=== PATIENT | female | born 1935 | race Caucasian/White ===

== ENCOUNTER 2017-07-31 14:42 | Emergency (ER) | payer OTHER, MEDICARE ==
[~2017-07-31] VITALS: Ht 165.1 cm; Wt 45.4 kg
[~2017-07-31 14:42] MED LIST: ALBUTEROL1.25 MG/1 INH/SOL; AMERINET CHOIC500 MG PO; AMITIZA24 MCG PO; CITALOPRAM HBR10 MG PO; COLACE100 MG PO; GOLYTELY 40004000 ML PO; INCRUSE ELLI62.5 MCG PO; LEVOXYL50 MCG PO; LORAZEPAM0.5 M1 PO; MARINOL2.5 MG PO; MIRALAX17 GM PO; MOTRIN 600 MG600 MG PO; MULTIPLE VITAM1 EAC2 PO; Mucinex PO; OXYCODONE5 MG PO; PENICILLIN V P500 M1 PO; PERCOCET 325 MG1 TA2 PO; PREDNICOT10 MG PO; PREDNICOT5 MG PO; PREDNISONE10 M2 PO; PREDNISONE5 M1 PO; PRILOSEC OTC20 M1 PO; SPIRIVA 18 MCG18 MCG INH; TRAMADOL50 MG PO; TYLENOL500 MG PO; Theragran Vitamins PO; ULTRAM(MONOGRAP50 MG PO; ZITHROMAX500 M2 PO
--- NOTE | 2017-07-31 18:14 | ED UPPER/LOWER EXTREMITY COMPL ---
History of Present Illness General Chief Complaint: Fall Stated Complaint: FALL SKIN TEAR LFT ARM Source: patient Exam Limitations: no limitations Vital Signs & Intake/Output Vital Signs & Intake/Output Vital Signs Date Time Temp Pulse Resp B/P B/P Pulse O2 O2 Flow FiO2 Mean Ox Delivery Rate 07/31 1815 98.5 78 19 102/73 96 Nasal 1.5L Cannula 07/31 1549 97.4 78 18 113/68 94 Nasal 2.0L Cannula Allergies Coded Allergies: STATINS (UNKNOWN 09/07/15) codeine (HEADACHES 05/24/17) Reconcile Medications Amoxicillin 500 MG TABLET 1 TAB PO BID WOUND CARE Citalopram Hydrobromide (Citalopram HBr) 10 MG TABLET 1 TAB PO DAILY MENTAL HEALTH (Reported) Ibuprofen (Motrin 600 MG Tab) 600 MG TAB 1 TAB PO Q6P PRN PAIN Levothyroxine Sodium (Levoxyl) 50 MCG TABLET 1 TAB PO DAILY THYROID (Reported ) Lorazepam 0.5 MG TABLET 1 TAB PO QHS SLEEP (Reported) Multivitamin (Multiple Vitamins) 1 EACH TABLET 1 TAB PO DAILY SUPPLEMENT ( Reported) Penicillin V Potassium 500 MG TABLET 1 TAB PO 4 TIMES/DAY PROPHYLAXIS ( Reported) Umeclidinium [place] (Incruse Ellipta) 62.5 MCG BLST.W.DEV 1 PUFF PO DAILY BREATHING PROBLEMS (Reported) Triage Note: PT TO ED S/P "UNPLUGGING TV AND FELL, SCRABBED MY LEFT LOWER ARM", BANDAIDE IN PLACE NO ACTIVE BLEEDING NOTED. PT DENIES HEAD STRIKE OR LOC. ALERT AND ORIENTED IN TRIAGE. Triage Nurses Notes Reviewed? yes Onset: Abrupt Duration: constant Timing: recent history Severity: mild Severity Numbers: 1 HPI: Patient is a 82-year-old female who presents mentions a nap yesterday while in the standing position bent over unplugging her TV and she subsequently lean forward and scraped her left wrist and hand to the wall resulting in skin care Bleeding has been controlled tetanus is unknown patient denies any pain denies any preceding episodes of lightheadedness sensation of dizziness denies any head strike patient is here for wound evaluation Patient denies any pain to the left wrist or hand or elbow (Luke NORRIS,Lincoln) Past History Travel History Traveled to [place] past 21 day No Medical History Any Pertinent Medical History? 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 No (Lincoln Lizarraga) Review of Systems Review of Systems Constitutional: Reports: no symptoms. EENTM: Reports: no symptoms. Respiratory: Reports: no symptoms. Cardiovascular: Reports: no symptoms. Gastrointestinal/Abdominal: Reports: no symptoms. Genitourinary: Reports: no symptoms. Musculoskeletal: Reports: no symptoms. Skin: Reports: see HPI. Neurological/Psychological: Reports: no symptoms. Hematologic/Endocrine: Reports: see HPI, bleeding. Immunological: Reports: no symptoms. All Other Systems: Reviewed and Negative (Lincoln Lizarraga) Physical Exam Physical Exam General Appearance: no apparent distress, alert, thin Head: atraumatic Eyes: Bilateral: normal appearance. Ears, Nose, Throat: hearing grossly normal Neck: normal inspection Cardiovascular/Respiratory: no respiratory distress Peripheral Pulses: 2+ radial (L) Elbow Left: normal range of motion, normal inspection Hand Left: normal range of motion, evidence of injury Neurologic/Tendon: normal sensation, normal motor functions, normal tendon functions Skin: normal color Diagram Hands Back 1) 2.5 cm skin flap superficial skin tear no active bleeding 2) 2 cm skin flap superficial skin tear no active bleeding 3) 1 cm superficial skin flap skin tear no active bleeding 4) Full active range of motion of left wrist nontender dermatomes intact radial pulse +2 capillary refill less than 2 seconds (Lincoln Lizarraga) Progress Differential Diagnosis: arterial insufficiency, compartment syndrome, contusion, dislocation, DVT, fracture, gout, septic arthritis, sprain, tendon injury Plan of Care: No concerns of fracture on examination patient has no tenderness upon palpation No concerns of tendon deficit Patient was offered tetanus update however declines The wound was irrigated was 360 mL of sterile water then using benzoin and Steri -Strips the margins were revised to THE 3 superficial skin tear wound An Wild wrap was placed to left wrist (Lincoln Lizarraga) Departure Departure Disposition: HOME OR SELF CARE Condition: Stable Clinical Impression Primary Impression: Tear of skin of left wrist Referrals: Beena Mcdaniel APRN (PCP/Family) Additional Instructions: DISCUSSED BEGIN TO THE CHANGE THE DRESSINGS ONCE A DAY for the following 4 days and leave the area open to improve healing THE STERI STRIPS THAT HAVE BEEN APPLIED WILL FALL OFF IN 4-5 DAYS IF YOU NOTE SIGNS OF INFECTION SUCH REDNESS, PAIN, SWELLING, DISCHARGE RETURN TO THE ER Begin the prescription of amoxicillin as directed keep area dry and clean YOU CAN Prescriptions waiting at [facility] Departure Forms: Customer Survey General Discharge Information Prescriptions: Current Visit Scripts Amoxicillin 1 TAB PO BID #10 TAB (Lincoln Lizarraga) PA/CHECKOUT SUPERVISOR Co-Sign Statement Statement: ED Attending supervision documentation- [x] I saw and evaluated the patient. I have also reviewed all the pertinent lab results and diagnostic results. I agree with the findings and the plan of care as documented in the PA's/CHECKOUT SUPERVISOR's documentation. [] I have reviewed the ED Record and agree with the PA's/CHECKOUT SUPERVISOR's documentation. [] Additions or exceptions (if any) to the PAs/CHECKOUT SUPERVISOR's note and plan are summarized below: [] (Yaw Ferrari DO)
[2017-07-31 18:15] VITALS: BP 102/73
[2017-07-31] MEDS ORDERED: AMOXICILLIN500 M3 PO (18:36)
== END 2017-07-31 18:56 ==
LOC: ERH 14:42
DX: S61.512A Laceration without foreign body of left wrist, initial encounter (principal); W45.8XXA Other foreign body or object entering through skin, initial encounter; Y92.9 Unspecified place or not applicable; Y93.9 Activity, unspecified

== ENCOUNTER 2017-11-22 12:46 | Inpatient (IN) | payer OTHER, MEDICARE ==
[~2017-11-22] VITALS: Ht 160 cm; Wt 44.6 kg
[~2017-11-22 12:46] MED LIST changes: +AMOXICILLIN500 M3 PO
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
[2017-11-22 14:29] LABS: ABSOLUTE BASOPHIL COUNT 0 /CUMM (0.0-0.2); ABSOLUTE EOSINOPHIL COUNT 0 /CUMM (0.0-0.7); ABSOLUTE GRANULOCYTE CT 6.8 /CUMM (1.4-6.5); ABSOLUTE LYMPH COUNT 0.4 /CUMM (1.2-3.4); ABSOLUTE MONOCYTE COUNT 0.4 /CUMM (0.10-0.60); BASOPHIL % 0.3 % (0.0-2.0); EOSINOPHIL % 0.2 % (0-5); GRANULOCYTE % 89.1 % (42.2-75.2); HEMATOCRIT 36.2 % (37-47); MEAN CORPUSCULAR HGB 30.3 PG (27.0-31.0); MEAN CORPUSCULAR HGB CONC 32.4 G/DL (33.0-37.0); MEAN CORPUSCULAR VOLUME 93.7 FL (81.0-99.0); MEAN PLATELET VOLUME 6.8 FL (7.4-10.4); PLATELET COUNT 218 /CUMM (130-400); RBC DISTRIBUTION WIDTH 16.5 % (11.5-14.5); RED BLOOD CELL CT 3.86 /CUMM (4.20-5.40); WHITE BLOOD CELL COUNT 7.6 /CUMM (4.8-10.8)
[2017-11-22 14:42] LABS: PT 11.6 SEC (9.4-12.5); PTT 29 SEC (25-37)
--- NOTE | 2017-11-22 14:57 | RADIOLOGY REPORT ---
EXAMINATION: XR PORTABLE CHEST CLINICAL INFORMATION: Cough, weakness, shortness of breath. Evaluate for pneumonia. COMPARISON: None TECHNIQUE: Portable AP 85 degrees upright view of the chest was obtained. FINDINGS: The heart is normal size. There is no change in the tortuous, ectatic, atherosclerotic thoracic aorta. There is no change in mild bilateral upper lobe scarring. There is no definite congestion or focal consolidation. IMPRESSION: Stable chronic findings. No acute cardiopulmonary process.
--- NOTE | 2017-11-22 15:33 | History & Physical ---
Shital Doan 11/22/17 1533: General Information and HPI MD Statement: I have seen and personally examined RADHA ORTIZ and documented this H&P. The patient is a 82 year old F who presented with a patient stated chief complaint of shortness of breath. Source of Information: patient, family, old records Exam Limitations: no limitations History of Present Illness: 80 year woman from home, with past medical history of COPD on 1.5L of home O2, Non Hodgkins Lymphoma status post chemo and radiation therapy in 2016 with complications of right eye blindness and decreased sensation on right side of face, history of lung nodule, salivary carcinoma, anxiety and hypothyroidism brought in for evaluation of worsening shortness of breath and increasing oxygen requirements. Her sister whom she lives with has been noticing worsening deconditioning over the past week. On Friday patient had 2 episodes of vomiting that was nonbloody, on she developed some right sided chest pain at his worst 8 out of 10 which she describes as at times sharp with radiation to the left side, sometimes lasting 1 hour. On interview she was pain-free. She tried Tylenol which seemed to help with the pain. Denies any fever, cought, expectoration, palpitations, at baseline she sleeps in a reclined angle. She also been experiencing some abdominal pain more mid with radiation to left upper quadrant describes it as an aching and not associated with food, diarrhea or bright red bleeding per rectum. She has been having generalized weakness and more weakness in her lower leg extremities associated with decreased p.o. intake. The night before admission she said she fell when she miscalculated sitting on the sofa denies any dizziness, loss of awareness, or head strike. She is due to go to [facility] next Friday for a PET scan. Allergies/Medications Allergies: Coded Allergies: STATINS (UNKNOWN PT DOES NOT REMEMBER 11/22/17) codeine (HEADACHES 05/24/17) Home Med list Citalopram Hydrobromide (Citalopram HBr) 10 MG TABLET 1 TAB PO DAILY DEPRESSION (Reported) Levothyroxine Sodium (Levoxyl) 50 MCG TABLET 1 TAB PO DAILY THYROID (Reported ) Lorazepam 0.5 MG TABLET 1 TAB PO QHS SLEEP (Reported) Multivitamin (Multiple Vitamins) 1 EACH TABLET 1 TAB PO DAILY SUPPLEMENT ( Reported) Umeclidinium [place] (Incruse Ellipta) 62.5 MCG BLST.W.DEV 1 PUFF PO DAILY COPD (Reported) Compliance With Home Meds: GOOD Past History Travel History Traveled to [place] past 21 day No Medical History Neurological: NONE EENT: NONE Cardiovascular: hypertension, hyperlipidemia Respiratory: COPD, WEARS 2L AT BASELINE Gastrointestinal: ERCP Hepatic: NONE Renal: NONE Musculoskeletal: NONE Psychiatric: anxiety Endocrine: hypothyroidism Blood Disorders: NONE Cancer(s): NON HODGKINS LYMPHOMA, MELANOMA, SALIVARY CARCINOMA TRIAGE SPECIALIST/Reproductive: HYSTERECTOMY History of MRSA: No History of VRE: No History of CDIFF: No Surgical History Surgical History: cholecystectomy, CYBERKNIFE SURGERY SINUS SURGERY FOR CANCER Past Family/Social History Family History Relations & Conditions if any Relation not specified for: *No pertinent family history Psychosocial History Who Do You Live With? Sister Services at Home: None Primary Language: Sierra Leonean Functional Ability ADLs Independent: dressing, eating, toileting, bathing. Ambulation: walker Review of Systems Review of Systems Constitutional: Reports: see HPI. Exam & Diagnostic Data Last 24 Hrs of Vital Signs/I&O Vital Signs Date Time Temp Pulse Resp B/P B/P Pulse O2 O2 Flow FiO2 Mean Ox Delivery Rate 11/22 1737 97.6 93 16 118/72 93 Nasal 2.0L Cannula 11/22 1624 98.4 90 22 114/58 95 Nasal 2.0L Cannula 11/22 1315 95 Nasal 4.0L Cannula 11/22 1310 97.2 90 20 96/56 95 Nasal 4.0L Cannula Intake & Output 11/22 1600 11/22 0800 11/22 0000 Intake Total Output Total Balance Patient 105 lb Weight Weight Reported by Patient Measurement Method Physical Exam General Appearance Alert, Oriented X3, Cooperative, No Acute Distress, severe kyphosis HEENT Atraumatic, dry mucous membranes, right eye closed and crusted, left eye round and reactive to light Neck Supple, No JVD, +2 Carotid Pulse wo Bruit Lymphatic Cervical nl Cardiovascular Regular Rate, Normal S1, Normal S2 Lungs b/l decreased Bs Abdomen Normal Bowel Sounds, Soft, tenderness to palplation in mid to right upper quadrant Neurological Normal Speech, Normal Tone, Reflexes 2+, decreased power L>R 2/5,3 /5 respectively Extremities No Edema, Normal Pulses Diagnostic Data EKG Results NSR CXR Results FINDINGS: The heart is normal size. There is no change in the tortuous, ectatic, atherosclerotic thoracic aorta. There is no change in mild bilateral upper lobe scarring. There is no definite congestion or focal consolidation. IMPRESSION: Stable chronic findings. No acute cardiopulmonary process. Assessment/Plan Assessment: 80 year woman from home, with past medical history of COPD on 1.5L of home O2, Non Hodgkins Lymphoma status post chemo and radiation therapy in 2016 with complications of right eye blindness and decreased sensation on right side of face, history of lung nodule, salivary carcinoma, anxiety and hypothyroidism brought in for evaluation of worsening shortness of breath and increasing oxygen requirements. Found to be hypoxic in the ED and her breathing improved with nebulization and one-time dose of 125 IV Solu-Medrol Vitals on admission temperature 97.2, heart rate 90, respiratory 20, blood pressure 96/56, saturating 95% on 4 L Labs significant for metabolic acidosis likely compensatory, proBNP of 300, lactic acid 0.6, troponin negative. Chest x-ray just shows tortuous atherosclerotic thoracic aorta Problem list: Acute on chronic hypoxic respiratory failure Hypothyroidism History of non-Hodgkin's lymphoma History of salivary carcinoma Plan: Admit to telemetry floor for continuous cardiac monitoring we will trend troponin EKG to rule out ACS ATC/nebs, supplemental oxygen Continue IV steroids and azithromycin Pulm consult in a.m. [patient sees Dr. Zelaya as outpatient] dvt ppx sc lovenox code status DNR/DNI As Ranked By This Provider Problem List: 1. COPD (chronic obstructive pulmonary disease) 2. Chest pain Core Measures/Misc (03/23) Acute Coronary Syndrome ACS Diagnosis: No Congestive Heart Failure Congestive Heart Failure Diagnosis No Cerebrovascular Accident CVA/TIA Diagnosis: No VTE (View Protocol) VTE Risk Factors Cancer/chemo/othr therapy No Mechanical VTE Prophylaxis d/t N/A MechProphylax Ordered No VTE Pharm Prophylaxis d/t NA PharmProphylax ordered Sepsis (View protocol) Sepsis Present: No Delroy Dobbs 11/22/17 6702: Attending MD Review Statement Attending Statement Attending MD Statement: examined this patient, discuss w/resident/PA/MANAGING MANAGER, agreed w/resident/PA/MANAGING MANAGER, discussed with family, reviewed EMR data (avail) Attending Assessment/Plan: 82 yr old f with pmh of copd on home oxygen, NHL s/p chemo and radiation who lives with her sister presented with worsening sob and weakness and chest pain over the last few dasy. Pt improved with iv solumedrol and nebs in ER. Her torp in ER was negative. CXR done in ER shows no pnemonia. Pt also had some vomitting on friday. Acute hypoxic resp failure secondary to copd exac- cont on iv steroid and zithromax. will get pulm consult. Put on TRC nebs. CHest pain - admit on tele and r/o ACS with serial trop. d/w pt and pts sister at bedside the care plan.
[2017-11-22 17:37] VITALS: BP 118/72
[2017-11-22 22:18] VITALS: BP 132/78
[2017-11-23 06:56] VITALS: BP 124/76
--- NOTE | 2017-11-23 09:14 | PN- Housestaff ---
Luis MCKAY,[facility] 11/23/17 0914: Subjective Follow-up For: Acute hypoxic respiratory possibly secondary to COPD exacerbation Tele-Events Since Last Visit: Sinus rhythm Subjective: Afebrile, hemodynamically stable, heart rate in the 90s, saturating well on 3 L of oxygen(he was 1.5-2 baseline). She looks sleepy and mildly lethargic but appropriately responds to questions. She denies any current active complaints Review of Systems Constitutional: Reports: no symptoms, see HPI. Objective Last 24 Hrs of Vital Signs/I&O Vital Signs Date Time Temp Pulse Resp B/P B/P Pulse O2 O2 Flow FiO2 Mean Ox Delivery Rate 11/23 0800 94 Nasal 3.0L Cannula 11/23 0656 97.6 95 18 124/76 90 Nasal Cannula 11/23 0000 Nasal 3.0L Cannula 11/22 2218 97.5 97 18 132/78 91 Nasal Cannula 11/22 2046 Nasal 2.0L Cannula 11/22 1800 Nasal 2.5L Cannula 11/22 1737 97.6 93 16 118/72 93 Nasal 2.0L Cannula 11/22 1624 98.4 90 22 114/58 95 Nasal 2.0L Cannula Intake & Output 11/23 1600 11/23 0800 11/23 0000 Intake Total 635 450 Output Total 250 250 Balance 385 200 Intake, IV 615 150 Intake, Oral 20 300 Output, Urine 250 250 Patient 44.452 kg Weight Weight Bed scale Measurement Method Physical Exam General Appearance: Alert, Oriented X3, Cooperative, mildly lethargic and sleepy Skin: No Rashes HEENT: Atraumatic, PERRLA, EOMI, Mucous Membr. moist/pink Neck: No JVD Cardiovascular: Regular Rate, Normal S1, Normal S2, No Murmurs Lungs: decrease air-entry over lung base bilaterally Abdomen: Soft, No Tenderness Neurological: Normal Speech Extremities: No Clubbing, No Cyanosis, No Edema Current Medications: Current Medications Sig/Abhi Start time Last Medication Dose Route Stop Time Status Admin Acetaminophen 500 MG Q6P PRN 11/22 2345 AC 11/23 PO 0859 Albuterol Sulfate 3 ML Q4P PRN 11/22 2145 AC INH Aspirin 81 MG DAILY 11/22 1703 AC 11/23 PO 0819 Azithromycin 500 MG DAILY@1430 11/23 1430 AC Sodium Chloride 250 ML IV Azithromycin 500 MG ONCE ONE 11/22 1330 DC 11/22 Sodium Chloride 250 ML IV 11/22 1429 1437 Citalopram 10 MG DAILY 11/23 0900 AC 11/23 Hydrobromide PO 08 Enoxaparin Sodium 40 MG DAILY 11/23 0900 CAN SC Enoxaparin Sodium 40 MG DAILY 11/23 0900 AC 11/23 SC 08 Levothyroxine Sodium 0.05 MG DAILY AC 11/23 0700 AC 11/23 PO 0534 Lorazepam 0.5 MG AT BEDTIME 11/22 2100 AC 11/22 PO 11/29 Methylprednisolone 40 MG Q8 11/22 2200 AC 11/23 IV 0532 Methylprednisolone 0 .STK-MED ONE 11/22 1430 DC .ROUTE Multivitamins 1 TAB DAILY 11/23 09 CAN PO Multivitamins 1 TAB DAILY 11/23 0900 AC 11/23 Therapeutic PO 08 Sodium Chloride 1,000 ML Q13H 11/22 1628 AC 11/23 IV 11/23 1827 0821 Last 24 Hrs of Lab/Jorge A Results Last 24 Hrs of Labs/Mics: Laboratory Tests 11/23/17 0220: Troponin I < 0.01 11/23/17 0125: Urine Color YEL, Urine Clarity HAZY H, Urine pH 6.0, Ur Specific [place] >= 1.030, Urine Protein TRACE H, Urine Ketones 40 H, Urine Nitrite NEG, Urine Bilirubin NEG@ICTO, Urine Urobilinogen 0.2, Ur Leukocyte Esterase SMALL H, Ur Microscopic SEDIMENT EXAMINED, Urine RBC 1-3, Urine WBC 25-50 H, Ur Epithelial Cells FEW, Urine Bacteria FEW H, Hyaline Casts RARE H, Urine Hemoglobin TRACE- INTACT, Urine Glucose NEG 11/22/17 2130: Troponin I < 0.01 11/22/17 1639: Lipase Cancelled 11/22/17 1611: Lactic Acid Cancelled 11/22/17 1405: Lactic Acid Cancelled, [id number] Pept Cancelled 11/22/17 1405: Bicarbonate Actual 35 H, Mixed VBG pH 7.25 L, Mixed VBG pCO2 80 H, Mixed VBG O2 Saturation 48 H, Carboxyhemoglobin 1.2 L, O2 Concentration % 4L, O2 Delivery Method NC, Anion Gap 9, Estimated GFR > 60, BUN/Creatinine Ratio 31.7 H, Glucose 119 H, Lactic Acid 0.6 L, Calcium 9.0, Total Bilirubin 0.7, AST 30, ALT 26, Alkaline Phosphatase 76, Troponin I < 0.01, Yfo-G-[id number] Pept 300 H, Total Protein 6.3, Albumin 3.7, Globulin 2.6, Albumin/Globulin Ratio 1.4, Lipase 47, PT 11.6, INR 1.06, APTT 29, CBC w Diff NO MAN DIFF REQ, RBC 3.86 L, MCV 93.7, MCH 30.3, MCHC 32.4 L, RDW 16.5 H, MPV 6.8 L, Gran % 89.1 H, Lymphocytes % 5.1 L, Monocytes % 5.3, Eosinophils % 0.2, Basophils % 0.3, Absolute Granulocytes 6.8 H, Absolute Lymphocytes 0.4 L, Absolute Monocytes 0.4, Absolute Eosinophils 0, Absolute Basophils 0, Phlebotomy Draw Site [facility] PORT Microbiology 11/22 1425 BLOOD: Blood Culture - RES 11/22 1405 BLOOD: Blood Culture - RES Assessment/Plan Assessment: 80/F with PMHx of COPD on 1.5L O2 at home, non-hodgkins lymphoma s/p chemo and radiation therapy in 2016 with complications of right eye blindness and decreased sensation on right side of face, history of lung nodule, salivary carcinoma, anxiety and hypothyroidism brought in for evaluation of worsening SOB and increasing oxygen requirements. Found to be in acute hypoxic respiratory failure in the ED, improved after nebulizer's and IV steroids. Currently she reports improvement of her symptom however she still require 3 L of oxygen to maintain oxygen saturation in the mid to lower 90s. She denies any chest pain fever, chills, or palpitation. ACS was ruled out with serial troponin and EKG. No sign or symptoms suggestive of pneumonia. She reports one episode of nonbloody vomiting on Friday and denies any episodes of vomiting since then. Problem list: * Acute on chronic hypoxic respiratory failure ( O2 sats 63% on ED) most likely COPD exacerbation. * Hypothyroidism * History of non-Hodgkin's lymphoma * History of salivary carcinoma Plan: We will continue * Telemetry monitoring * IV Solu-Medrol * IV azithromycin * TRC/nebs * Oxygen, will try to taper down as tolerated * Rest of home medication includes levothyroxine, citalopram, and aspirin -Regular diet -DVT ppx sc lovenox -DNR/DNI Problem List: 1. COPD exacerbation Pain Ratin Pain Location: na Pain Goal: Remain pain free Pain Plan: See A&P Tomorrow's Labs & Rationales: See A&P RinkuFernandokathe 11/23/17 1315: Attending Review Statement Attending Statement Attending MD Statement: examined this patient, discuss w/resident/PA/MULTIMEDIA PROJECT MANAGER, agreed w/resident/PA/MULTIMEDIA PROJECT MANAGER, reviewed EMR data (avail), discussed with nursing Attending Assessment/Plan: 82 yr old f with pmh of copd on home oxygen, NHL s/p chemo and radiation who lives with her sister presented with worsening sob and weakness and chest pain over the last few days. Pt improved with iv solumedrol and nebs in ER. Her torp in ER was negative. CXR done in ER shows no pnemonia. Pt also had some vomitting on friday. Acute hypoxic resp failure secondary to copd exac- cont on iv steroid and zithromax. will get pulm consult. cont on [facility] nebs. She is currently on 3 L oxygen by [place]. CHest pain - admit on tele and r/o ACS with serial trop. Trop times 3 negative. Await cardiology consult.
[2017-11-23 14:25] VITALS: BP 118/68
[2017-11-23 22:12] VITALS: BP 152/78
[2017-11-24 06:51] VITALS: BP 148/80
--- NOTE | 2017-11-24 07:08 | PN- Housestaff ---
David MCKAY,[facility] 11/24/17 0708: Subjective Follow-up For: COPD Exacerbation Complaints: no complaints Tele-Events Since Last Visit: NSR/1st degree AVB with HR 69-78. No overnight events. Subjective: Patient seen and examined. States her breathing is improved today. She remains on high FiO2. Worked with PT earlier with desaturation on ambulation. She states that she gets symptoms of acid reflux with associated chest pain and the chest pain that she experienced earlier was similar to the one that she experiences with regurgitation. Review of Systems Constitutional: Reports: no symptoms. Objective Last 24 Hrs of Vital Signs/I&O Vital Signs Date Time Temp Pulse Resp B/P B/P Pulse O2 O2 Flow FiO2 Mean Ox Delivery Rate 11/24 0800 Nasal 3.0L Cannula 11/24 0651 96.7 83 16 148/80 100 Room Air 11/24 0000 Nasal 3.0L Cannula 11/23 2212 98.5 87 16 152/78 92 Nasal 3.0L Cannula 11/24 2007 94 Nasal 2.0L Cannula 11/23 1651 98.0 99 Nasal 3.0L Cannula 11/23 1600 Nasal 3.0L Cannula 11/23 1425 97.9 85 20 118/68 98 Room Air 11/23 1359 93 Nasal 2.0L Cannula Intake & Output 11/24 1600 11/24 0800 11/24 0000 Intake Total 50 1720 Output Total 300 700 Balance -250 1020 Intake, IV 1000 Intake, Oral 50 720 Output, Urine 300 700 Patient 101 lb Weight Weight Bed scale Measurement Method Physical Exam General Appearance: Alert, Oriented X3, Cooperative, Mild Distress Skin: No Rashes, No Breakdown Skin Temp/Moisture Exam: Warm/Dry Sepsis Skin Exam (color): Normal for Ethnicity HEENT: Atraumatic Cardiovascular: Normal S1, Normal S2, No Murmurs Lungs: Normal Air Movement, bibasilar crackles Abdomen: Soft, No Tenderness Neurological: Normal Speech Extremities: No Edema Assessment/Plan Assessment: 80 yo F with PMHx of COPD on 1.5L O2 at home, non-hodgkins lymphoma s/p chemo and radiation therapy in 2016 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 Assessment: 1. Acute on chronic hypoxic respiratory failure ( O2 sats 63% on ED) most likely COPD exacerbation. 2. History of Hypothyroidism 3. History of non-Hodgkin's lymphoma Plan: * Continue oxygen supplementation to maintain target saturations >92%. Currently on 2 L of oxygen. * Will taper down FiO2 as tolerated * Decrease IV methylprednisolone to 40 mg every 12. Continue IV azithromycin for today. * ACS was ruled out with 3 sets of serial troponins and EKGs. * No further complaints of chest pain. * GI prophylaxis with PPI * Continue citalopram 10 mg and levothyroxine 50 mcg. * Diet: Regular * DVT prophylaxis: SC Lovenox * Code: DNR/DNI Problem List: 1. COPD exacerbation Pain Ratin Pain Location: none Pain Goal: Remain pain free Pain Plan: none Tomorrow's Labs & Rationales: CBC, BEP VeeHectorjuni 11/24/17 1358: Attending MD Review Statement Attending Statement Attending MD Statement: examined this patient, discuss w/resident/PA/DIRECTOR OF SECURITY, agreed w/resident/PA/DIRECTOR OF SECURITY, discussed with family, reviewed EMR data (avail), discussed with nursing, discussed with case mgmt, reviewed images, amended to note Attending Assessment/Plan: 82 yr old f with pmh of copd on home oxygen, NHL s/p chemo and radiation who lives with her sister presented with worsening sob and weakness and chest pain over the last few days. Pt improved with iv solumedrol and nebs in ER. Her torp in ER was negative. CXR done in ER shows no pnemonia. Today patient c/o pain in chest after eating. Acute hypoxic resp failure secondary to copd exac- cont on iv steroid and taper 40 q12, zithromax. pulm consult. cont on TRC nebs. She is currently on 3 L oxygen by [place]. Chest pain -negative cardiac enzymes. Await cardiology consult. stress gastritis add PPI and monitor. gi/dvt prophyalxis DNR/DNI.
[2017-11-24 14:40] VITALS: BP 130/76
--- NOTE | 2017-11-24 16:05 | Patient Discharge Instructions ---
Discharge Instructions General Discharge Information You were seen/treated for: COPD Exacerbation Special Instructions: Please follow up with your PCP and slurry mixer within one week of discharge. Please follow up with grocery caddy or with a CTA abdomen for abdominal pain if needed (can be referred by your PCP) Diet Continue normal diet: Yes Additional DIET Information: full liquids and mechanical ground Activity Full Activity/No Limits: Yes Activity Self Limited: Yes Acute Coronary Syndrome Inclusion Criteria At DC or during hospital stay patient has or had the following: ACS DIAGNOSIS No Discharge Core Measures Meds if any: Prescribed or Continued at Discharge Meds if any: NOT Prescribed or Continued at Discharge Congestive Heart Failure Inclusion Criteria At DC or during hospital stay patient has or had the following: CHF DIAGNOSIS No Discharge Core Measures Meds if any: Prescribed or Continued at Discharge Meds if any: NOT Prescribed or Continued at Discharge Cerebrovascular accident Inclusion Criteria At DC or during hospital stay patient has or had the following: CVA/TIA Diagnosis No Discharge Core Measures Meds if any: Prescribed or Continued at Discharge Meds if any: NOT Prescribed or Continued at Discharge Venous thromboembolism Inclusion Criteria VTE Diagnosis No VTE Type NONE VTE Confirmed by (Test) NONE Discharge Core Measures - Per Current guidelines, there needs to be overlap - treatment for the first 5 days of Warfarin therapy. - If discharged on Warfarin prior to 5 days of - overlap therapy, the patient will need to be - assessed for post discharge needs including - *Post discharge parental anticoagulation - *Warfarin and/or parental anticoagulation education - *Follow up date to check INR post discharge At least 5 days overlap therapy as Inpatient No Meds if any: Prescribed or Continued at Discharge Note: Overlap Therapy is Warfarin and Anticoagulant Meds if any: NOT Prescribed or Continued at Discharge
[2017-11-24 22:17] VITALS: BP 150/74
[2017-11-25 05:52] LABS: ABSOLUTE BASOPHIL COUNT 0 /CUMM (0.0-0.2); ABSOLUTE EOSINOPHIL COUNT 0 /CUMM (0.0-0.7); ABSOLUTE GRANULOCYTE CT 5.9 /CUMM (1.4-6.5); ABSOLUTE LYMPH COUNT 0.5 /CUMM (1.2-3.4); ABSOLUTE MONOCYTE COUNT 0.4 /CUMM (0.10-0.60); BASOPHIL % 0 % (0.0-2.0); EOSINOPHIL % 0 % (0-5); GRANULOCYTE % 86.8 % (42.2-75.2); MEAN CORPUSCULAR HGB 30.3 PG (27.0-31.0); MEAN CORPUSCULAR HGB CONC 32.2 G/DL (33.0-37.0); MEAN CORPUSCULAR VOLUME 93.9 FL (81.0-99.0); MEAN PLATELET VOLUME 6.7 FL (7.4-10.4); PLATELET COUNT 258 /CUMM (130-400); RBC DISTRIBUTION WIDTH 16.8 % (11.5-14.5); RED BLOOD CELL CT 3.52 /CUMM (4.20-5.40); WHITE BLOOD CELL COUNT 6.8 /CUMM (4.8-10.8)
[2017-11-25 06:30] VITALS: BP 154/90
--- NOTE | 2017-11-25 07:04 | PN- Housestaff ---
David MCKAY,[facility] 11/25/17 0703: Subjective Follow-up For: COPD Exacerbation Chest Pain Tele-Events Since Last Visit: NSR/1st degree AVB with HR 78-85. No overnight events. Subjective: Had two episodes of vomiting this morning due to choking with food. Review of Systems Constitutional: Reports: no symptoms. Objective Last 24 Hrs of Vital Signs/I&O Vital Signs Date Time Temp Pulse Resp B/P B/P Pulse O2 O2 Flow FiO2 Mean Ox Delivery Rate 11/25 0630 97.6 82 22 154/90 98 Nasal 2.0L Cannula 11/25 0000 Nasal 3.0L Cannula 11/24 2217 98.6 84 24 150/74 96 11/24 2151 96 Nasal 2.0L Cannula 11/24 1440 97.5 97 18 130/76 93 Nasal 2.0L Cannula 11/24 1332 99 Nasal 3.0L Cannula 11/24 0800 Nasal 3.0L Cannula Intake & Output 11/25 0800 11/25 0000 11/24 1600 Intake Total 120 560 950 Output Total 450 500 500 Balance -330 60 450 Intake, IV 290 Intake, Oral 120 560 660 Output, Urine 450 500 500 Patient 105 lb Weight Physical Exam General Appearance: Alert, Oriented X3, Cooperative, Mild Distress Skin: No Rashes, No Breakdown Skin Temp/Moisture Exam: Warm/Dry Sepsis Skin Exam (color): Normal for Ethnicity HEENT: Atraumatic Cardiovascular: Normal S1, Normal S2, No Murmurs Lungs: decreased breath sounds Abdomen: Soft, No Tenderness Neurological: Normal Speech Extremities: No Edema Last 24 Hrs of Lab/Jorge A Results Last 24 Hrs of Labs/Mics: Laboratory Tests 11/25/17 0520: Anion Gap 3 L, Estimated GFR > 60, BUN/Creatinine Ratio 30.0 H, Total Bilirubin 0.4, Direct Bilirubin 0.2, AST 19, ALT 25, Alkaline Phosphatase 59, Total Protein 5.5 L, Albumin 3.2 L, CBC w Diff NO MAN DIFF REQ, RBC 3.52 L, MCV 93.9, MCH 30.3, MCHC 32.2 L, RDW 16.8 H, MPV 6.7 L, Gran % 86.8 H, Lymphocytes % 7.9 L, Monocytes % 5.3, Eosinophils % 0, Basophils % 0, Absolute Granulocytes 5.9, Absolute Lymphocytes 0.5 L, Absolute Monocytes 0.4, Absolute Eosinophils 0, Absolute Basophils 0 Assessment/Plan Assessment: 80 yo F with PMHx of COPD on 1.5L O2 at home, non-hodgkins lymphoma s/p chemo and radiation therapy in 2016 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 Assessment: 1. Acute on chronic hypoxic respiratory failure ( O2 sats 63% on ED) most likely COPD exacerbation. 2. History of Hypothyroidism 3. History of non-Hodgkin's lymphoma Plan: * Continue oxygen supplementation to maintain target saturations >92%. Currently on 2 L of oxygen. * Will taper down FiO2 as tolerated * Decrease IV Solu-Medrol to 40mg daily. Continue IV azithromycin for now. * ABG * TRC eval. She needs aggressive pulmonary toilet. If this doesn't clear her secretions, will try mucomist. * Swallow eval today with MBS as there is concern for aspiration. * CT Abd/Pelvis with IV contrast for assessing GI pathology. However, this will have to be done tomorrow as the patient already got contrast with MBS today. * GI prophylaxis with PPI * Continue citalopram 10 mg and levothyroxine 50 mcg. * Diet: Regular * DVT prophylaxis: SC Lovenox * Code: DNR/DNI Problem List: 1. COPD exacerbation Pain Ratin Pain Location: none Pain Goal: Remain pain free Pain Plan: none Tomorrow's Labs & Rationales: CBC Adan Baxter 11/25/17 1100: Attending MD Review Statement Attending Statement Attending MD Statement: examined this patient, discuss w/resident/PA/MANUFACTURING LEAD, agreed w/resident/PA/MANUFACTURING LEAD, discussed with family, reviewed EMR data (avail), discussed with nursing, discussed with case mgmt, reviewed images, amended to note Attending Assessment/Plan: 82 yr old f with pmh of copd on home oxygen, NHL s/p chemo and radiation who lives with her sister presented with worsening sob and weakness and chest pain over the last few days. Pt improved with iv solumedrol and nebs in ER. Her torp in ER was negative. CXR done in ER shows no pnemonia. patient c/o pain in abdomen after eating associated with vomiting. thick sputum+ . O2 supplementation. Minimal use of accessory muscles. Acute hypoxic resp failure secondary to copd exac- solu- medrol 40 q12, zithromax. Follow pulmonary. cont on TRC nebs. Chest pain/GERD -negative cardiac enzymes. Await cardiology consult. stress gastritis add PPI and monitor. abdominal pain with vomiting: NPO , obtain ct abd/pelvis, speech/swallow assessment. Discontinue telemetry gi/dvt prophyalxis DNR/DNI.
--- NOTE | 2017-11-25 08:54 | Cons- Pulmonary ---
General Information and HPI Consulting Request Date of Consult: 11/25/17 Requested By: Dr. Baxter Reason for Consult: Acute on chronic hypercapnic respiratory failure History of Present Illness: Patient is an 82-year-old with history of severe oxygen-dependent COPD chronic hypoxic respiratory failure admitted with increasing shortness breath cough difficulty raising secretions. Mixed venous blood gas showed evidence of acute on chronic hypercapnic respiratory failure. Patient has difficulty raising secretions. Chest x-rays without evidence of pneumonia Allergies/Medications Allergies: Coded Allergies: STATINS (UNKNOWN PT DOES NOT REMEMBER 11/22/17) codeine (HEADACHES 05/24/17) Home Med List: Citalopram Hydrobromide (Citalopram HBr) 10 MG TABLET 1 TAB PO DAILY DEPRESSION (Reported) Levothyroxine Sodium (Levoxyl) 50 MCG TABLET 1 TAB PO DAILY THYROID (Reported ) Lorazepam 0.5 MG TABLET 1 TAB PO QHS SLEEP (Reported) Multivitamin (Multiple Vitamins) 1 EACH TABLET 1 TAB PO DAILY SUPPLEMENT ( Reported) Umeclidinium [place] (Incruse Ellipta) 62.5 MCG BLST.W.DEV 1 PUFF PO DAILY COPD (Reported) Review of Systems Review of Systems Constitutional: Denies: chills, fever. Cardiovascular: Denies: chest pain. Respiratory: Reports: cough, short of breath. Denies: hemoptysis, sputum production. GI: Reports: vomiting. Denies: abdominal pain, constipation, diarrhea, melena. Past History Travel History Traveled to [place] past 21 day No Medical History Blood Transfusion Hx: No Neurological: NONE EENT: NONE Cardiovascular: hypertension, hyperlipidemia Respiratory: COPD, WEARS 2L AT BASELINE Gastrointestinal: ERCP Hepatic: NONE Renal: NONE Musculoskeletal: NONE Psychiatric: anxiety Endocrine: hypothyroidism Blood Disorders: NONE Cancer(s): NON HODGKINS LYMPHOMA, MELANOMA, SALIVARY CARCINOMA BUSINESS INTERN/Reproductive: HYSTERECTOMY Surgical History Surgical History: cholecystectomy, CYBERKNIFE SURGERY SINUS SURGERY FOR CANCER Family History Relations & Conditions If Any: Relation not specified for: *No pertinent family history Psychosocial History Where Do You Live? Home Who Do You Live With? Sister Services at Home: None Primary Language: Estonian Smoking Status: Former Smoker Functional Ability ADLs Independent: dressing, eating, toileting, bathing. Ambulation: walker Exam & Diagnostic Data Last 24 Hrs of Vital Signs/I&O Vital Signs Date Time Temp Pulse Resp B/P B/P Pulse O2 O2 Flow FiO2 Mean Ox Delivery Rate 11/25 08 Room Air 11/25 0630 97.6 82 22 154/90 98 Nasal 2.0L Cannula 11/25 0000 Nasal 3.0L Cannula 11/24 2217 98.6 84 24 150/74 96 11/24 2151 96 Nasal 2.0L Cannula 11/24 1440 97.5 97 18 130/76 93 Nasal 2.0L Cannula 11/24 1332 99 Nasal 3.0L Cannula Intake & Output 11/25 1600 11/25 0800 11/25 0000 Intake Total 120 560 Output Total 450 500 Balance -330 60 Intake, Oral 120 560 Output, Urine 450 500 Patient 105 lb Weight Patient is chronically ill-appearing woman oxygen saturation 2 L 98% exam for chest shows decreased breath sounds are no wheezes cardiac exam shows a regular S1 and S2 abdomen is soft nontender and there is no edema Last 48 Hrs of Labs/Jorge A: Laboratory Tests 11/25/17 0520: Anion Gap 3 L, Estimated GFR > 60, BUN/Creatinine Ratio 30.0 H, CBC w Diff NO MAN DIFF REQ, RBC 3.52 L, MCV 93.9, MCH 30.3, MCHC 32.2 L, RDW 16.8 H, MPV 6.7 L, Gran % 86.8 H, Lymphocytes % 7.9 L, Monocytes % 5.3, Eosinophils % 0, Basophils % 0, Absolute Granulocytes 5.9, Absolute Lymphocytes 0.5 L, Absolute Monocytes 0.4, Absolute Eosinophils 0, Absolute Basophils 0 Assessment/Plan Impression/Plan: 82-year-old with chronic hypoxic respiratory failure admitted with exacerbation of COPD and found to have acute on chronic hypercapnic respiratory failure mixed venous blood gas associated with elevated bicarbonate. She reports difficulty mobilizing secretions. Recommendations: Assess arterial blood gas. Taper FiO2 with improved saturations. Trial of Mucinex and aggressive pulmonary toilet. If she continues to have difficulty nebulized Mucomyst can be employed. Evaluation of vomiting by primary care team. Continue outpatient bronchodilator regimen Consult Acknowledgment - Thank you for your consult request.
--- NOTE | 2017-11-25 13:44 | RADIOLOGY REPORT ---
EXAMINATION: XR MODIFIED BARIUM SWALLOW CLINICAL INFORMATION: Aspiration. COMPARISON: None. TECHNIQUE: A modified barium swallow was performed with speech pathologist in attendance. Pur?e, thin, bread, and cracker consistencies were given to the patient and the swallowing mechanism was observed fluoroscopically with several spot films taken using the last image hold feature. FLUOROSCOPY TIME: 2 minutes 14 seconds. FINDINGS: With all consistencies, the oropharyngeal phase of swallowing is abnormal with difficulty in oral bolus formation and posterior propagation of the oral bolus. Lingual pumping is noted. There is some pooling of contrast seen in the vallecula with the puree, bread and cracker consistencies. No significant pooling of contrast is seen with the liquid barium. With all consistencies, there is either undercoating of the epiglottis or transient silent penetration of contrast. No laryngeal or nasopharyngeal aspiration seen. IMPRESSION: 1. Abnormal oral phase of swallowing as discussed above. 2. Some pooling of contrast seen in the vallecula with all consistencies. 3. Speech pathologist assessment issued separately. 4. Silent penetration of contrast seen, most prominent with bread and cracker consistencies.
[2017-11-25 14:39] VITALS: BP 110/70
[2017-11-25 22:56] VITALS: BP 106/70
[2017-11-26 05:17] LABS: ABSOLUTE BASOPHIL COUNT 0 /CUMM (0.0-0.2); ABSOLUTE EOSINOPHIL COUNT 0 /CUMM (0.0-0.7); ABSOLUTE GRANULOCYTE CT 4.9 /CUMM (1.4-6.5); ABSOLUTE LYMPH COUNT 0.8 /CUMM (1.2-3.4); ABSOLUTE MONOCYTE COUNT 0.8 /CUMM (0.10-0.60); BASOPHIL % 0.1 % (0.0-2.0); EOSINOPHIL % 0.2 % (0-5); GRANULOCYTE % 75.7 % (42.2-75.2); HEMATOCRIT 32.1 % (37-47); MEAN CORPUSCULAR HGB 30.4 PG (27.0-31.0); MEAN CORPUSCULAR HGB CONC 32.3 G/DL (33.0-37.0); MEAN CORPUSCULAR VOLUME 94.1 FL (81.0-99.0); MEAN PLATELET VOLUME 6.5 FL (7.4-10.4); PLATELET COUNT 252 /CUMM (130-400); RBC DISTRIBUTION WIDTH 16.3 % (11.5-14.5); RED BLOOD CELL CT 3.41 /CUMM (4.20-5.40); WHITE BLOOD CELL COUNT 6.5 /CUMM (4.8-10.8)
[2017-11-26 06:40] VITALS: BP 140/76
--- NOTE | 2017-11-26 07:08 | PN- Housestaff ---
David MCKAY,[facility] 11/26/17 0707: Subjective Follow-up For: COPD Exacerbation Tele-Events Since Last Visit: off tele Subjective: Seen and examined. Slept well overnight but feels tired. States her breathing is good. Continues to feel cramping pain across her upper belly. Review of Systems Constitutional: Reports: no symptoms. Objective Last 24 Hrs of Vital Signs/I&O Vital Signs Date Time Temp Pulse Resp B/P B/P Pulse O2 O2 Flow FiO2 Mean Ox Delivery Rate 11/26 0800 Nasal 2.0L Cannula 11/26 0640 97.5 80 20 140/76 90 Nasal 1.5L Cannula 11/26 0000 Nasal 1.0L Cannula 11/25 2256 98.3 84 18 106/70 94 Nasal Cannula 11/25 2040 94 Nasal 1.0L Cannula 11/25 1439 98.5 96 20 110/70 91 Nasal 1.0L Cannula 11/25 1120 94 Nasal 1.0L Cannula Intake & Output 11/26 1600 11/26 0800 11/26 0000 Intake Total 120 240 Output Total 350 Balance 120 -110 Intake, Oral 120 240 Output, Urine 350 Patient 101 lb Weight Weight Bed scale Measurement Method Physical Exam General Appearance: Alert, Oriented X3, Cooperative, Mild Distress Skin: No Rashes, No Breakdown Skin Temp/Moisture Exam: Warm/Dry Sepsis Skin Exam (color): Normal for Ethnicity HEENT: Atraumatic Cardiovascular: Normal S1, Normal S2, No Murmurs Lungs: decreased breath sounds Abdomen: Soft, No Tenderness Neurological: Normal Speech Extremities: No Edema Last 24 Hrs of Lab/Jorge A Results Last 24 Hrs of Labs/Mics: Laboratory Tests 11/26/17 0500: CBC w Diff NO MAN DIFF REQ, RBC 3.41 L, MCV 94.1, MCH 30.4, MCHC 32.3 L, RDW 16.3 H, MPV 6.5 L, Gran % 75.7 H, Lymphocytes % 12.3 L, Monocytes % 11.7 H, Eosinophils % 0.2, Basophils % 0.1, Absolute Granulocytes 4.9, Absolute Lymphocytes 0.8 L, Absolute Monocytes 0.8 H, Absolute Eosinophils 0, Absolute Basophils 0 11/25/17 1047: pH 7.31 L, pCO2 76 *H, pO2 156 H, HCO3 38 H, ABG O2 Sat (Measured) 98.0, P-50 (Temp Corrected) N, Carboxyhemoglobin 0.4 L, O2 Concentration % 2L, Temperature 97.6, O2 Delivery Method N/C, Phlebotomy Draw Site RIGHT RADIAL Assessment/Plan Assessment: 80 yo F with PMHx of COPD on 1.5L O2 at home, non-hodgkins lymphoma s/p chemo and radiation therapy in 2016 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 Assessment: 1. Acute on chronic hypoxic respiratory failure ( O2 sats 63% on ED) most likely COPD exacerbation. 2. History of Hypothyroidism 3. History of non-Hodgkin's lymphoma Plan: * Continue oxygen supplementation to maintain target saturations >92%. Currently on 2 L of oxygen. * Will attempt taper down FiO2 to her baseline to decrease her CO2 retention. * Discontinue Solu-Medrol and Azithromycin after today * Prednisone 40mg from tomorrow. * TRC eval. Continue aggressive pulmonary toilet. * Swallow eval (MBS) yesterday showed silent penetration of contrast and abnormal oral phase of swallowing * CT Abd/Pelvis with IV contrast for assessing chronic mesenteric ischemia - pending . * GI prophylaxis with PPI * Continue citalopram 10 mg and levothyroxine 50 mcg. * Diet: Regular (mechanical soft and thin) * DVT prophylaxis: SC Lovenox * Code: DNR/DNI Problem List: 1. COPD exacerbation Pain Ratin Pain Location: none Pain Goal: Remain pain free Pain Plan: none Tomorrow's Labs & Rationales: CBC, BEP Adan Baxter 11/26/17 1257: Attending MD Review Statement Attending Statement Attending MD Statement: examined this patient, discuss w/resident/PA/COMMUNITY DIETITIAN, agreed w/resident/PA/COMMUNITY DIETITIAN, discussed with family, reviewed EMR data (avail), discussed with nursing, discussed with case mgmt, reviewed images, amended to note Attending Assessment/Plan: Patient c/o pain in abdomen after eating recurrent. O2 supplementation. Minimal use of accessory muscles. Feels less congested. Acute hypoxic resp failure secondary to copd exac- Taper steroids as per pulmonary, zithromax. Follow pulmonary. cont on TRC nebs. speech/swallow MBS with silent aspiration. Chest pain/GERD -negative cardiac enzymes. stress gastritis add PPI and monitor. abd pain: F/u ct abd/pelvis. Discontinue telemetry, discharge planning in next [address] scan negative. PT f/u for dc planning either str vs home pt. gi/dvt prophyalxis DNR/DNI.
--- NOTE | 2017-11-26 08:43 | PN- Pulmonary ---
Subjective HPI/Critical Care Issues: Patient is more comfortable less congested and short of breath Objective Current Medications: Current Medications Sig/Abhi Start time Last Medication Dose Route Stop Time Status Admin Acetaminophen 500 MG Q6P PRN 11/22 2345 AC 11/23 PO 0859 Albuterol Sulfate 3 ML Q4P PRN 11/22 2145 AC INH Aspirin 81 MG DAILY 11/22 1703 AC 11/26 PO 0752 Azithromycin 500 MG DAILY@1430 11/23 1430 AC 11/25 Sodium Chloride 250 ML IV 1437 Citalopram 10 MG DAILY 11/23 0900 AC 11/26 Hydrobromide PO 0752 Enoxaparin Sodium 40 MG DAILY 11/23 09 AC 11/26 SC 0752 Guaifenesin 600 MG Q12 11/25 1025 AC 11/26 PO 0752 Levothyroxine Sodium 0.05 MG DAILY AC 11/23 07 AC 11/26 PO 0626 Lorazepam 0.5 MG AT BEDTIME 11/22 2100 AC 11/25 PO 11/29 Methylprednisolone 40 MG DAILY 11/26 09 AC 11/26 IV 0752 Methylprednisolone 40 MG Q12 11/24 2100 DC 11/25 IV 1000 Multivitamins 1 TAB DAILY 11/23 09 AC 11/26 Therapeutic PO 0752 Omeprazole 40 MG DAILY AC 11/25 07 AC 11/26 PO 0626 Vital Signs & I&O Last 24 Hrs of Vitals and I&O: Vital Signs Date Time Temp Pulse Resp B/P B/P Pulse O2 O2 Flow FiO2 Mean Ox Delivery Rate 11/26 0800 Nasal 2.0L Cannula 11/26 0640 97.5 80 20 140/76 90 Nasal 1.5L Cannula 11/26 0000 Nasal 1.0L Cannula 11/25 2256 98.3 84 18 106/70 94 Nasal Cannula 11/25 2040 94 Nasal 1.0L Cannula 11/25 1439 98.5 96 20 110/70 91 Nasal 1.0L Cannula 11/25 1120 94 Nasal 1.0L Cannula Intake & Output 11/26 1600 11/26 0800 11/26 0000 Intake Total 120 240 Output Total 350 Balance 120 -110 Intake, Oral 120 240 Output, Urine 350 Patient 101 lb Weight Weight Bed scale Measurement Method Since saturation 2 L 90% exam for chest shows diminished breath sounds there are no rhonchi or wheezes cardiac exam shows regular S1 and S2 without murmurs Impression/Plan Impression/Plan Impression/Plan: 82-year-old with severe chronic hypoxic respiratory failure chronic hypercapnic respiratory failure appears improved with less congestion. Modified barium swallow suggests respiratory aspiration. Arterial blood gases indicate compensated hypercapnic respiratory failure. Recommendations: DC IV Solu-Medrol begin oral prednisone. Continue pulmonary toilet. Aspiration precautions. Physical therapy evaluation for mobilization and ambulation.
[2017-11-26 14:33] VITALS: BP 132/70
--- NOTE | 2017-11-26 16:17 | CT SCAN REPORT ---
EXAMINATION: CT LIMITED OR FOLLOWUP CLINICAL INFORMATION: Postprandial ischemia. COMPARISON: None. TECHNIQUE: A single rubber mold maker view of the abdomen and pelvis is obtained. FINDINGS AND IMPRESSION: The rubber mold maker view demonstrates a moderate amount of dense barium in the right colon. For this reason, it is decided that the CTA should be delayed until this barium can be evacuated.
[2017-11-26 20:32] VITALS: BP 122/80
--- NOTE | 2017-11-26 21:07 | RADIOLOGY REPORT ---
EXAMINATION: CHEST 1 VIEW CLINICAL INFORMATION: COPD. COMPARISON: 11/22/2017. TECHNIQUE: An AP view of the chest is provided. FINDINGS: The cardiac silhouette is stable. A right-sided port is in place. There are small bilateral pleural effusions with retrocardiac airspace disease. There is stable biapical scarring. The lungs are hyperinflated. The osseous structures are stable. IMPRESSION: Small bilateral pleural effusions with retrocardiac airspace disease. Stable chronic upper lobe changes. Recommendation is for a followup chest series to be obtained following treatment and/or resolution of symptoms to assure resolution of this appearance.
[2017-11-27 06:21] LABS: ABSOLUTE BASOPHIL COUNT 0 /CUMM (0.0-0.2); ABSOLUTE EOSINOPHIL COUNT 0.1 /CUMM (0.0-0.7); ABSOLUTE GRANULOCYTE CT 4.5 /CUMM (1.4-6.5); ABSOLUTE MONOCYTE COUNT 0.7 /CUMM (0.10-0.60); BASOPHIL % 0.7 % (0.0-2.0); EOSINOPHIL % 2.1 % (0-5); GRANULOCYTE % 70.6 % (42.2-75.2); HEMATOCRIT 32.7 % (37-47); MEAN CORPUSCULAR HGB 30.4 PG (27.0-31.0); MEAN CORPUSCULAR HGB CONC 32.8 G/DL (33.0-37.0); MEAN CORPUSCULAR VOLUME 92.7 FL (81.0-99.0); MEAN PLATELET VOLUME 6.5 FL (7.4-10.4); PLATELET COUNT 253 /CUMM (130-400); RBC DISTRIBUTION WIDTH 16.5 % (11.5-14.5); RED BLOOD CELL CT 3.53 /CUMM (4.20-5.40); WHITE BLOOD CELL COUNT 6.3 /CUMM (4.8-10.8)
[2017-11-27 06:46] VITALS: BP 116/76
--- NOTE | 2017-11-27 08:42 | PN- Pulmonary ---
Subjective HPI/Critical Care Issues: Patient's respiratory status unchanged she continues to complain of abdominal pain nurses report she refuses to get out of bed complaining of weakness. Note her bicarbonate has increased to 45 suggesting worsening hypercarbia. Objective Current Medications: Current Medications Sig/Abhi Start time Last Medication Dose Route Stop Time Status Admin Acetaminophen 500 MG Q6P PRN 11/22 2345 AC 11/27 PO 0254 Albuterol Sulfate 3 ML Q4P PRN 11/22 2145 AC INH Aspirin 81 MG DAILY 11/22 1703 AC 11/26 PO 0752 Azithromycin 500 MG DAILY@1430 11/23 1430 DC 11/25 Sodium Chloride 250 ML IV 1437 Citalopram 10 MG DAILY 11/23 09 11/26 Hydrobromide PO 075 Docusate Sodium 100 MG DAILY 11/26 09 11/26 PO 1120 Enoxaparin Sodium 40 MG DAILY 11/23 09 AC 11/26 SC 0752 Guaifenesin 600 MG Q12 11/25 1025 AC 11/26 PO 202 Levothyroxine Sodium 0.05 MG DAILY AC 11/23 0700 11/27 PO 0557 Lorazepam 0.5 MG AT BEDTIME 11/22 2100 AC 11/26 PO 11/29 Methylprednisolone 40 MG DAILY 11/26 0900 NM 11/26 IV 0752 Multivitamins 1 TAB DAILY 11/23 09 AC 11/26 Therapeutic PO 0752 Omeprazole 40 MG DAILY AC 11/25 0700 AC 11/27 PO 0557 Polyethylene Glycol 17 GM DAILY 11/26 09 11/26 PO 1120 Prednisone 40 MG DAILY 11/27 0900 AC PO Senna 187 MG DAILY 11/26 916 11/26 PO 1120 Vital Signs & I&O Last 24 Hrs of Vitals and I&O: Vital Signs Date Time Temp Pulse Resp B/P B/P Pulse O2 O2 Flow FiO2 Mean Ox Delivery Rate 11/27 645 97.6 82 20 116/76 98 11/27 0000 Nasal 2.0L Cannula 11/26 2229 96 Nasal 3.0L Cannula 11/27 2031 98.2 85 20 122/80 90 Nasal 6.0L Cannula 11/26 2014 86 Nasal 3.0L Cannula 11/26 2009 Nasal 6.0L Cannula 11/26 1542 Nasal 1.0L Cannula 11/26 1534 Nasal 1.0L Cannula 11/26 1433 97.5 76 18 132/70 92 Nasal Cannula 11/26 1038 94 Nasal 1.0L Cannula Intake & Output 11/27 1600 11/27 0800 11/27 0000 Intake Total 480 520 Output Total 300 350 Balance 180 170 Intake, Oral 480 520 Output, Urine 300 350 Patient 95 lb 7 oz Weight Since saturation 2 L 98% exam for chest shows markedly diminished breath sounds there are no wheezes or crackles cardiac exam shows regular S1 and S2 without murmurs Impression/Plan Impression/Plan Impression/Plan: 82-year-old woman with end-stage COPD chronic hypoxic respiratory failure chronic hypercapnic respiratory failure. Increasing bicarbonate of concern for possible mild volume contraction and worsening hypercarbia. Recommendations: Repeat arterial blood gas. If hypercarbia is worse consider BiPAP 14/6 respiratory rate of 24 physical therapy evaluation for probable need short-term rehabilitation. Patient should be mobilized out of bed to prevent further atelectasis. Maintain potassium in normal level. if The patient is becoming more alkalemic addition of Diamox would be appropriate
--- NOTE | 2017-11-27 09:15 | PN- Housestaff ---
See Addendum Subjective Follow-up For: COPD exacerbation Subjective: Patient seen and examined. She notes continued left-sided abdominal pain is worse on palpation. She also notes mild wheezing and is requiring more than her baseline 2 L on ambulation. She denies any cough. The patient was transferred to [facility] from telemetry overnight. She is not on BiPAP but her most recent ABG does show respiratory acidosis and a high oxygen blood content. Review of Systems Constitutional: Reports: weakness. EENTM: Reports: no symptoms. Cardiovascular: Reports: no symptoms. Respiratory: Reports: short of breath. Gastrointestinal: Reports: abdominal pain. Genitourinary: Reports: no symptoms. Musculoskeletal: Reports: no symptoms. Skin: Reports: no symptoms. Neurological/Psychological: Reports: no symptoms. Hematologic/Endocrine: Reports: no symptoms. Objective Last 24 Hrs of Vital Signs/I&O Vital Signs Date Time Temp Pulse Resp B/P B/P Pulse O2 O2 Flow FiO2 Mean Ox Delivery Rate 11/27 1429 97.6 89 20 105/59 95 Nasal 1.5L Cannula 11/27 1228 Nasal 3.0L Cannula 11/27 0800 93 Nasal 2.0L Cannula 11/27 0646 97.6 82 20 116/76 98 11/27 0000 Nasal 2.0L Cannula 11/26 2230 96 Nasal 3.0L Cannula 11/26 2032 98.2 85 20 122/80 90 Nasal 6.0L Cannula 11/26 2014 86 Nasal 3.0L Cannula 11/26 2009 Nasal 6.0L Cannula Intake & Output 11/27 1600 11/27 0800 11/27 0000 Intake Total 600 480 520 Output Total 450 300 350 Balance 150 180 170 Intake, Oral 600 480 520 Number 1 Bowel Movements Output, Urine 450 300 350 Patient 101 lb 95 lb 7 oz Weight Physical Exam General Appearance: Alert, Oriented X3, Cooperative, No Acute Distress Skin: No Rashes, No Breakdown, No Significant Lesion Skin Temp/Moisture Exam: Warm/Dry Sepsis Skin Exam (color): Normal for Ethnicity HEENT: Atraumatic, PERRLA, EOMI, Mucous Membr. moist/pink Cardiovascular: Regular Rate, Normal S1, Normal S2 Lungs: Clear to Auscultation, Normal Air Movement Abdomen: Normal Bowel Sounds, Soft, No Hepatospenomegaly, patient has smallmiddle hernia in the epigastric region, noted history of hysterectomy. No other abdominal surgeries. Neurological: Normal Speech Extremities: No Clubbing, No Cyanosis, No Edema, Normal Pulses, No Tenderness/ Swelling Vascular: Normal Pulses, Pulses Symmetrical Sepsis Peripheral Pulse Location: Radial Sepsis Peripheral Pulse Exam: Normal Current Medications: Current Medications Sig/Abhi Start time Last Medication Dose Route Stop Time Status Admin Acetaminophen 500 MG Q6P PRN 11/22 2345 AC 11/27 PO 0945 Albuterol Sulfate 3 ML Q4P PRN 11/22 2145 AC INH Aspirin 81 MG DAILY 11/22 1703 AC 11/27 PO 0935 Citalopram 10 MG DAILY 11/23 09 AC 11/27 Hydrobromide PO 0935 Docusate Sodium 100 MG DAILY 11/26 09 AC 11/27 PO 0936 Enoxaparin Sodium 40 MG DAILY 11/23 09 AC 11/27 SC 0936 Guaifenesin 600 MG Q12 11/25 1025 AC 11/27 PO 0936 Levothyroxine Sodium 0.05 MG DAILY AC 11/23 0700 AC 11/27 PO 0557 Lorazepam 0.5 MG AT BEDTIME 11/22 2100 AC 11/26 PO 11/29 Multivitamins 1 TAB DAILY 11/23 09 AC 11/27 Therapeutic PO 0936 Omeprazole 40 MG DAILY AC 11/25 0700 AC 11/27 PO 0557 Polyethylene Glycol 17 GM DAILY 11/26 917 AC 11/27 PO 0936 Prednisone 40 MG DAILY 11/27 0900 AC 11/27 PO 0936 Senna 187 MG DAILY 11/26 09 AC 11/27 PO 0936 Last 24 Hrs of Lab/Jorge A Results Last 24 Hrs of Labs/Mics: Laboratory Tests 11/27/17 1215: pH 7.36, pCO2 70 *H, pO2 145 H, HCO3 39 H, ABG O2 Sat (Measured) 99.0, P-50 ( Temp Corrected) N, Carboxyhemoglobin 1.0 L, O2 Concentration % 2L, O2 Delivery Method N/C, Phlebotomy Draw Site RIGHT BRACHIAL 11/27/17 0600: Anion Gap 2 L, Estimated GFR > 60, BUN/Creatinine Ratio 34.0 H, CBC w Diff NO MAN DIFF REQ, RBC 3.53 L, MCV 92.7, MCH 30.4, MCHC 32.8 L, RDW 16.5 H, MPV 6.5 L, Gran % 70.6, Lymphocytes % 15.8 L, Monocytes % 10.8 H, Eosinophils % 2.1, Basophils % 0.7, Absolute Granulocytes 4.5, Absolute Lymphocytes 1.0 L, Absolute Monocytes 0.7 H, Absolute Eosinophils 0.1, Absolute Basophils 0 Microbiology 11/27 1445 URINE ROUT: Urine Culture - RECD Assessment/Plan Assessment: 80 yo F with PMHx of COPD on 1.5L O2 at home, non-hodgkins lymphoma s/p chemo and radiation therapy in 2016 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 She was also found to have left sided abdominal pain that is worse on palpation. There is also question of aspiration as the patient was having difficulty swallowing but did pass a swallow evaluation. Assessment: 1. Acute on chronic hypoxic respiratory failure ( O2 sats 63% on ED) most likely COPD exacerbation. Patient had ABG done a few days ago which showed respiratory acidosis with a pH of 7.31. She is not on BiPAP at home. She is being seen by Dr. Esparza, film process operator. Her respiratory rate this morning is 20 with 93% oxygen saturation on 2 L of oxygen which is her home dose. However, on ambulation her sats dropped to 70s. We did a repeat ABG which showed pH 7.36, carbon dioxide 70, pO2 145 and oxygen saturation 99%. Patient will most likely need BiPAP and will need a sleep study outpatient to evaluate for this. We will not give Diamox as his pH is now in the normal range. As per pulmonary we will titrate O2 as her oxygen is too high. The issue is when the patient ambulates. For this she most likely will need the BiPAP. 2. History of Hypothyroidism 3. History of non-Hodgkin's lymphoma Plan: * Continue oxygen supplementation to maintain target saturations >92%. Currently on 2 L of oxygen. * Will attempt taper down FiO2 to her baseline to decrease her CO2 retention. * Discontinued Solu-Medrol and Azithromycin * Prednisone 40mg from tomorrow. * TRC eval. Continue aggressive pulmonary toilet. * Swallow eval (MBS) yesterday showed silent penetration of contrast and abnormal oral phase of swallowing, but she did pass a swallow exam and is now on normal diet mechanical soft * Pt was noted by nursing to have shown questionable increased urination today, UA previously showed evidence of UTI. Do not treat but we will draw a urine culture for now. * CT Abd/Pelvis with IV contrast for assessing chronic mesenteric ischemia was not able to be done secondary to barium contrast remaining in esophagus. We can follow up with repeat study as per radiology or call for vascular consult. * GI prophylaxis with PPI * Continue citalopram 10 mg and levothyroxine 50 mcg. * Diet: Regular (mechanical soft and thin) * DVT prophylaxis: SC Lovenox * Code: DNR/DNI Problem List: 1. COPD exacerbation 2. Abdominal pain Pain Ratin Pain Location: left abdomen Pain Goal: Pain 4 or less Pain Plan: prn Tomorrow's Labs & Rationales: cbc bep;
[2017-11-27] MEDS ORDERED: PREDNISONE10 M2 PO (09:54)
[2017-11-27] MEDS ORDERED: PROAIR HFA8.5 GM INH (09:56)
--- NOTE | 2017-11-27 12:01 | Discharge Summary ---
Visit Information Visit Dates Admission Date: 11/22/17 Discharge Date: 11/28/17 Hospital Course Course Attending Physician: Leticia Travis MD Primary Care Physician: Beena Mcdaniel APRN Hospital Course: , PMHx of COPD on 1.5L O2 at home, non-hodgkins lymphoma s/p chemo and radiation therapy in 2016, lung nodule, salivary carcinoma, anxiety and hypothyroidism, who was brought in for evaluation of dyspnea. The patient was found to be in acute on chronic hypoxic respiratory failure with oxygen saturation down to 63% and mixed VBG showed evidence of acute on chronic hypercapnic respiratory failure. CXR was negative for pneumonia. The patient was admitted because of acute on chronic hypoxic hypercarbic respiratory failure which most likely secondary to COPD exacerbation. She was started on oxygen NC, IV steroid, azithromycin, aspiration precaution and pulmonary toilet. Modified barium swallow was done and speech therapy recommended thin liquids ground diet. After she became stable she was transferred to [facility] and steroid was switched to oral prednisone taper. She will be instructed to follow with locket maker within 1 week of discharge. During that admission she started to complain of postprandial epigastric pain, it's possibly secondary to gastritis or peptic ulcer given the recent steroid. She was started on PPI. If pain continued she may benefit from CTA to rule out chronic mesenteric ischemia possibly as an outpatient given that she still has contrast from barium swallow, it is decided that the CTA should be delayed until this barium can be evacuated. We continued the rest of home medications include citalopram 10 mg and levothyroxine 50 mcg. Allergies: Coded Allergies: STATINS (UNKNOWN PT DOES NOT REMEMBER 11/22/17) codeine (HEADACHES 05/24/17) Disposition Summary Disposition Principal Diagnosis: COPD exacerbation Additional Diagnosis: Epigastric pain possibly secondary to peptic ulcer versus gastritis Discharge Disposition: SNF Discharge Instructions General Discharge Information Code Status: Do Not Resucitate/Intubat Patient's Diet: Thin liquid ground solid Patient's Activity: As tolerated Follow-Up Instructions/Appts: Please follow up with primary care doctor within 1-2 weeks Please follow up with locket maker within 1 week Medications at Discharge Discharge Medications: Continue taking these medications: Lorazepam (Lorazepam) 0.5 MG TABLET 1 Tablet ORAL TAKE AT BEDTIME Comments: Last Taken: 11/27/17 Time: 9:04PM Levothyroxine Sodium (Levoxyl) 50 MCG TABLET 1 Tablet ORAL DAILY Comments: Last Taken: 11/28/17 Time: 5:49AM Multivitamin (Multiple Vitamins) 1 EACH TABLET 1 Tablet ORAL DAILY Comments: Last Taken:11/28/17 Time:8:31 Umeclidinium [place] (Incruse Ellipta) 62.5 MCG BLST.W.DEV 1 PUFF ORAL DAILY Qty = 90 Citalopram Hydrobromide (Citalopram HBr) 10 MG TABLET 1 Tablet ORAL DAILY Comments: Last Taken: 11/28/17 Time: 8:31AM Start taking the following new medications: Prednisone (Prednisone) 10 MG TABLET 1 Tablet ORAL DAILY Qty = 12 No Refills Comments: Please take 3 tablets of Prednisone 10mg on 11/29/17 and 11/30/17 Then take 2 tablets of Prednisone 10mg on 12/01/17 and 12/02/17 Then take 1 tablet of Prednisone 10mg on 12/03/17 and 12/05/17 Omeprazole (Omeprazole) 20 MG CAPSULE.DR 40 Milligram ORAL DAILY BEFORE BREAKFAST Qty = 30 No Refills Aspirin (Aspirin*) 81 MG TAB.CHEW 81 Milligram ORAL DAILY Qty = 30 No Refills Docusate Sodium (Docusate Sodium) 100 MG CAPSULE 100 Milligram ORAL DAILY Qty = 14 No Refills Polyethylene Glycol 3350 (Miralax) 17 GRAM/DOSE POWDER 1 Units ORAL DAILY Qty = 14 No Refills Albuterol Sulfate (Proair Hfa) 90 MCG HFA.AER.AD 2 Puff Inhale through mouth EVERY 4-6 HOURS NEEDED as needed for Shortness of Breath Qty = 1 No Refills Pravastatin Sodium (Pravachol) 20 MG TABLET 1 Tablet ORAL DAILY Qty = 30 No Refills Copies To: David MCKAY,Omar Urrutia; Beena Mcdaniel APRN
--- NOTE | 2017-11-27 12:52 | PN- Att Addend ---
Attending Addendum Attending Brief Note Patient seen and examined. Plan of care discussed with the medical team and the patient. Available lab work and radiology test reports were reviewed. Patient was transferred from telemetry. This morning she sitting in chair. She appears weak and somewhat lethargic. He denies any chest pain or recent fevers or chills. Exam: General: Patient awake but appears lethargic and oriented without any distress CVS: S1 plus S2 without any murmur or gallops Chest: Few scattered crepitation without any wheeze. There is no respiratory distress. 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 * History of Hypothyroidism * History of non-Hodgkin's lymphoma * Increased CO2 level depression includes metabolic alkalosis likely secondary to CO2 retention Plan * Continue TRC nebulizer and oxygen * Taper prednisone over next 7-10 days * dose of Diamox 250 mg oral * Consider BiPAP for increased CO2 * Keep oxygen at 2 L to avoid CO2 narcosis * Await short-term rehabilitation placement Current Medications Sig/Abhi Start time Last Medication Dose Route Stop Time Status Admin Acetaminophen 500 MG Q6P PRN 11/22 2345 AC 11/27 PO 0945 Albuterol Sulfate 3 ML Q4P PRN 11/22 2145 AC INH Aspirin 81 MG DAILY 11/22 1703 AC 11/27 PO 0935 Citalopram 10 MG DAILY 11/23 899 AC 11/27 Hydrobromide PO 0935 Docusate Sodium 100 MG DAILY 11/26 917 AC 11/27 PO 0936 Enoxaparin Sodium 40 MG DAILY 11/23 899 AC 11/27 SC 0936 Guaifenesin 600 MG Q12 11/25 1025 AC 11/27 PO 0936 Levothyroxine Sodium 0.05 MG DAILY AC 11/23 07 AC 11/27 PO 0557 Lorazepam 0.5 MG AT BEDTIME 11/22 2100 AC 11/26 PO 11/29 Multivitamins 1 TAB DAILY 11/23 899 AC 11/27 Therapeutic PO 0936 Omeprazole 40 MG DAILY AC 11/25 07 AC 11/27 PO 0557 Polyethylene Glycol 17 GM DAILY 11/26 917 AC 11/27 PO 36 Prednisone 40 MG DAILY 11/27 899 AC 11/27 PO 36 Senna 187 MG DAILY 11/26 916 11/27 PO 935 Laboratory Tests 11/27/17 1215: pH 7.36, pCO2 70 *H, pO2 145 H, HCO3 39 H, ABG O2 Sat (Measured) 99.0, P-50 ( Temp Corrected) N, Carboxyhemoglobin 1.0 L, O2 Concentration % 2L, O2 Delivery Method N/C, Phlebotomy Draw Site RIGHT BRACHIAL 11/27/17 0600: Anion Gap 2 L, Estimated GFR > 60, BUN/Creatinine Ratio 34.0 H, CBC w Diff NO MAN DIFF REQ, RBC 3.53 L, MCV 92.7, MCH 30.4, MCHC 32.8 L, RDW 16.5 H, MPV 6.5 L, Gran % 70.6, Lymphocytes % 15.8 L, Monocytes % 10.8 H, Eosinophils % 2.1, Basophils % 0.7, Absolute Granulocytes 4.5, Absolute Lymphocytes 1.0 L, Absolute Monocytes 0.7 H, Absolute Eosinophils 0.1, Absolute Basophils 0 11/26/17 0500: CBC w Diff NO MAN DIFF REQ, RBC 3.41 L, MCV 94.1, MCH 30.4, MCHC 32.3 L, RDW 16.3 H, MPV 6.5 L, Gran % 75.7 H, Lymphocytes % 12.3 L, Monocytes % 11.7 H, Eosinophils % 0.2, Basophils % 0.1, Absolute Granulocytes 4.9, Absolute Lymphocytes 0.8 L, Absolute Monocytes 0.8 H, Absolute Eosinophils 0, Absolute Basophils 0 11/25/17 1047: pH 7.31 L, pCO2 76 *H, pO2 156 H, HCO3 38 H, ABG O2 Sat (Measured) 98.0, P-50 (Temp Corrected) N, Carboxyhemoglobin 0.4 L, O2 Concentration % 2L, Temperature 97.6, O2 Delivery Method N/C, Phlebotomy Draw Site RIGHT RADIAL 11/25/17 0520: Anion Gap 3 L, Estimated GFR > 60, BUN/Creatinine Ratio 30.0 H, Total Bilirubin 0.4, Direct Bilirubin 0.2, AST 19, ALT 25, Alkaline Phosphatase 59, Total Protein 5.5 L, Albumin 3.2 L, CBC w Diff NO MAN DIFF REQ, RBC 3.52 L, MCV 93.9, MCH 30.3, MCHC 32.2 L, RDW 16.8 H, MPV 6.7 L, Gran % 86.8 H, Lymphocytes % 7.9 L, Monocytes % 5.3, Eosinophils % 0, Basophils % 0, Absolute Granulocytes 5.9, Absolute Lymphocytes 0.5 L, Absolute Monocytes 0.4, Absolute Eosinophils 0, Absolute Basophils 0 Vital Signs Date Time Temp Pulse Resp B/P B/P Pulse O2 O2 Flow FiO2 Mean Ox Delivery Rate 11/27 1228 Nasal 3.0L Cannula 11/27 0800 93 Nasal 2.0L Cannula 11/27 0646 97.6 82 20 116/76 98 11/27 0000 Nasal 2.0L Cannula 11/26 2230 96 Nasal 3.0L Cannula 11/262 98.2 85 20 122/80 90 Nasal 6.0L Cannula 11/26 2014 86 Nasal 3.0L Cannula 11/26 2009 Nasal 6.0L Cannula 11/26 1543 Nasal 1.0L Cannula 11/26 1534 Nasal 1.0L Cannula 11/26 1433 97.5 76 18 132/70 92 Nasal Cannula Intake & Output 11/27 1600 11/27 0800 11/27 0000 Intake Total 480 520 Output Total 300 350 Balance 180 170 Intake, Oral 480 520 Output, Urine 300 350 Patient 95 lb 7 oz Weight
[2017-11-27 14:29] VITALS: BP 105/59
[2017-11-27 21:40] VITALS: BP 140/88
[2017-11-28 05:39] VITALS: BP 138/82
--- NOTE | 2017-11-28 07:48 | PN- Housestaff ---
Subjective Follow-up For: copd exacerbation Subjective: Patient was noted by nurse to have one minute of dry heaving. she has successfully been titrated down from 3 L to 1 L since yesterday at 2 PM with oxygen saturations from 91-97%. To have swallowing difficulties and today we will call swallow to check her prior to her being discharged. Patient notes right sided abdominal pain this time, yesterday was left-sided abdominal pain. Patient denies any other symptoms. Review of Systems Constitutional: Reports: weakness. EENTM: Reports: no symptoms. Cardiovascular: Reports: no symptoms. Respiratory: Reports: no symptoms. Gastrointestinal: Reports: see HPI, abdominal pain. Genitourinary: Reports: no symptoms. Musculoskeletal: Reports: no symptoms. Skin: Reports: no symptoms. Neurological/Psychological: Reports: no symptoms. Objective Last 24 Hrs of Vital Signs/I&O Vital Signs Date Time Temp Pulse Resp B/P B/P Pulse O2 O2 Flow FiO2 Mean Ox Delivery Rate 11/28 1526 97.8 85 20 138/82 11/28 1104 93 Nasal 1.5L Cannula 11/28 0800 91 Nasal 1.0L Cannula 11/28 0539 97.8 85 20 138/82 91 Nasal 1.5L Cannula 11/28 0000 Nasal 1.0L Cannula 11/27 2140 97.5 92 20 140/88 92 Nasal 1.5L Cannula 11/27 1940 97 Nasal 1.5L Cannula Intake & Output 11/28 1600 11/28 0800 11/28 0000 Intake Total 150 300 Output Total 200 500 650 Balance -50 -500 -350 Intake, Oral 150 300 Output, Urine 200 500 650 Patient 98 lb 6 oz 100 lb Weight Weight Bed scale Measurement Method Physical Exam General Appearance: Alert, Oriented X3, Cooperative, No Acute Distress Skin: No Rashes, No Breakdown, No Significant Lesion Skin Temp/Moisture Exam: Warm/Dry Sepsis Skin Exam (color): Normal for Ethnicity HEENT: Atraumatic, EOMI, Mucous Membr. moist/pink Cardiovascular: Regular Rate, Normal S1, Normal S2, No Murmurs Lungs: Clear to Auscultation, Normal Air Movement Abdomen: Normal Bowel Sounds, Soft, No Tenderness, No Hepatospenomegaly, No Masses Neurological: Normal Speech Extremities: No Clubbing, No Cyanosis, No Edema, Normal Pulses Vascular: Normal Pulses Current Medications: Current Medications Sig/Abhi Start time Last Medication Dose Route Stop Time Status Admin Acetaminophen 500 MG Q6P PRN 11/22 2345 AC 11/27 PO 0945 Albuterol Sulfate 3 ML Q4P PRN 11/22 2145 AC INH Aspirin 81 MG DAILY 11/22 1703 AC 11/28 PO 0831 Atorvastatin Calcium 20 MG 1700 11/28 1115 CAN PO Citalopram 10 MG DAILY 11/23 09 AC 11/28 Hydrobromide PO 0831 Docusate Sodium 100 MG DAILY 11/26 09 AC 11/28 PO 0831 Enoxaparin Sodium 40 MG DAILY 11/23 09 AC 11/28 SC 0831 Guaifenesin 600 MG Q12 11/25 1025 AC 11/28 PO 0831 Levothyroxine Sodium 0.05 MG DAILY AC 11/23 0700 AC 11/28 PO 0549 Lorazepam 0.5 MG AT BEDTIME 11/22 2100 AC 11/27 PO 11/29 Multivitamins 1 TAB DAILY 11/23 09 AC 11/28 Therapeutic PO 0831 Omeprazole 40 MG DAILY AC 11/25 0700 AC 11/28 PO 0549 Polyethylene Glycol 17 GM DAILY 11/26 09 AC 11/28 PO 0831 Prednisone 40 MG DAILY 11/27 09 AC 11/28 PO 0831 Senna 187 MG DAILY 11/26 09 AC 11/28 PO 0831 Last 24 Hrs of Lab/Jorge A Results Last 24 Hrs of Labs/Mics: Laboratory Tests 11/28/17 1201: Anion Gap 7, Estimated GFR > 60, BUN/Creatinine Ratio 34.0 H Assessment/Plan Assessment: 80 yo F with PMHx of COPD on 1.5L O2 at home, non-hodgkins lymphoma s/p chemo and radiation therapy in 2016 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 She was also found to have left sided abdominal pain that is worse on palpation. There is also question of aspiration as the patient was having difficulty swallowing but did pass a swallow evaluation. Assessment: 1. Acute on chronic hypoxic respiratory failure ( O2 sats 63% on ED) most likely COPD exacerbation. Patient had ABG done a few days ago which showed respiratory acidosis with a pH of 7.31. She is not on BiPAP at home. She is being seen by Dr. Esparza, window maker. Her respiratory rate this morning is 20 with 93% oxygen saturation on 2 L of oxygen which is her home dose. However, on ambulation her sats dropped to 70s. We did a repeat ABG which showed pH 7.36, carbon dioxide 70, pO2 145 and oxygen saturation 99%. Patient will most likely need BiPAP and will need a sleep study outpatient to evaluate for this. We will not give Diamox as his pH is now in the normal range. As per pulmonary we will titrate O2 as her oxygen is too high. The issue is when the patient ambulates. For this she most likely will need the BiPAP. 2. History of Hypothyroidism 3. History of non-Hodgkin's lymphoma 4. Issues with swallowing 5. Chronic abdominal pain Plan: * Continue oxygen supplementation to maintain target saturations >90. Patient has been successfully titrated down on her oxygen as her ABG did show a very high by mouth 2. The patient continues to have trapping of carbon dioxide and will likely require BiPAP. We will refer her to window maker for sleep study for BiPAP. * We have given the patient a prednisone taper for 7 days. * TRC eval. Continue aggressive pulmonary toilet. * Swallow eval (MBS) yesterday showed silent penetration of contrast and abnormal oral phase of swallowing, but she did pass a swallow exam and is now on normal diet mechanical soft. The patient notes continued issues with swallowing so we had speech and swallow return. They noted a thickened oral phase dysphagia and recommended follow-up with gastroenterology for evaluation of the esophagus. * Pt was noted by nursing to have shown questionable increased urination today, UA previously showed evidence of UTI. Urine culture negative. * CT Abd/Pelvis with IV contrast for assessing chronic mesenteric ischemia was not able to be done secondary to barium contrast remaining in the gut today. We will defer to outpatient and recommend follow-up with gastroenterology, Dr. Ohara for evaluation. Patient does have history of atherosclerotic disease so we will start patient on pravastatin 20 mg as she was noted to have myalgias on simvastatin. * GI prophylaxis with PPI * Continue citalopram 10 mg and levothyroxine 50 mcg. * Diet: Regular mechanical soft and thin * DVT prophylaxis: SC Lovenox * Code: DNR/DNI Problem List: 1. Chronic abdominal pain 2. Oral phase dysphagia 3. Abdominal pain 4. COPD exacerbation Pain Ratin Pain Location: Right Sided abdominal pain Pain Goal: Pain 4 or less Pain Plan: When necessary Tomorrow's Labs & Rationales: Patient is to be discharged
[2017-11-28] MEDS ORDERED: OMEPRAZOLE20 M2 PO (07:52)
--- NOTE | 2017-11-28 09:06 | PN- Pulmonary ---
Subjective HPI/Critical Care Issues: Shortness of breath is improved. Awaiting short-term rehabilitation Objective Current Medications: Current Medications Sig/Abhi Start time Last Medication Dose Route Stop Time Status Admin Acetaminophen 500 MG Q6P PRN 11/22 2345 AC 11/27 PO 0945 Albuterol Sulfate 3 ML Q4P PRN 11/225 AC INH Aspirin 81 MG DAILY 11/22 1703 AC 11/28 PO 0831 Citalopram 10 MG DAILY 11/23 09 AC 11/28 Hydrobromide PO 0831 Docusate Sodium 100 MG DAILY 11/26 09 AC 11/28 PO 0831 Enoxaparin Sodium 40 MG DAILY 11/23 09 AC 11/28 SC 0831 Guaifenesin 600 MG Q12 11/25 1025 AC 11/28 PO 0831 Levothyroxine Sodium 0.05 MG DAILY AC 11/23 07 AC 11/28 PO 0549 Lorazepam 0.5 MG AT BEDTIME 11/22 2100 AC 11/27 PO 11/29 Multivitamins 1 TAB DAILY 11/23 09 11/28 Therapeutic PO 0831 Omeprazole 40 MG DAILY AC 11/25 07 AC 11/28 PO 0549 Polyethylene Glycol 17 GM DAILY 11/26 09 11/28 PO 0831 Prednisone 40 MG DAILY 11/27 09 11/28 PO 0831 Senna 187 MG DAILY 11/26 09 11/28 PO 0831 Vital Signs & I&O Last 24 Hrs of Vitals and I&O: Vital Signs Date Time Temp Pulse Resp B/P B/P Pulse O2 O2 Flow FiO2 Mean Ox Delivery Rate 11/28 0439 97.8 85 20 138/82 91 Nasal 1.5L Cannula 11/28 0000 Nasal 1.0L Cannula 11/28 2139 97.5 92 20 140/88 92 Nasal 1.5L Cannula 11/27 1940 97 Nasal 1.5L Cannula 11/27 1600 Nasal 1.5L Cannula 11/27 1429 97.6 89 20 105/59 95 Nasal 1.5L Cannula 11/27 1228 Nasal 3.0L Cannula Intake & Output 11/28 1600 11/28 0800 11/28 0000 Intake Total 300 Output Total 500 650 Balance -500 -350 Intake, Oral 300 Output, Urine 500 650 Patient 98 lb 6 oz 100 lb Weight Weight Bed scale Measurement Method Oxygen saturation 1.5 L 91% exam for chest shows diminished breath sounds there are no wheezes or crackles cardiac exam shows a regular S1 and S2 without murmurs abdomen is soft nontender Impression/Plan Impression/Plan Impression/Plan: 82-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 Would recommend nocturnal BiPAP if tolerated / with O2 bleed in 1.5 L. Continue steroid taper. Recommendations: Repeat arterial blood gas. If hypercarbia is worse consider BiPAP 14/6 respiratory rate of 24 physical therapy evaluation for probable need short-term rehabilitation. Patient should be mobilized out of bed to prevent further atelectasis. Maintain potassium in normal level. if The patient is becoming more alkalemic addition of Diamox would be appropriate
--- NOTE | 2017-11-28 10:54 | PN- Att Addend ---
Attending Addendum Attending Brief Note Patient seen and examined. Plan of care discussed with the medical team and the patient. Available lab work and radiology test reports were reviewed. This morning she sitting in chair. She appears more alert today and denies any chest pain or recent fevers or chills. Nurses have noted some dry heaving although patient says that she just regurgitates without any nausea or vomiting. Exam: General: Patient awake but appears comfortable and oriented without any distress CVS: S1 plus S2 without any murmur or gallops Chest: Few scattered crepitation without any wheeze. There is no respiratory distress. Abdomen: Soft non-tender, bowel sound present, no guarding or rebound CHAIN TENDER: Awake lethargic oriented without any focal neuro deficit and follows commands appropriately Extremities: No edema; no clubbing or cyanosis noted Assessment * Acute on chronic hypoxic respiratory failure ( O2 sats 63% on ED) most likely COPD exacerbation. * History of Hypothyroidism * History of non-Hodgkin's lymphoma * Increased CO2 level depression includes metabolic alkalosis likely secondary to CO2 retention * Left flank pain- seems to have improved. Patient does not explicitly report worsening of her abdominal pain after eating. Abdomen is soft and nontender on exam. I reviewed an old CAT scan report which has shown calcification in the abdominal arteries which is suggestive of severe atherosclerosis. There has been concern raised about abdominal angina with the chronic mesenteric ischemia Plan * Updated CTA of abdomen to rule out mesenteric ischemia * Continue TRC nebulizer and oxygen * Taper prednisone over next 7 days * Keep oxygen at low level to avoid CO2 narcosis * Await short-term rehabilitation placement if patient is able to tolerate her diet at lunch Current Medications Sig/Abhi Start time Last Medication Dose Route Stop Time Status Admin Acetaminophen 500 MG Q6P PRN 11/22 2345 AC 11/27 PO 0945 Albuterol Sulfate 3 ML Q4P PRN 11/22 2145 AC INH Aspirin 81 MG DAILY 11/22 1703 AC 11/28 PO 0831 Citalopram 10 MG DAILY 11/23 09 AC 11/28 Hydrobromide PO 08 Docusate Sodium 100 MG DAILY 11/26 0918 AC 11/28 PO 0831 Enoxaparin Sodium 40 MG DAILY 11/23 09 AC 11/28 SC 0831 Guaifenesin 600 MG Q12 11/25 1025 AC 11/28 PO 0831 Levothyroxine Sodium 0.05 MG DAILY AC 11/23 07 AC 11/28 PO 0549 Lorazepam 0.5 MG AT BEDTIME 11/22 2099 AC 11/27 PO 11/29 Multivitamins 1 TAB DAILY 11/23 899 AC 11/28 Therapeutic PO 08 Omeprazole 40 MG DAILY AC 11/25 07 AC 11/28 PO 0549 Polyethylene Glycol 17 GM DAILY 11/26 917 AC 11/28 PO 0831 Prednisone 40 MG DAILY 11/27 899 AC 11/28 PO 0831 Senna 187 MG DAILY 11/26 916 AC 11/28 PO 0831 Laboratory Tests 11/27/17 1215: pH 7.36, pCO2 70 *H, pO2 145 H, HCO3 39 H, ABG O2 Sat (Measured) 99.0, P-50 ( Temp Corrected) N, Carboxyhemoglobin 1.0 L, O2 Concentration % 2L, O2 Delivery Method N/C, Phlebotomy Draw Site RIGHT BRACHIAL 11/27/17 0600: Anion Gap 2 L, Estimated GFR > 60, BUN/Creatinine Ratio 34.0 H, CBC w Diff NO MAN DIFF REQ, RBC 3.53 L, MCV 92.7, MCH 30.4, MCHC 32.8 L, RDW 16.5 H, MPV 6.5 L, Gran % 70.6, Lymphocytes % 15.8 L, Monocytes % 10.8 H, Eosinophils % 2.1, Basophils % 0.7, Absolute Granulocytes 4.5, Absolute Lymphocytes 1.0 L, Absolute Monocytes 0.7 H, Absolute Eosinophils 0.1, Absolute Basophils 0 11/26/17 0500: CBC w Diff NO MAN DIFF REQ, RBC 3.41 L, MCV 94.1, MCH 30.4, MCHC 32.3 L, RDW 16.3 H, MPV 6.5 L, Gran % 75.7 H, Lymphocytes % 12.3 L, Monocytes % 11.7 H, Eosinophils % 0.2, Basophils % 0.1, Absolute Granulocytes 4.9, Absolute Lymphocytes 0.8 L, Absolute Monocytes 0.8 H, Absolute Eosinophils 0, Absolute Basophils 0 Microbiology 11/27 1445 URINE ROUT: Urine Culture - RES Vital Signs Date Time Temp Pulse Resp B/P B/P Pulse O2 O2 Flow FiO2 Mean Ox Delivery Rate 11/29 799 91 Nasal 1.0L Cannula 05/25 0539 97.8 85 20 138/82 91 Nasal 1.5L Cannula 11/28 0000 Nasal 1.0L Cannula 11/27 2140 97.5 92 20 140/88 92 Nasal 1.5L Cannula 11/27 1940 97 Nasal 1.5L Cannula 11/27 1600 Nasal 1.5L Cannula 11/27 1429 97.6 89 20 105/59 95 Nasal 1.5L Cannula 11/27 1228 Nasal 3.0L Cannula Intake & Output 11/28 1600 11/28 0800 11/28 0000 Intake Total 300 Output Total 500 650 Balance -500 -350 Intake, Oral 300 Output, Urine 500 650 Patient 98 lb 6 oz 100 lb Weight Weight Bed scale Measurement Method
[2017-11-28] MEDS ORDERED: PREDNISONE10 M2 PO (11:17)
[2017-11-28] MEDS ORDERED: ATORVASTATIN CA20 M1 PO (11:17)
[2017-11-28] MEDS ORDERED: ASPIRIN81 M4 PO (11:17)
--- NOTE | 2017-11-28 13:20 | CT SCAN REPORT ---
EXAMINATION: CT LIMITED OR FOLLOWUP CLINICAL INFORMATION: Chronic mesenteric ischemia COMPARISON: 11/26/2017 TECHNIQUE: A single green material value added assessor view of the abdomen and pelvis is obtained. DLP: 0 mGy-cm FINDINGS: The green material value added assessor view demonstrates a moderate amount of dense barium throughout the colon. Therefore, the CTA was not performed. IMPRESSION: Abdominal CTA will be delayed until barium scattered throughout the large bowel has been evacuated.
[2017-11-28] MEDS ORDERED: PRAVACHOL20 M2 PO (14:04)
[2017-11-28] MEDS ORDERED: MIRALAX119 GM PO (14:04)
[2017-11-28] MEDS ORDERED: DOCUSATE SODIU100 M3 PO (14:04)
[2017-11-28 15:26] VITALS: BP 138/82
== END 2017-11-28 16:51 | DRG 190 ==
LOC: ERH 12:46 → ERHI 15:50 → 1NO 15:50 → 2NB 15:50 → ENRESERV 15:51 → ENTRNSPT 16:17 → 1NO 16:20 → CMPTRNSPT 16:38 → 1NO 11-23 14:56 → ENTRNSPT 11-26 19:38 → EDTRNSPTSTS 11-26 19:59 → 2NB 11-26 20:09 → CMPTRNSPT 11-26 20:17 → 2NB 11-28 16:51
PROVIDERS: Internal Medicine; Physician Assistant Medical
DX: J44.1 Chronic obstructive pulmonary disease with (acute) exacerbation (principal); J96.21 Acute and chronic respiratory failure with hypoxia; C85.90 Non-Hodgkin lymphoma, unspecified, unspecified site; J96.22 Acute and chronic respiratory failure with hypercapnia; Z99.81 Dependence on supplemental oxygen; Z92.3 Personal history of irradiation; Z92.21 Personal history of antineoplastic chemotherapy; R10.13 Epigastric pain; H54.7 Unspecified visual loss; Z85.89 Personal history of malignant neoplasm of other organs and systems; Z66 Do not resuscitate; I44.0 Atrioventricular block, first degree; I10 Essential (primary) hypertension; E78.5 Hyperlipidemia, unspecified; E03.9 Hypothyroidism, unspecified; F41.9 Anxiety disorder, unspecified; Z85.820 Personal history of malignant melanoma of skin
CPT/HCPCS: 1NSP; 2NBSP; 36415; 36592; 71045; 74230; 81001; 82436; 87040; 87086; 93005; 93010; 96374; 96375; 97110-GO; 97116-GO; 97161-GP; 97530-GO; J0456; J1650; J2405; J2920; J2930; J3490; J7040

== ENCOUNTER 2018-01-06 12:06 | Inpatient (IN) | payer OTHER, MEDICARE ==
[~2018-01-06] VITALS: Ht 160 cm; Wt 44.9 kg
[~2018-01-06 12:06] MED LIST changes: +ASPIRIN81 M4 PO; +ATORVASTATIN CA20 M1 PO; +DOCUSATE SODIU100 M3 PO; +MIRALAX119 GM PO; +OMEPRAZOLE20 M2 PO; +PRAVACHOL20 M2 PO; +PROAIR HFA8.5 GM INH
[2018-01-06 13:27] LABS: ABSOLUTE BASOPHIL COUNT 0 /CUMM (0.0-0.2); ABSOLUTE EOSINOPHIL COUNT 0.1 /CUMM (0.0-0.7); ABSOLUTE GRANULOCYTE CT 5.5 /CUMM (1.4-6.5); ABSOLUTE LYMPH COUNT 0.4 /CUMM (1.2-3.4); ABSOLUTE MONOCYTE COUNT 0.5 /CUMM (0.10-0.60); BASOPHIL % 0.4 % (0.0-2.0); GRANULOCYTE % 83.3 % (42.2-75.2); HEMATOCRIT 34.7 % (37-47); MEAN CORPUSCULAR HGB 31.2 PG (27.0-31.0); MEAN CORPUSCULAR HGB CONC 33.6 G/DL (33.0-37.0); MEAN PLATELET VOLUME 6.3 FL (7.4-10.4); PLATELET COUNT 294 /CUMM (130-400); RBC DISTRIBUTION WIDTH 18.2 % (11.5-14.5); RED BLOOD CELL CT 3.73 /CUMM (4.20-5.40); WHITE BLOOD CELL COUNT 6.6 /CUMM (4.8-10.8)
[2018-01-06] MEDS ORDERED: ASPIRIN81 M4 PO (14:28)
[2018-01-06] MEDS ORDERED: SENNA S TABLET1 EACH PO (14:28)
--- NOTE | 2018-01-06 14:56 | CT SCAN REPORT ---
EXAMINATION: CT ABDOMEN AND PELVIS WITHOUT CONTRAST CLINICAL INFORMATION: Right-sided flank and tach pain. Evaluate kidney stones, pyelonephritis, compression fracture. COMPARISON: Chest CT from 01/25/2016 TECHNIQUE: Multidetector volumetric imaging was performed from the superior aspect of the liver through the pubic symphysis. Sagittal and coronal reformatted images were obtained on the technologist's workstation. DLP: 229 mGy-cm FINDINGS: LUNG BASES: Moderate centrilobular emphysema in the visualized lung bases. Small, 0.4 cm solid, noncalcified nodule of the right lower lobe is stable compared to 01/25/2016 (image 21, series 3). Atherosclerosis of coronary arteries and aorta. The visualized descending thoracic aorta is mildly ectatic. LIVER, GALLBLADDER, AND BILIARY TREE: Liver has normal size, contour and attenuation. The small, 0.6 cm nodular focus that is isodense to the liver at the posterior hepatic surface is a benign finding, unchanged compared to 01/25/2016. No suspicious liver lesion. Gallbladder surgically absent. No intrahepatic or extrahepatic bile duct dilatation. PANCREAS: Unremarkable. SPLEEN: Unremarkable. ADRENAL GLANDS: Unremarkable. KIDNEYS AND URETERS: Kidneys are normal in size. 0.8 cm hyperdense cyst of the lower pole the right kidney. 1.4 cm cortical cyst of the upper pole of the left kidney has a simple appearance on these noncontrast images. Small, 0.3 cm calyceal stone is present within the left upper pole. No ureterolithiasis, hydroureteronephrosis or perinephric edema. BLADDER: Unremarkable. GASTROINTESTINAL TRACT: Stomach is underdistended. Loops of bowel are normal in caliber. Multiple, scattered diverticula of the colon without diverticulitis. No evidence of acute inflammation or obstruction of the gastrointestinal tract. No ascites or pneumoperitoneum. ABDOMINAL WALL: Unremarkable. LYMPH NODES: Normal. VASCULAR: There is extensive atherosclerotic calcification of the abdominal aorta without aneurysm. The infrarenal abdominal aorta measures up to 2.6 cm AP diameter. No retroperitoneal hematoma. PELVIC VISCERA: Status post hysterectomy. No pelvic mass or free fluid. Multiple phleboliths within the lower pelvis. OSSEOUS STRUCTURES: Diffuse osteoporosis. New compression fracture of L1 vertebral body with fracture line extending to the superior endplate. There is approximately 35% anterior height loss of the L1 vertebral body. There is an old, severe compression fracture of L2. The 75% central height loss of the compressed L2 vertebral body is worse compared to 06/19/2015 but unchanged compared to 01/25/2016. There is chronic, mild retropulsion of the posterosuperior wall of the L2 vertebral body without significant central canal stenosis. The neural foramina are widely patent. 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 Chondrocalcinosis of pubic symphysis and hips. IMPRESSION: 1. No acute findings along the urinary tracts. No hydronephrosis or perinephric edema. A 0.3 cm nonobstructing calculus is present within the upper pole of the left kidney. 2. Atherosclerotic disease of the abdominal aorta without aneurysm. 3. Diffuse osteoporosis. The severity of the L2 compression fracture is unchanged compared to 01/25/2016. A new compression fracture of the L1 vertebral body exhibits approximately 35% anterior height reduction. The lumbar vertebral alignment is maintained. 4. Colonic diverticulosis without diverticulitis. 5. Centrilobular emphysema within the visualized lung bases.
--- NOTE | 2018-01-06 15:47 | History & Physical ---
Shital Doan 01/06/18 1547: General Information and HPI MD Statement: I have seen and personally examined RADHA ORTIZ and documented this H&P. The patient is a 82 year old F who presented with a patient stated chief complaint of [back pain]. Source of Information: patient, family, old records Exam Limitations: clinical condition History of Present Illness: 80 year woman from home, with past medical history of COPD on 1.5L of home O2, Non Hodgkins Lymphoma status post chemo and radiation therapy in 2016 with complications of right eye blindness and decreased sensation on right side of face, history of lung nodule, salivary carcinoma, anxiety and hypothyroidism recently admitted to [facility] for COPD exacerbation and sent to [facility] for physical therapy secondary to generalized weakness. She was discharged about 10 days ago and states that she felt well till about yesterday. Family friends present however stated that she has been having decreasing PO intake. Today she was brought to the ED as she was experiencing severe 9/10 non radiating back pain, apparently yesterday she bent down to pick a piece of paper and that when she feels that her pain started and steadily worsened. ROS significant for weakness and shortness of breath. Denies recent falls,fever chills nausea/vomiting diarrhea, abdominal pain chest pain, dysuria, bowel and bladder incontinence. 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 Sister Services at Home: None Primary Language: Hong Konger ETOH Use: denies use Illicit Drug Use: denies illicit drug use Functional Ability ADLs Independent: dressing, eating, toileting, bathing. Ambulation: walker Review of Systems Review of Systems Constitutional: Reports: see HPI. Exam & Diagnostic Data Last 24 Hrs of Vital Signs/I&O Vital Signs Date Time Temp Pulse Resp B/P B/P Pulse O2 O2 Flow FiO2 Mean Ox Delivery Rate 01/069 Nasal 2.0L Cannula 01/06 1736 99 Nasal 1.5L Cannula 01/06 1730 92 Nasal 4.0L Cannula 01/06 1454 98.7 70 18 120/75 99 Nasal 1.5L Cannula 01/06 1443 Nasal 1.5L Cannula 01/06 1212 97.5 88 18 124/79 89 Nasal 1.5L Cannula Intake & Output 01/06 1600 01/06 0800 01/06 0000 Intake Total 1100 Output Total Balance 1100 Intake, IV 1100 Patient 99 lb 15.99 oz Weight Weight Reported by Patient Measurement Method Physical Exam General Appearance Alert, Oriented X3, Cooperative, Moderate Distress Skin No Breakdown HEENT PERRLA, very dry mucous membranes Cardiovascular Normal S1, Normal S2 Lungs b/l decreased breath sounds Abdomen Normal Bowel Sounds, Soft, No Tenderness Extremities No Edema Diagnostic Data Other Results SERVICE DATE: 01/06/18-1211 EXAM TYPE: CAT - CT ABD & PELVIS W/O IV CONTRAST IMPRESSION: 1. No acute findings along the urinary tracts. No hydronephrosis or perinephric edema. A 0.3 cm nonobstructing calculus is present within the upper pole of the left kidney. 2. Atherosclerotic disease of the abdominal aorta without aneurysm. 3. Diffuse osteoporosis. The severity of the L2 compression fracture is unchanged compared to 01/25/2016. A new compression fracture of the L1 vertebral body exhibits approximately 35% anterior height reduction. The lumbar vertebral alignment is maintained. 4. Colonic diverticulosis without diverticulitis. 5. Centrilobular emphysema within the visualized lung bases. Assessment/Plan Assessment: 80 year woman from home, with past medical history of COPD on 1.5L of home O2, Non Hodgkins Lymphoma status post chemo and radiation therapy in 2016 with complications of right eye blindness and decreased sensation on right side of face, history of lung nodule, salivary carcinoma, anxiety and hypothyroidism brought in for evaluation of worsening back pain found to have L2 compression fracture is unchanged compared to 01/25/2016. A new compression fracture of the L1 vertebral body exhibits approximately 35% anterior height reduction. The lumbar vertebral alignment is maintained. After transfer from ED she was noted to desaturate tp Problem list: Compression fractures of L1-2 Acute on chronic hypoxic respiratory failure Hypothyroidism asymptomatic bacteruria anxiety/depression History of non-Hodgkin's lymphoma History of salivary carcinoma Plan: Admit to general medicine floor, vitals per protocols Pain control with nasal calcitonin and percocet for now, if no improvement noted or pain worsens can see if she is candidated for vertebro or kyphoplasty ( can be done as outpt as well) TRC, ATC/nebs, continue supplemental oxygen will hold of treating her dirty UA as currently not symptomatic continue home meds of xanax, levothryoxine,omeprazole dvt ppx sc lovenox code status DNR/DNI As Ranked By This Provider Problem List: 1. Back pain Core Measures/Misc (03/23) Acute Coronary Syndrome ACS Diagnosis: No Congestive Heart Failure Congestive Heart Failure Diagnosis No Cerebrovascular Accident CVA/TIA Diagnosis: No VTE (View Protocol) VTE Risk Factors Age>40 No Mechanical VTE Prophylaxis d/t N/A MechProphylax Ordered No VTE Pharm Prophylaxis d/t NA PharmProphylax ordered Sepsis (View protocol) Sepsis Present: No If YES complete Sepsis Event Note If YES complete Sepsis Event Note Delroy Dobbs 01/06/18 1707: General Information and HPI Allergies/Medications Home Med list Albuterol Sulfate (Proair Hfa) 90 MCG HFA.AER.AD 2 PUF INH Q4-6 PRN PRN Shortness of Breath Amoxicillin/Clavulanate Potass (Amox-Clav 875-125 MG Tablet) 875 MG-125 MG TABLET 875 MG PO Q12 Aspiration PNA Aspirin (Aspirin*) 81 MG TAB.CHEW 1 TAB PO QPM HEART HEALTH (Reported) Citalopram Hydrobromide (Citalopram HBr) 10 MG TABLET 1 TAB PO DAILY DEPRESSION (Reported) Levothyroxine Sodium (Levoxyl) 50 MCG TABLET 1 TAB PO DAILY THYROID (Reported ) Lorazepam 0.5 MG TABLET 1 TAB PO AT BEDTIME anxiety (Reported) Omeprazole 20 MG CAPSULE.DR 40 MG PO DAILY AC gastric protection Polyethylene Glycol 3350 (Miralax) 17 GRAM/DOSE POWDER 1 UNITS PO DAILY constipation Sennosides/Docusate Sodium (Senna S Tablet) 8.6 MG-50 MG TABLET 1 TAB PO QPM CONSTIPATION (Reported) Umeclidinium Luke (Incruse Ellipta) 62.5 MCG BLST.W.DEV 1 PUFF PO DAILY COPD (Reported) Core Measures/Misc (03/23) Sepsis (View protocol) If YES complete Sepsis Event Note If YES complete Sepsis Event Note Attending MD Review Statement Attending Statement Attending MD Statement: examined this patient, discuss w/resident/PA/LINE PREP COOK, agreed w/resident/PA/LINE PREP COOK, reviewed EMR data (avail), discussed with case mgmt Attending Assessment/Plan: 80 yr old F with PMH of COPD on 1.5L O2 at home, non-hodgkins lymphoma s/p chemo and radiation therapy in 2016, lung nodule, salivary carcinoma, anxiety and hypothyroidism, who was recently admitted to [facility] for acute on chronic resp failure and copd exacerbation and dced on 11/28/17. Pt was at rehab and was recently dced home from [facility] about 10 days ago and was getting home PT . Pt lives with her sister and she helps her around and she normally walks with walker. Pt now presented to the ER with low back pain and found to have new compression fracture of L1 vertebra on CT scan. Pt also found to have UA with wbc of 5-10 and Large LE and nitrite negative urine. Acute compression fracture of L1- pt denies any falls recently but she has compression fracture previously also. Pt says she was supposed to be taking vit D but was not taking it. Will check vit D level. will start her on pain meds and will start her on calcitonin spray for now. If her pain does not get better then we will get IR for verterbral augmentation procedure. Bacteriuria- will monitor her off abx for now. d/w pt and her friends at bedside the care plan.
--- NOTE | 2018-01-06 15:55 | ED GENERAL ADULT ---
History of Present Illness General Chief Complaint: Abdominal Pain/Flank Pain Stated Complaint: R SIDED FLANK PAIN Source: patient, family, old records Exam Limitations: no limitations Vital Signs & Intake/Output Vital Signs & Intake/Output Vital Signs Date Time Temp Pulse Resp B/P B/P Pulse O2 O2 Flow FiO2 Mean Ox Delivery Rate 01/06 1454 98.7 70 18 120/75 99 Nasal 1.5L Cannula 01/06 1443 Nasal 1.5L Cannula 01/06 1212 97.5 88 18 124/79 89 Nasal 1.5L Cannula Allergies Coded Allergies: STATINS (UNKNOWN PT DOES NOT REMEMBER 11/22/17) codeine (HEADACHES 05/24/17) Reconcile Medications Albuterol Sulfate (Proair Hfa) 90 MCG HFA.AER.AD 2 PUF INH Q4-6 PRN PRN Shortness of Breath Aspirin (Aspirin*) 81 MG TAB.CHEW 1 TAB PO QPM HEART HEALTH (Reported) Citalopram Hydrobromide (Citalopram HBr) 10 MG TABLET 1 TAB PO DAILY DEPRESSION (Reported) Levothyroxine Sodium (Levoxyl) 50 MCG TABLET 1 TAB PO DAILY THYROID (Reported ) Omeprazole 20 MG CAPSULE.DR 40 MG PO DAILY AC gastric protection Polyethylene Glycol 3350 (Miralax) 17 GRAM/DOSE POWDER 1 UNITS PO DAILY constipation Sennosides/Docusate Sodium (Senna S Tablet) 8.6 MG-50 MG TABLET 1 TAB PO QPM CONSTIPATION (Reported) Umeclidinium [place] (Incruse Ellipta) 62.5 MCG BLST.W.DEV 1 PUFF PO DAILY COPD (Reported) Triage Note: PT TO ED WITH C/O RIGHT SIDED BACK PAIN "PULLED A MUSCLE". PER FAMILY SENT IN FOR DEHYDRATION, AND BACK PAIN BY ALEX JARRETT. WAS RECENTLY IN [place] FOR REHAB LAST WEEK. Triage Nurses Notes Reviewed? yes Onset: Last week Duration: week(s):, constant, continues in ED Timing: recent history Injury Environment: home Severity: severe Modifying Factors: Improves With: rest. Worsens With: movement. Associated Symptoms: back pain LMP (ages 10-50): post menopausal : No Patient currently breastfeeds: No HPI: In November the patient was hospitalized for COPD exacerbation and sent to [facility] for physical therapy secondary to generalized weakness. She was discharged 1 week ago after 30 day stay. Since being home the patient complains of increasing sharp right low back pain worse with turning bending movement with decreasing mobility no unable to get out of bed. She also has been not eating and drinking secondary to the pain. There has been no fever chills nausea vomiting diarrhea abdominal pain chest pain shortness breath headache dysuria rash bleeding change in motor sensory function change in bowel bladder habit. Past History Travel History Traveled to [place] past 21 day No Medical History Any Pertinent Medical History? 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 No Review of Systems Review of Systems Constitutional: Reports: see HPI, malaise, weakness. EENTM: Reports: no symptoms. Respiratory: Reports: no symptoms. Cardiovascular: Reports: no symptoms. GI: Reports: no symptoms. Genitourinary: Reports: no symptoms. Musculoskeletal: Reports: see HPI, back pain, muscle pain. Skin: Reports: no symptoms. Neurological/Psychological: Reports: no symptoms. Hematologic/Endocrine: Reports: no symptoms. Immunologic/Allergic: Reports: no symptoms. All Other Systems: Reviewed and Negative Physical Exam Physical Exam General Appearance: well developed/nourished, alert, awake, anxious, moderate distress, thin Head: atraumatic, normal appearance Eyes: Bilateral: normal appearance, PERRL, EOMI. Ears, Nose, Throat: normal pharynx, normal ENT inspection, hearing grossly normal Neck: normal inspection, supple, full range of motion, no midline tenderness Respiratory: normal breath sounds, chest non-tender, no respiratory distress, quiet respiration, lungs clear Cardiovascular: regular rate/rhythm, normal peripheral pulses, norml femoral pulses equa Peripheral Pulses: 4+ carotid (R), 4+ carotid (L) Gastrointestinal: normal bowel sounds, soft, non-tender, no organomegaly Back: normal inspection, vertebral tenderness, decreased range of motion, muscle spasm Extremities: normal inspection, normal capillary refill, normal range of motion, no edema Neurologic/Psych: no motor/sensory deficits, awake, alert, oriented x 3, normal mood/affect, director of public safety II-XII nml as tested Reflexes: 2+: bicep (R), bicep (L). Skin: intact, normal color, cyanosis Lymphatic: no anterior cervical galindo Core Measures ACS in differential dx? No CVA/TIA Diagnosis: No Sepsis Present: No Sepsis Focused Exam Completed? No Progress Differential Diagnoses I considered the following diagnoses in my evaluation of the patient: Compression fracture pyelonephritis electrolyte abnormality Plan of Care: Orders Procedure Date/time Status Regular Diet 01/06 D Active Add-on Test (ER Only) 01/06 1657 Active Patient Data 01/06 1545 Active OXYGEN SETUP (GEN) 01/06 1532 Active Saline Lock 01/06 1532 Active Admit to inpatient 01/06 1532 Active Vital Signs 01/06 1532 Active Activity/Ambulation 01/06 1532 Active Code Status 01/06 1532 Active Intake & Output 01/06 1445 Active LACTIC ACID 01/06 1212 Complete URINALYSIS 01/06 1209 Complete TROPONIN LEVEL 01/06 1209 Complete LIPASE 01/06 1209 Complete COMPREHENSIVE METABOLIC PANEL 01/06 1209 Complete CBC WITHOUT DIFFERENTIAL 01/06 1209 Complete Laboratory Tests 01/06/18 1512: Lactic Acid Cancelled 01/06/18 1335: Urinalysis LIGHT H, Urine Color YEL, Urine Clarity CLDY H, Urine pH 7.5, Ur Specific Alvarado 1.015, Urine Protein TRACE H, Urine Ketones 15 H, Urine Nitrite NEG, Urine Bilirubin NEG, Urine Urobilinogen 0.2, Ur Leukocyte Esterase LARGE H, Ur Microscopic SEDIMENT EXAMINED, Urine RBC 25-50 H, Urine WBC 5-10 H, Urine Bacteria FEW H, Urine Hemoglobin MOD H, Urine Glucose NEG 01/06/18 1315: Lactic Acid 1.4 01/06/18 1315: Anion Gap 9, Estimated GFR > 60, BUN/Creatinine Ratio 24.0, Glucose 97, Calcium 9.2, Total Bilirubin 0.5, AST 23, ALT 19, Alkaline Phosphatase 91, Troponin I < 0.01, Total Protein 6.3, Albumin 3.7, Globulin 2.6, Albumin/Globulin Ratio 1.4, Lipase 64, CBC w Diff NO MAN DIFF REQ, RBC 3.73 L, MCV 93.0, MCH 31.2 H, MCHC 33.6, RDW 18.2 H, MPV 6.3 L, Gran % 83.3 H, Lymphocytes % 6.5 L, Monocytes % 7.8, Eosinophils % 2.0, Basophils % 0.4, Absolute Granulocytes 5.5, Absolute Lymphocytes 0.4 L, Absolute Monocytes 0.5, Absolute Eosinophils 0.1, Absolute Basophils 0 Diagnostic Imaging: Viewed by Me: CT Scan. Discussed w/RAD: CT Scan. Radiology Impression: 1. No acute findings along the urinary tracts. No hydronephrosis or perinephric edema. A 0.3 cm nonobstructing calculus is present within the upper pole of the left kidney. 2. Atherosclerotic disease of the abdominal aorta without aneurysm. 3. Diffuse osteoporosis. The severity of the L2 compression fracture is unchanged compared to 01/25/2016. A new compression fracture of the L1 vertebral body exhibits approximately 35% anterior height reduction. The lumbar vertebral alignment is maintained. 4. Colonic diverticulosis without diverticulitis. 5. Centrilobular emphysema within the visualized lung bases. Initial ED EKG: none Departure Departure Disposition: STILL A PATIENT Condition: Fair Clinical Impression Primary Impression: Compression fracture of first lumbar vertebra Secondary Impressions: Hyponatremia, UTI (urinary tract infection) Referrals: Beena Jarrett APRN (PCP/Family) Departure Forms: Customer Survey General Discharge Information Admission Note Spoke With: Delroy Dobbs MD Documentation of Exam: Documentation of any treatments & extenuating circumstances including Concerns Regarding Discharge (functional status, medication knowledge or non-compliance, living conditions, etc.) that warrant an admission rather than observation: IV analgesia IV antibiotics follow urine culture medication adjustment physical therapy evaluation continuing care discharge planning Critical Care Note Critical Care Note Critical Care Time: non-applicable
[2018-01-06 22:53] VITALS: BP 130/80
[2018-01-06] MEDS ORDERED: LORAZEPAM0.5 M1 PO (23:00)
[2018-01-07 06:34] VITALS: BP 110/70
[2018-01-07 13:40] VITALS: BP 112/76
--- NOTE | 2018-01-07 14:45 | PN- Housestaff ---
Phil Bennett 01/07/18 1445: Subjective Follow-up For: Back pain Complaints: pain scale (0-10) (8/10) Subjective: Hospital day 1. Patient was seen and examined at bedside. Patient did appear tired but was responsive, making jokes, and interactive. Complained only of pain in the middle of her back. Patient denied shortness of breath, headache, vision changes, or fever. Review of Systems Constitutional: Reports: no symptoms. Musculoskeletal: Reports: back pain. Objective Last 24 Hrs of Vital Signs/I&O Vital Signs Date Time Temp Pulse Resp B/P B/P Pulse O2 O2 Flow FiO2 Mean Ox Delivery Rate 01/07 1600 94 Nasal 2.0L Cannula 01/07 1340 97.9 76 20 112/76 98 Nasal 4.0L Cannula 01/07 0800 Nasal 4.0L Cannula 01/07 0634 97.4 77 20 110/70 100 Nasal 4.0L Cannula 01/07 0000 Nasal 4.0L Cannula 01/06 2253 97.7 88 20 130/80 100 Nasal 4.0L Cannula 01/06 2119 Nasal 2.0L Cannula Intake & Output 01/07 1600 0704 0800 07 0000 Intake Total 1170 120 240 Output Total Balance 1170 120 240 Intake, IV 0 Intake, Oral 1170 120 240 Number 0 0 Bowel Movements Patient 99 lb 0.01 oz 99 lb 15.99 oz Weight Weight Reported by Patient Measurement Method Physical Exam General Appearance: Alert, Oriented X3, Cooperative, Mild Distress Skin: No Rashes, No Breakdown Skin Temp/Moisture Exam: Warm/Dry Sepsis Skin Exam (color): Normal for Ethnicity HEENT: Atraumatic Neck: Supple, No thryomegaly Cardiovascular: Regular Rate, Normal S1, Normal S2, No Murmurs Lungs: Clear to Auscultation, Normal Air Movement Abdomen: Normal Bowel Sounds, Soft, No Tenderness, No Hepatospenomegaly Neurological: Normal Speech, Normal Tone, Sensation Intact Extremities: No Edema, Normal Pulses, tenderness over right lower leg Assessment/Plan Assessment: 82-year-old woman past medical history of COPD on 1.5 L home oxygen non-Hodgkin' s lymphoma status post chemo and radiation therapy with complications of right eye blindness and decreased sensation of right side of face. Past medical history of lung nodule, salivary carcinoma, anxiety, and hypothyroidism who presents with chief complaint of back pain. CT scan showed L2 fracture unchanged since 2016 and new L1 fracture, and advanced osteoporosis. Patient admitted to general med floor. Pain is being treated with Percocet. Problem list: -Asymptomatic bacteriuria -COPD, on 1.5 L home oxygen Plan: Patient was to be taking vitamin D but has not been. Follow-up vitamin D level. Continue on pain medications and calcitonin spray. Monitor bacteriuria off antibiotics for now. Patient needs PT eval, family request home PT DVT prophylaxis: ALPS and Lovenox Patient is DNR/DNI Problem List: 1. Compression fracture of first lumbar vertebra 2. UTI (urinary tract infection) Pain Ratin Pain Location: Lower back Pain Goal: Pain 4 or less Pain Plan: Percocet Tomorrow's Labs & Rationales: None Adan Baxter 01/07/18 1600: Attending MD Review Statement Attending Statement Attending MD Statement: examined this patient, discuss w/resident/PA/HAIR SAMPLE MATCHER, agreed w/resident/PA/HAIR SAMPLE MATCHER, discussed with family, reviewed EMR data (avail), discussed with nursing, discussed with case mgmt, reviewed images, amended to note Attending Assessment/Plan: Acute compression fracture of L1- pt denies any falls recently Pt says she was supposed to be taking vit D but was not taking it. f/u vit D level. Continue on pain meds and calcitonin spray. Pain appears to be controlled. Family/POA bedside declines IR or invasive intervention. Bacteriuria- will monitor her off abx for now. History of cancer in past, Needs to follow her oncologist at [place]. General physical deconditinonig Needs PT eval, family requests home PT. d/w pt and her family at bedside the care plan.
[2018-01-07 22:38] VITALS: BP 110/60
--- NOTE | 2018-01-08 06:44 | PN- Housestaff ---
Phil Bennett 01/08/18 0643: Subjective Follow-up For: Lumbar fracture Subjective: Patient was seen and examined at the bedside. Patient was quite lethargic, presumably due to Percocet use to control her pain. Patient's sister was also at the bedside, and had concerns about the pain regimen. We decided to try Naprosyn to treat the patient's pain and not depress her cognition or breathing. Otherwise no complaints Review of Systems Constitutional: Reports: no symptoms. Objective Last 24 Hrs of Vital Signs/I&O Vital Signs Date Time Temp Pulse Resp B/P B/P Pulse O2 O2 Flow FiO2 Mean Ox Delivery Rate 01/08 1404 96.7 81 18 94/62 94 Nasal 4.0L Cannula 01/08 0800 95 Nasal 2.0L Cannula 01/08 0703 97.6 76 18 104/58 95 /05 0000 Nasal 2.0L Cannula 01/07 2238 97.5 83 17 110/60 91 Nasal 4.0L Cannula Intake & Output 01/08 1600 01/08 0800 07 0000 Intake Total 1090 480 600 Output Total Balance 1090 480 600 Intake, IV 610 600 Intake, Oral 480 480 Physical Exam General Appearance: Cooperative, No Acute Distress, lethargic and not oriented Skin: No Rashes Skin Temp/Moisture Exam: Warm/Dry Sepsis Skin Exam (color): Normal for Ethnicity HEENT: Atraumatic, PERRLA Neck: Supple, No thryomegaly Cardiovascular: Regular Rate, Normal S1, Normal S2, No Murmurs Lungs: Clear to Auscultation, Normal Air Movement Abdomen: Normal Bowel Sounds, Soft, No Tenderness Neurological: decreased attention and interaction Extremities: No Edema, Normal Pulses Assessment/Plan Assessment: 82-year-old woman past medical history of COPD on 1.5 L home oxygen non-Hodgkin' s lymphoma status post chemo and radiation therapy with complications of right eye blindness and decreased sensation of right side of face. Past medical history of lung nodule, salivary carcinoma, anxiety, and hypothyroidism who presents with chief complaint of back pain. CT scan showed L2 fracture unchanged since 2016 and new L1 fracture, and advanced osteoporosis. Patient admitted to general med floor. Pain is being treated with Percocet, and now with Naprosyn. Problem list: -Asymptomatic bacteriuria -COPD, on 1.5 L home oxygen Plan: Vitamin D level was low. Ordered 50,000 international units for 1 time treatment. Continue on pain medications. Discontinue calcitonin spray. Monitor bacteriuria off antibiotics for now. Patient needs PT eval, family request home PT DVT prophylaxis: ALPS and Lovenox Patient is DNR/DNI Problem List: 1. Compression fracture of first lumbar vertebra 2. UTI (urinary tract infection) Pain Ratin Pain Location: None Pain Goal: Remain pain free Pain Plan: Percocet and Naprosyn Tomorrow's Labs & Rationales: None Adan Baxter 01/08/18 1156: Attending MD Review Statement Attending Statement Attending MD Statement: examined this patient, discuss w/resident/PA/HOMEOPATHIC DOCTOR, agreed w/resident/PA/HOMEOPATHIC DOCTOR, discussed with family, reviewed EMR data (avail), discussed with nursing, discussed with case mgmt, reviewed images, amended to note Attending Assessment/Plan: No new complanits. Pain controlled. Able to toelrate diet. PT consult today to assess functional status. Continue monitor off antibitoics.
[2018-01-08 07:03] VITALS: BP 104/58
--- NOTE | 2018-01-08 12:48 | Patient Discharge Instructions ---
Discharge Instructions General Discharge Information Special Instructions: - Please follow up with your primary care physician within 1-2 weeks of discharge. Inform your primary care physician of this admission to [facility]. - Continue your current medications per discharge instructions. - Please watch for these problems: Fever, Chills, Nausea, Vomiting, Shortness of Breath, Productive Cough, Chest Pain/Discomfort, Abdominal Pain, Active Bleeding or Bloody urine/stool. Diet Continue normal diet: Yes Activity Full Activity/No Limits: No Activity Self Limited: Yes Acute Coronary Syndrome Inclusion Criteria At DC or during hospital stay patient has or had the following: ACS DIAGNOSIS No Discharge Core Measures Meds if any: Prescribed or Continued at Discharge Meds if any: NOT Prescribed or Continued at Discharge Congestive Heart Failure Inclusion Criteria At DC or during hospital stay patient has or had the following: CHF DIAGNOSIS No Discharge Core Measures Meds if any: Prescribed or Continued at Discharge Meds if any: NOT Prescribed or Continued at Discharge Cerebrovascular accident Inclusion Criteria At DC or during hospital stay patient has or had the following: CVA/TIA Diagnosis No Discharge Core Measures Meds if any: Prescribed or Continued at Discharge Meds if any: NOT Prescribed or Continued at Discharge Venous thromboembolism Inclusion Criteria VTE Diagnosis No VTE Type NONE VTE Confirmed by (Test) NONE Discharge Core Measures - Per Current guidelines, there needs to be overlap - treatment for the first 5 days of Warfarin therapy. - If discharged on Warfarin prior to 5 days of - overlap therapy, the patient will need to be - assessed for post discharge needs including - *Post discharge parental anticoagulation - *Warfarin and/or parental anticoagulation education - *Follow up date to check INR post discharge At least 5 days overlap therapy as Inpatient No Meds if any: Prescribed or Continued at Discharge Note: Overlap Therapy is Warfarin and Anticoagulant Meds if any: NOT Prescribed or Continued at Discharge
[2018-01-08 14:04] VITALS: BP 94/62
[2018-01-08 21:20] VITALS: BP 102/62
[2018-01-09 05:58] VITALS: BP 110/60
--- NOTE | 2018-01-09 06:46 | PN- Housestaff ---
See Addendum Subjective Follow-up For: Lumbar fracture; now for hypoxic COPD exacerbation Subjective: Patient was seen and examined at the bedside. Since yesterday, patient has deteriorated, requiring 40% oxygen, presumably for hypoxic COPD exacerbation. Patient l minimally responsive.Otherwise no complaints. Review of Systems Constitutional: Reports: no symptoms (subjective obtained from nurse). Objective Last 24 Hrs of Vital Signs/I&O Vital Signs Date Time Temp Pulse Resp B/P B/P Pulse O2 O2 Flow FiO2 Mean Ox Delivery Rate 01/10 800 Venti Mask 40% 01/09 0558 98.0 85 20 110/60 95 Venti Mask 01/09 0000 92 Venti Mask 40% 01/08 2120 98.0 76 19 102/62 90 Nasal 4.5L Cannula 01/08 2015 88 Nasal 4.0L Cannula 01/08 1630 Nasal 4.0L Cannula 01/08 1600 94 Nasal 4.0L Cannula 01/08 1404 96.7 81 18 94/62 94 Nasal 4.0L Cannula Intake & Output 01/09 1600 01/09 0800 01/09 0000 Intake Total 720 360 Output Total Balance 720 360 Intake, IV 600 300 Intake, Oral 120 60 Physical Exam General Appearance: Cooperative, Mild Distress (lethargic, oriented to place) Skin: No Rashes, No Breakdown Skin Temp/Moisture Exam: Warm/Dry Sepsis Skin Exam (color): Normal for Ethnicity HEENT: patient maintained eyes closed Neck: Supple, JVD present Lymphatic: Axillary nl, Cervical nl Cardiovascular: Regular Rate, Normal S1, Normal S2, No Murmurs Lungs: Clear to Auscultation, Normal Air Movement Abdomen: Soft, No Tenderness Neurological: impaired, lethargic speech Extremities: No Edema, Normal Pulses Assessment/Plan Assessment: 82-year-old woman past medical history of COPD on 1.5 L home oxygen non-Hodgkin' s lymphoma status post chemo and radiation therapy with complications of right eye blindness and decreased sensation of right side of face. Past medical history of lung nodule, salivary carcinoma, anxiety, and hypothyroidism who presents with chief complaint of back pain. CT scan showed L2 fracture unchanged since 2016 and new L1 fracture, and advanced osteoporosis. Patient admitted to general med floor. Pain is being treated with Percocet, and now with Naprosyn. Patient is desatted, requiring an increase in oxygen to 40% on mask. In context of acute exacerbation, chest x-ray ordered. Problem list: -Asymptomatic bacteriuria -COPD, on 1.5 L home oxygen Plan: Chest x-ray for acute hypoxic COPD exacerbation Vitamin D level was low. Ordered 50,000 international units for 1 time treatment. Continue on pain medications. Discontinue calcitonin spray. Monitor bacteriuria off antibiotics for now. Pending stat CBC and BEP for today, consider repeating tomorrow Swallow eval ordered PT eval suggests short-term rehab, family request home PT DVT prophylaxis: ALPS and Lovenox Patient is DNR/DNI Problem List: 1. Compression fracture of first lumbar vertebra 2. UTI (urinary tract infection) 3. COPD exacerbation Pain Ratin Pain Location: None Pain Goal: Remain pain free Pain Plan: Percocet and Naprosyn Tomorrow's Labs & Rationales: Possible CBC and BEP, pending today's results Discharge Plan Stable for Discharge? No Anticipated Discharge (Day): unknown
[2018-01-09 10:52] LABS: ABSOLUTE BASOPHIL COUNT 0.1 /CUMM (0.0-0.2); ABSOLUTE EOSINOPHIL COUNT 0.5 /CUMM (0.0-0.7); ABSOLUTE GRANULOCYTE CT 3.7 /CUMM (1.4-6.5); ABSOLUTE LYMPH COUNT 0.5 /CUMM (1.2-3.4); ABSOLUTE MONOCYTE COUNT 0.5 /CUMM (0.10-0.60); BASOPHIL % 1.6 % (0.0-2.0); EOSINOPHIL % 8.9 % (0-5); GRANULOCYTE % 69.4 % (42.2-75.2); HEMATOCRIT 32.1 % (37-47); MEAN CORPUSCULAR HGB 30.5 PG (27.0-31.0); MEAN CORPUSCULAR HGB CONC 31.9 G/DL (33.0-37.0); MEAN CORPUSCULAR VOLUME 95.8 FL (81.0-99.0); PLATELET COUNT 227 /CUMM (130-400); RBC DISTRIBUTION WIDTH 18.3 % (11.5-14.5); RED BLOOD CELL CT 3.35 /CUMM (4.20-5.40); WHITE BLOOD CELL COUNT 5.3 /CUMM (4.8-10.8)
[2018-01-09 13:41] VITALS: BP 120/70
--- NOTE | 2018-01-09 13:54 | RADIOLOGY REPORT ---
EXAMINATION: XR PORTABLE CHEST CLINICAL INFORMATION: History of COPD. Overnight increased oxygen need. COMPARISON: Chest done on 11/26/2017. TECHNIQUE: Portable frontal view of the chest was obtained. FINDINGS: Hyperinflated lung field is present bilaterally. Subtle ill-defined opacities are noted at both lung bases (right greater than left), may represent trace amount of bilateral pleural effusions, pleural thickening or combination thereof with nonspecific bibasilar airspace disease, appear new or progressed on the right and appears similar on the left since 11/26/2017. Presumed pleural parenchymal scar-related changes are noted at both upper lobes. The remainder of the lung valdez are clear. The cardiomediastinal silhouette is remarkable for undulated tortuous descending thoracic aorta, unchanged. There is a right-sided Port-A-Cath present with its tip seen projecting at the cavoatrial junction, unchanged. IMPRESSION: Nonspecific bibasilar pleural parenchymal changes are noted, appear new or progressed on the right and similar on the left since 11/26/2017, may represent trace amount of bilateral pleural effusions, thickening or combination thereof and nonspecific bibasilar airspace disease.
[2018-01-09 21:20] VITALS: BP 120/62
[2018-01-10 05:07] VITALS: BP 128/72
--- NOTE | 2018-01-10 06:34 | PN- Housestaff ---
WardWendi 01/10/18 0634: Subjective Follow-up For: Aspiration PNA? Compression fracture Subjective: NO overnight event. Patient remained on ventimask, and per nursing staff, patient's satting has been ok however continued to complain of difficulty breathing. Review of Systems Constitutional: Reports: see HPI. Objective Last 24 Hrs of Vital Signs/I&O Vital Signs Date Time Temp Pulse Resp B/P B/P Pulse O2 O2 Flow FiO2 Mean Ox Delivery Rate 01/10 0507 98.3 87 20 128/72 96 Venti Mask 35% 01/10 0000 93 Venti Mask 35% 01/09 2120 97.4 96 120/62 93 Venti Mask 35% 01/09 1600 Venti Mask 40% 01/09 1409 90 Venti Mask 40% 01/09 1341 97.7 97 18 120/70 97 Venti Mask 8L 01/09 0800 Venti Mask 40% Intake & Output 01/10 0801/10 0000 01/09 1600 Intake Total 60 360 700 Output Total 150 250 Balance -90 110 700 Intake, IV 300 700 Intake, Oral 60 60 Number 0 Bowel Movements Output, Urine 150 250 Physical Exam General Appearance: Alert, Oriented X3, Cooperative, No Acute Distress Cardiovascular: Regular Rate Lungs: Clear to Auscultation, Normal Air Movement Abdomen: Normal Bowel Sounds, Soft, No Tenderness Neurological: Normal Speech, Strength at 5/5 X4 Ext Extremities: No Cyanosis, No Edema, Normal Pulses Current Medications: Current Medications Sig/Abhi Start time Last Medication Dose Route Stop Time Status Admin Albuterol Sulfate 2 PUF Q4-PRN PRN 01/06 2145 AC INH Alprazolam 0.5 MG AT BEDTIME 01/06 2245 AC 01/09 PO 01/13 2242002 Ampicillin Sodium/ 3,000 MG Q6 01/09 1200 AC 01/10 Sulbactam Sodium IV 0459 Sodium Chloride 100 ML Aspirin 81 MG QPM 01/07 2100 AC 01/09 PO 2002 Citalopram 10 MG DAILY 01/07 900 AC 01/09 Hydrobromide PO 816 Enoxaparin Sodium 40 MG DAILY 01/07 09 AC 01/09 SC 0817 Levothyroxine Sodium 0.05 MG DAILY 01/07 09 AC 01/09 PO 0817 Methylprednisolone 40 MG Q12 01/09 0930 AC 01/09 IV 2003 Naproxen 500 MG Q6PRN PRN 01/08 1400 AC 01/08 PO 1353 Omeprazole 40 MG DAILY AC 01/07 0700 AC 01/10 PO 0459 Oxycodone/ 1 TAB Q4P PRN 01/06 2030 DC 01/08 Acetaminophen PO 09 Polyethylene Glycol 17 GM DAILY 01/07 0900 AC 01/08 PO 0855 Senna/Docusate Sodium 1 TAB QPM 01/07 2100 AC 01/09 PO 2002 Sodium Chloride 1,000 ML Q13H 01/07 1415 AC 01/09 IV 2317 Last 24 Hrs of Lab/Jorge A Results Last 24 Hrs of Labs/Mics: Laboratory Tests 01/09/18 1040: Anion Gap 4 L, Estimated GFR > 60, BUN/Creatinine Ratio 25.0 01/09/18 1028: CBC w Diff NO MAN DIFF REQ, RBC 3.35 L, MCV 95.8, MCH 30.5, MCHC 31.9 L, RDW 18.3 H, MPV 7.0 L, Gran % 69.4, Lymphocytes % 9.8 L, Monocytes % 10.3 H, Eosinophils % 8.9 H, Basophils % 1.6, Absolute Granulocytes 3.7, Absolute Lymphocytes 0.5 L, Absolute Monocytes 0.5, Absolute Eosinophils 0.5, Absolute Basophils 0.1 Microbiology 01/09 1142 BLOOD: Blood Culture - RECD 01/09 104 BLOOD: Blood Culture - RECD 01/09 929 LOWER RESP: Respiratory Culture - COLB 01/09 929 LOWER RESP: Gram Stain - COLB Assessment/Plan Assessment: 82-year-old woman past medical history of COPD on 1.5 L home oxygen non-Hodgkin' s lymphoma status post chemo and radiation therapy with complications of right eye blindness and decreased sensation of right side of face. Past medical history of lung nodule, salivary carcinoma, anxiety, and hypothyroidism who presents with chief complaint of back pain. CT scan showed L2 fracture unchanged since 2016 and new L1 fracture, and advanced osteoporosis. Patient admitted to general med floor. Pain is being treated with Percocet, and now with Naprosyn. Patient is desatted, requiring an increase in oxygen to 40% on mask. In context of acute exacerbation, chest x-ray ordered. Problem list: -Asymptomatic bacteriuria -COPD, on 1.5 L home oxygen Plan: Continue on pain medications. COntinue empiric ABX of unasyn 3g q6 IV for aspiration pna. Pt remained afebrile overnight. Swallow eval recommended puree/honey thick nectar diet. Will advance as toelrated. PT eval suggests short-term rehab, will continue assess as hospital course goes DVT prophylaxis: ALPS and Lovenox Patient is DNR/DNI Problem List: 1. Compression fracture of first lumbar vertebra Pain Ratin Pain Location: see AP Pain Goal: Remain pain free Pain Plan: see AP Tomorrow's Labs & Rationales: CBC/BEP Chele Leblanc MD 01/10/18 1724: Attending MD Review Statement Attending Statement Attending MD Statement: examined this patient, discuss w/resident/PA/ESL TUTOR, agreed w/resident/PA/ESL TUTOR, reviewed EMR data (avail) Attending Assessment/Plan: 82F PMH COPD on 1.5L of home O2, Non Hodgkins Lymphoma status post chemo and radiation therapy in 2016 with complications of right eye blindness and decreased sensation on right side of face, history of lung nodule, salivary carcinoma, anxiety and hypothyroidism admitted for acute L2 compression fracture and chronic L1 compression fracture, course complicated by lethargy leading to aspiration bilateral lower lobe pneumonia increased oxygen requirements, now on Unasyn and Solumedrol. Improving today. Alert and breathing comfortably on 6L NC. Afebrile, stable vitals. WBC 2.6 today. Cultures negative. 1. Acute compression fracture of L2 2. Acute hypoxemic respiratory failure 3. Bilateral lower lobe aspiration pneumonia 4. Lethargy 5. COPD exacerbation Plan - Continue on general medicine - Continue Unasyn - Continue Solumedrol 40mg q12h, switch to Prednisone tomorrow - Nebulizer treatments, TRC - Sputum culture - IR consult for vertebral augmentation on Friday - Avoid sedating agents - Continue home medications - Tylenol for pain - DVT PPx
[2018-01-10 08:27] LABS: ABSOLUTE BASOPHIL COUNT 0 /CUMM (0.0-0.2); ABSOLUTE EOSINOPHIL COUNT 0 /CUMM (0.0-0.7); ABSOLUTE GRANULOCYTE CT 2.1 /CUMM (1.4-6.5); ABSOLUTE LYMPH COUNT 0.3 /CUMM (1.2-3.4); ABSOLUTE MONOCYTE COUNT 0.1 /CUMM (0.10-0.60)
[2018-01-10 09:01] LABS: BASOPHIL % 0.3 % (0.0-2.0); EOSINOPHIL % 0.1 % (0-5); HEMATOCRIT 31.5 % (37-47); MEAN CORPUSCULAR HGB 30.5 PG (27.0-31.0); MEAN CORPUSCULAR HGB CONC 32.5 G/DL (33.0-37.0); MEAN CORPUSCULAR VOLUME 93.8 FL (81.0-99.0); MEAN PLATELET VOLUME 7.1 FL (7.4-10.4); PLATELET COUNT 264 /CUMM (130-400); RBC DISTRIBUTION WIDTH 18.3 % (11.5-14.5); RED BLOOD CELL CT 3.36 /CUMM (4.20-5.40)
[2018-01-10 09:04] LABS: WHITE BLOOD CELL COUNT 2.6 /CUMM (4.8-10.8)
[2018-01-10 09:13] LABS: GRANULOCYTE % 82.8 % (42.2-75.2)
[2018-01-10 14:40] VITALS: BP 118/72
[2018-01-10 21:34] VITALS: BP 152/64
[2018-01-11 06:33] VITALS: BP 158/91
[2018-01-11 09:13] LABS: ABSOLUTE BASOPHIL COUNT 0 /CUMM (0.0-0.2); ABSOLUTE EOSINOPHIL COUNT 0 /CUMM (0.0-0.7); ABSOLUTE LYMPH COUNT 0.3 /CUMM (1.2-3.4); ABSOLUTE MONOCYTE COUNT 0.5 /CUMM (0.10-0.60); MEAN PLATELET VOLUME 6.8 FL (7.4-10.4)
[2018-01-11 09:24] LABS: ABSOLUTE GRANULOCYTE CT 3.7 /CUMM (1.4-6.5); BASOPHIL % 0 % (0.0-2.0); EOSINOPHIL % 0.2 % (0-5); GRANULOCYTE % 82.2 % (42.2-75.2); HEMATOCRIT 32.5 % (37-47); MEAN CORPUSCULAR HGB 30.5 PG (27.0-31.0); MEAN CORPUSCULAR HGB CONC 32.3 G/DL (33.0-37.0); MEAN CORPUSCULAR VOLUME 94.3 FL (81.0-99.0); PLATELET COUNT 327 /CUMM (130-400); RBC DISTRIBUTION WIDTH 18.6 % (11.5-14.5); RED BLOOD CELL CT 3.44 /CUMM (4.20-5.40); WHITE BLOOD CELL COUNT 4.5 /CUMM (4.8-10.8)
--- NOTE | 2018-01-11 11:56 | PN- Housestaff ---
See Addendum Subjective Follow-up For: Lumbar fracture Newly developed acute on chronic hypoxic respiratory failure Complaints: pain scale (0-10) (7) Subjective: Patient seen and examined at the bedside. Patient has been weaned from Ventimask, and patient no longer complains of difficulty breathing. Patient does complain of some pain in back. Review of Systems Constitutional: Reports: no symptoms, see HPI. Musculoskeletal: Reports: back pain. Objective Last 24 Hrs of Vital Signs/I&O Vital Signs Date Time Temp Pulse Resp B/P B/P Pulse O2 O2 Flow FiO2 Mean Ox Delivery Rate 01/11 0920 95 Nasal 6.0L Cannula 01/11 0800 98 Nasal 6.0L Cannula 01/11 0633 97.5 79 20 158/91 100 Nasal 6.0L Cannula 01/11 0000 92 Nasal 6.0L Cannula 01/10 2134 97.3 91 20 152/64 100 01/10 1600 95 Nasal 6.0L Cannula 01/10 1440 97.8 62 20 118/72 94 Nasal 6.0L Cannula Intake & Output 01/11 1600 01/11 0800 01/11 0000 Intake Total 660 885 Output Total Balance 660 885 Intake, IV 600 525 Intake, Oral 60 360 Number 1 1 Bowel Movements Physical Exam General Appearance: Alert, Cooperative, No Acute Distress, disoriented to person , oriented to place and self Skin: No Rashes, No Breakdown Skin Temp/Moisture Exam: Warm/Dry HEENT: Atraumatic, PERRLA, EOMI Neck: Supple Lymphatic: Axillary nl, Cervical nl Cardiovascular: Regular Rate, Normal S1, Normal S2, No Murmurs Lungs: Clear to Auscultation, Normal Air Movement, accessory muscles used for breathing Abdomen: Soft, No Tenderness Neurological: Strength at 5/5 X4 Ext, Sensation Intact, slow speech compared to last week Extremities: No Cyanosis, No Edema, Normal Pulses Assessment/Plan Assessment: 82-year-old woman past medical history of COPD on 1.5 L home oxygen non-Hodgkin' s lymphoma status post chemo and radiation therapy with complications of right eye blindness and decreased sensation of right side of face. Past medical history of lung nodule, salivary carcinoma, anxiety, and hypothyroidism who presents with chief complaint of back pain. CT scan showed L2 fracture unchanged since 2016 and new L1 fracture, and advanced osteoporosis. Patient admitted to general med floor. Pain is being treated with Percocet, and now with Naprosyn. Patient is desatted, requiring an increase in oxygen to 40% on mask. In context of acute exacerbation, chest x-ray ordered. Problem list: -Asymptomatic bacteriuria -COPD, on 1.5 L home oxygen Plan: -Continue on pain medications. -Continue empiric ABX of unasyn 3g q6 IV for aspiration pna. Pt remained afebrile overnight. -Swallow eval recommended puree/honey thick nectar diet. Will advance as tolerated. -PT eval suggests short-term rehab, will continue assess as hospital course goes DVT prophylaxis: ALPS and Lovenox Patient is DNR/DNI Problem List: 1. Compression fracture of first lumbar vertebra 2. COPD exacerbation Pain Ratin Pain Location: Lumbar back Pain Goal: Remain pain free Pain Plan: None Tomorrow's Labs & Rationales: CBC, BEP
[2018-01-11 13:57] VITALS: BP 118/68
[2018-01-11 20:56] VITALS: BP 122/72
[2018-01-12 06:58] VITALS: BP 144/71
--- NOTE | 2018-01-12 07:22 | PN- Housestaff ---
See Addendum Subjective Follow-up For: Lumbar fracture, acute on chronic hypoxemic and hypercarbic respiratory failure Complaints: no complaints Subjective: Patient was seen and examined at the bedside. Patient was more lethargic today, but did not have increased work of breathing. O2 sats were checked with pulse oximeter and found to be 99% on 6 L. Oxygen was turned down to 3 L, and patient desatted to mid 40s. CTA was ordered and patient was started on BiPAP. Review of Systems Constitutional: Reports: no symptoms. Objective Last 24 Hrs of Vital Signs/I&O Vital Signs Date Time Temp Pulse Resp B/P B/P Pulse O2 O2 Flow FiO2 Mean Ox Delivery Rate 01/12 1459 97.7 86 18 136/74 92 CPAP 01/12 1434 91 Venti Mask 40% 01/12 1403 90 Venti Mask 45% 01/12 1401 78 93 01/12 1200 86 94 01/12 1149 94 BIPAP 01/12 0930 94 Venti Mask 01/12 0658 98.0 91 18 144/71 92 01/12 0000 Nasal 6.0L Cannula 01/11 2056 97.9 95 16 122/72 96 Intake & Output 01/12 1600 01/12 0800 01/12 0000 Intake Total 900 820 550 Output Total Balance 900 820 550 Intake, IV 600 700 310 Intake, Oral 300 120 240 Number 1 2 Bowel Movements Physical Exam General Appearance: Cooperative, No Acute Distress, not alert or oriented Skin: No Rashes, No Breakdown Skin Temp/Moisture Exam: Warm/Dry HEENT: Atraumatic, unable to assess eyes; patient would not open eyes Neck: Supple, No JVD, No thryomegaly Cardiovascular: Regular Rate, Normal S1, Normal S2, No Murmurs Lungs: Clear to Auscultation, Normal Air Movement Abdomen: Normal Bowel Sounds, Soft, No Tenderness Neurological: Normal Tone, decreased speech Extremities: No Clubbing, No Cyanosis, No Edema, Normal Pulses Assessment/Plan Assessment: Patient is an 82-year-old female, previous heavy smoker, with complicated past medical history including 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 Problem list/plan: Acute on chronic hypoxemic and hypercarbic respiratory failure still retaining CO2 Acute exacerbation of COPD Possible pneumonia Fracture of L1 vertebra breathing abnormalities Problem List: 1. Compression fracture of first lumbar vertebra 2. COPD exacerbation 3. Acute and chronic respiratory failure 4. Pneumonia Pain Ratin Pain Location: none Pain Goal: Remain pain free Pain Plan: conservative management as appropriate Tomorrow's Labs & Rationales: no labs Discharge Plan Discharge Disposition: STR/NH Stable for Discharge? No Anticipated Discharge (Day): two days
[2018-01-12 08:17] LABS: ABSOLUTE BASOPHIL COUNT 0 /CUMM (0.0-0.2); ABSOLUTE EOSINOPHIL COUNT 0.2 /CUMM (0.0-0.7); ABSOLUTE GRANULOCYTE CT 4.4 /CUMM (1.4-6.5); ABSOLUTE LYMPH COUNT 0.7 /CUMM (1.2-3.4); ABSOLUTE MONOCYTE COUNT 0.8 /CUMM (0.10-0.60); BASOPHIL % 0.3 % (0.0-2.0); EOSINOPHIL % 2.5 % (0-5); GRANULOCYTE % 73.1 % (42.2-75.2); HEMATOCRIT 30.8 % (37-47); MEAN CORPUSCULAR HGB 30.7 PG (27.0-31.0); MEAN CORPUSCULAR HGB CONC 32.5 G/DL (33.0-37.0); MEAN CORPUSCULAR VOLUME 94.6 FL (81.0-99.0); PLATELET COUNT 305 /CUMM (130-400); RBC DISTRIBUTION WIDTH 18.3 % (11.5-14.5); RED BLOOD CELL CT 3.25 /CUMM (4.20-5.40)
[2018-01-12] MEDS ORDERED: AMOX-CLAV 875-1 EACH PO (09:33)
--- NOTE | 2018-01-12 09:35 | Discharge Summary ---
Visit Information Visit Dates Admission Date: 01/06/18 Discharge Date: 01/18/2018 Hospital Course Course Attending Physician: Adan Baxter MD Primary Care Physician: Beena Mcdaniel APRN Hospital Course: 80 year woman from home, with past medical history of COPD on 1.5L of home O2, Non Hodgkins Lymphoma status post chemo and radiation therapy in 2016 with complications of right eye blindness and decreased sensation on right side of face, history of lung nodule, salivary carcinoma, anxiety and hypothyroidism brought in for evaluation of worsening back pain found to have L2 compression fracture is unchanged compared to 01/25/2016. A new compression fracture of the L1 vertebral body exhibits approximately 35% anterior height reduction. The lumbar vertebral alignment is maintained. Problem List #L1 compression fracture #COPD exacerbation w. acute on chronic hypoxemic & hypercarbic respiratory failure #Aspiration PNA #Increasing right lung lesion w/ Hx of lung cancer #Bilateral pleural effusion, likely 2/2 malignancy #PMHx On admission, patient was started on empiric treatment for COPD exacerbation with solumedrol and azithromycin. Patient improved however during Oxygen weaning process, she became desat and possibly aspirated oral content and resulted in aspiration PNA. ABx treatment was administered and monitored on breathing status with all supportive care. Chest CTA revealed bilateral pleural effusion with previously discovered right lung lesion had increased in size. Pulmonology consult recommended IR biopsy for further evaluation however this could be a risky procedure with patient's underlying emphysema that would resulted in pneumothorax, and based on previous hx of lung cancer, the biopsy result may align with malignancy. Discussion with patient and family member was carried out and reached agreement for palliative consult and home hospice. Patient was discharged with home Oxygen setup and palliative treatment plan. Speech therapist recommended to continue with puree/thick nectar diet. Allergies: Coded Allergies: STATINS (UNKNOWN PT DOES NOT REMEMBER 11/22/17) codeine (HEADACHES 05/24/17) Pertinent Lab Results: Echocardiograph CONCLUSIONS Normal size left ventricle. Moderate concentric left ventricular hypertrophy. Normal left ventricular ejection fraction visually estimated at > 60%. Abnormal relaxation filling pattern of the left ventricle for age (stage 1 diastolic dysfunction). Mild mitral regurgitation. Mild mitral annular calcification. Mild aortic stenosis. Mild aortic regurgitation. Trace tricuspid regurgitation. 3.8 cm dilated aortic root. Deondre Zepeda M.D. SERVICE DATE: 01/12/18 EXAM TYPE: CAT - CTA CHEST-PULMON IMPRESSION: 1. No evidence for pulmonary embolus. 2. A spiculated masslike opacity in the right upper lobe measures 2.4 cm, extending to a focal area of pleural thickening laterally. This is new or increased in size compared to the 2016 CT. Neoplastic lesion with pleural extension is suspected. Some adjacent pleural thickening in the apex is relatively unchanged. 3. Several additional pulmonary nodules on the right and a chronic pleural parenchymal opacity in the left upper lobe are stable. 4. There are new or increased bilateral pleural effusions, partially loculated at the left lung base. 5. There is increased atelectasis and consolidation at both lung bases. 6. Extensive emphysematous changes throughout as previously. VTE: negative SERVICE DATE: 01/06/18 EXAM TYPE: CAT - CT ABD & PELVIS W/O IV CONTRAS IMPRESSION: 1. No acute findings along the urinary tracts. No hydronephrosis or perinephric edema. A 0.3 cm nonobstructing calculus is present within the upper pole of the left kidney. 2. Atherosclerotic disease of the abdominal aorta without aneurysm. 3. Diffuse osteoporosis. The severity of the L2 compression fracture is unchanged compared to 01/25/2016. A new compression fracture of the L1 vertebral body exhibits approximately 35% anterior height reduction. The lumbar vertebral alignment is maintained. 4. Colonic diverticulosis without diverticulitis. 5. Centrilobular emphysema within the visualized lung bases. Disposition Summary Disposition Principal Diagnosis: see above Additional Diagnosis: as above Discharge Disposition: hospice - home Discharge Instructions General Discharge Information Code Status: Hospice Patient's Diet: Puree/[place] as tolerated Patient's Activity: Bedbound Follow-Up Instructions/Appts: - Please continue home palliative/hospice care. Medications at Discharge Discharge Medications: Continue taking these medications: Levothyroxine Sodium (Levoxyl) 50 MCG TABLET 1 Tablet ORAL DAILY Comments: LAST GIVEN 01/18/18 @ 0820 Umeclidinium [place] (Incruse Ellipta) 62.5 MCG BLST.W.DEV 1 PUFF ORAL DAILY Qty = 90 Comments: . Citalopram Hydrobromide (Citalopram HBr) 10 MG TABLET 1 Tablet ORAL DAILY Instructions: . Comments: LAST GIVEN 01/18/18 @ 0820 Albuterol Sulfate (Proair Hfa) 90 MCG HFA.AER.AD 2 Puff Inhale through mouth EVERY 4-6 HOURS NEEDED as needed for Shortness of Breath Qty = 1 Comments: . Omeprazole (Omeprazole) 20 MG CAPSULE.DR 40 Milligram ORAL DAILY BEFORE BREAKFAST Qty = 30 Polyethylene Glycol 3350 (Miralax) 17 GRAM/DOSE POWDER 1 Units ORAL DAILY Qty = 14 Sennosides/Docusate Sodium (Senna S Tablet) 8.6 MG-50 MG TABLET 1 Tablet ORAL Every night Start taking the following new medications: Morphine Sulfate (Morphine Sulfate Elixir 10mg/5ml) 10 MG/5 ML SOLUTION 2.5 Milligram ORAL EVERY SIX HOURS Qty = 30 No Refills Instructions: . Comments: . Morphine Sulfate (Morphine Sulfate Elixir 10mg/5ml) 10 MG/5 ML SOLUTION 2 Milligram ORAL EVERY 2 HOURS NEEDED as needed for PAIN/SHORTNESS OF BREATH Qty = 10 No Refills Instructions: . Comments: .. Polyethylene Glycol 3350 (Miralax) 17 GRAM/DOSE POWDER 17 Gram ORAL DAILY Qty = 30 No Refills Comments: . Sennosides/Docusate Sodium (Senna Plus Tablet) 8.6 MG-50 MG TABLET 1 Tablet ORAL Every night Qty = 30 No Refills Melatonin (Melatonin) 5 MG TABLET 5 Milligram ORAL AT BEDTIME Qty = 30 No Refills Comments: . Alprazolam (Alprazolam) 0.5 MG TABLET 0.5 Milligram ORAL AT BEDTIME as needed for SLEEP Qty = 7 No Refills Comments: .. The following medications have been changed: Old: Lorazepam (Lorazepam) 0.5 MG TABLET 1 Tablet ORAL AT BEDTIME Qty = 30 New: Lorazepam (Lorazepam) 0.5 MG TABLET 1 Tablet ORAL THREE TIMES DAILY as needed for ANXIETY Qty = 30 Copies To: Beena Mcdaniel APRN
--- NOTE | 2018-01-12 11:40 | Cons- Pulmonary ---
General Information and HPI Consulting Request Date of Consult: 01/12/18 Requested By: Dr. Baxter Reason for Consult: COPD and hypoxia Source of Information: patient, old records Exam Limitations: no limitations History of Present Illness: The patient is an 82 year old female well known to me from previous inpatient and outpatient visits. 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 Allergies/Medications Allergies: Coded Allergies: STATINS (UNKNOWN PT DOES NOT REMEMBER 11/22/17) codeine (HEADACHES 05/24/17) Home Med List: Albuterol Sulfate (Proair Hfa) 90 MCG HFA.AER.AD 2 PUF INH Q4-6 PRN PRN Shortness of Breath Amoxicillin/Clavulanate Potass (Amox-Clav 875-125 MG Tablet) 875 MG-125 MG TABLET 875 MG PO Q12 Aspiration PNA Aspirin (Aspirin*) 81 MG TAB.CHEW 1 TAB PO QPM HEART HEALTH (Reported) Citalopram Hydrobromide (Citalopram HBr) 10 MG TABLET 1 TAB PO DAILY DEPRESSION (Reported) Levothyroxine Sodium (Levoxyl) 50 MCG TABLET 1 TAB PO DAILY THYROID (Reported ) Lorazepam 0.5 MG TABLET 1 TAB PO AT BEDTIME anxiety (Reported) Omeprazole 20 MG CAPSULE.DR 40 MG PO DAILY AC gastric protection Polyethylene Glycol 3350 (Miralax) 17 GRAM/DOSE POWDER 1 UNITS PO DAILY constipation Sennosides/Docusate Sodium (Senna S Tablet) 8.6 MG-50 MG TABLET 1 TAB PO QPM CONSTIPATION (Reported) Umeclidinium Glady (Incruse Ellipta) 62.5 MCG BLST.W.DEV 1 PUFF PO DAILY COPD (Reported) Current Medications: Current Medications Sig/Abhi Start time Last Medication Dose Route Stop Time Status Admin Albuterol Sulfate 2 PUF Q4-PRN PRN 01/06 2145 AC 01/12 INH 0614 Alprazolam 0.5 MG AT BEDTIME 01/06 2245 AC 01/11 PO 01/13 Amoxicillin/ 875 MG Q12 01/12 09 AC Clavulanate Potassium PO Ampicillin Sodium/ 3,000 MG Q6 01/09 1200 DC 01/12 Sulbactam Sodium IV 0617 Sodium Chloride 100 ML Aspirin 81 MG QPM 01/07 2100 AC 01/11 PO 2016 Citalopram 10 MG DAILY 01/07 0900 AC 01/12 Hydrobromide PO 075 Enoxaparin Sodium 40 MG DAILY 01/07 09 AC 01/12 SC 0754 Levothyroxine Sodium 0.05 MG DAILY 01/07 09 AC 01/12 PO 075 Melatonin 5 MG AT BEDTIME 01/12 0100 AC 01/12 PO 0118 Methylprednisolone 40 MG Q12 01/09 0930 DC 01/11 IV 0815 Naproxen 500 MG Q6PRN PRN 01/08 1400 AC 01/12 PO 0615 Omeprazole 40 MG DAILY AC 01/07 0700 AC 01/12 PO 0617 Polyethylene Glycol 17 GM DAILY 01/07 900 AC 01/12 PO 075 Prednisone 60 MG DAILY 01/12 900 AC PO Senna/Docusate Sodium 1 TAB QPM 01/07 2100 AC 01/11 PO 2016 Sodium Chloride 1,000 ML Q13H 01/07 1415 AC 01/11 IV 2016 Past History Travel History Traveled to [place] past 21 day No Medical History Blood Transfusion Hx: Yes Neurological: NONE EENT: NONE Cardiovascular: hypertension, hyperlipidemia Respiratory: COPD, WEARS 2L AT BASELINE Gastrointestinal: ERCP Hepatic: NONE Renal: NONE Musculoskeletal: NONE Psychiatric: anxiety Endocrine: hypothyroidism Blood Disorders: NONE Cancer(s): NON HODGKINS LYMPHOMA, MELANOMA, SALIVARY CARCINOMA [employer]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 Home Who Do You Live With? Sister Services at Home: Home Health Aide Primary Language: Danish Smoking Status: Former Smoker ETOH Use: denies use Illicit Drug Use: denies illicit drug use Functional Ability ADLs Independent: dressing, eating, toileting, bathing. Ambulation: walker Exam & Diagnostic Data Last 24 Hrs of Vital Signs/I&O Vital Signs Date Time Temp Pulse Resp B/P B/P Pulse O2 O2 Flow FiO2 Mean Ox Delivery Rate 01/12 658 98.0 91 18 144/71 92 01/12 0000 Nasal 6.0L Cannula 01/12 2056 97.9 95 16 122/72 96 01/11 1357 98.1 58 20 118/68 97 Nasal 2.0L Cannula Intake & Output 01/12 1600 01/12 0800 01/12 0000 Intake Total 820 550 Output Total Balance 820 550 Intake, IV 700 310 Intake, Oral 120 240 Number 2 Bowel Movements Physical Exam General Appearance: awake, cachetic, lethargic, moderate distress, on BIPAP Head: atraumatic, normal appearance Neck: supple Respiratory: quiet respiration, wheezing Cardiovascular: heart sounds distant Gastrointestinal: normal bowel sounds, soft, non-tender Extremities: no edema Skin: intact, normal color, warm/dry Last 48 Hrs of Labs/Jorge A: Laboratory Tests 01/12/18 1005: pH 7.28 *L, pCO2 80 *H, pO2 74 L, HCO3 37 H, ABG O2 Sat (Measured) 93.0 L, P- 50 (Temp Corrected) N, Carboxyhemoglobin 0.7 L, O2 Concentration % 55%, Temperature 98.0, O2 Delivery Method VENTI-MASK, Phlebotomy Draw Site LEFT RADIAL 01/12/18 0655: Anion Gap 4 L, Estimated GFR > 60, BUN/Creatinine Ratio 36.7 H, CBC w Diff NO MAN DIFF REQ, RBC 3.25 L, MCV 94.6, MCH 30.7, MCHC 32.5 L, RDW 18.3 H, MPV 7.0 L, Gran % 73.1, Lymphocytes % 11.0 L, Monocytes % 13.1 H, Eosinophils % 2.5, Basophils % 0.3, Absolute Granulocytes 4.4, Absolute Lymphocytes 0.7 L, Absolute Monocytes 0.8 H, Absolute Eosinophils 0.2, Absolute Basophils 0 01/11/18 0826: Anion Gap 7, Estimated GFR > 60, BUN/Creatinine Ratio 20.0, CBC w Diff NO MAN DIFF REQ, RBC 3.44 L, MCV 94.3, MCH 30.5, MCHC 32.3 L, RDW 18.6 H, MPV 6.8 L , Gran % 82.2 H, Lymphocytes % 6.9 L, Monocytes % 10.7 H, Eosinophils % 0.2, Basophils % 0, Absolute Granulocytes 3.7, Absolute Lymphocytes 0.3 L, Absolute Monocytes 0.5, Absolute Eosinophils 0, Absolute Basophils 0 Diagnostic Data Other Results CTA: Assessment/Plan Impression/Plan: 1. Acute on chronic hypoxemic and hypercarbic respiratory failure. 2. AECOPD. 3. Possible pneumonia. Recommendations: * Await results of CTA. * Continue BIPAP. * Await repeat ABG in 1 hour after she has been on BIPAP. * Follow up culture results. * Continue empiric antibiotic therapy. * Continue nebulizer treatments/TRC. * Continue all supportive care. * Avoid any sedating agents. * Will provide further recommendations based upon testing results. Continue care for now. * Thank you for the consult. Will follow and provide recommendations as necessary. Please call with any questions. Consult Acknowledgment - Thank you for your consult request.
[2018-01-12 14:59] VITALS: BP 136/74
--- NOTE | 2018-01-12 16:55 | CT SCAN REPORT ---
EXAMINATION: CT ANGIOGRAM OF THE CHEST WITH AND WITHOUT CONTRAST (CT PULMONARY ANGIOGRAM FOR PE) CLINICAL INFORMATION: Reason for Study:
Signs Symptoms: SUDDEN ONSET DESATTING
: TX FOR ASPIRATION PNA
Presumptive Dx: r/o PE
COMPARISON: CT of the chest dated 01/25/2016. Chest x-ray dated 01/09/2018. TECHNIQUE: Prior to contrast administration, noncontrast localization images were obtained. Subsequently, multidetector volumetric imaging was performed from the thoracic inlet to below the diaphragms following the administration of 60 mL Optiray 320 intravenous contrast. No contrast reaction reported. Partial extravasation of contrast upon injection was reported and extravasation protocol is reported to have been followed. Sagittal, coronal, and MIP oblique sagittal reformatted images were obtained on the CT workstation, uploaded to PACS, and reviewed. Total exam dose-length product 98.6 mGy-cm. FINDINGS: QUALITY OF STUDY/CONTRAST BOLUS: Satisfactory PULMONARY ARTERIES: No central or segmental pulmonary emboli. THORACIC AORTA: Ectatic ascending thoracic aorta is approximately 3.8 cm unchanged from prior study. There is extensive atherosclerotic calcification LUNG: There is extensive emphysematous change throughout, most pronounced in the upper lobes. Right: A spiculated masslike opacity in the lateral periphery of the right upper lobe, is more prominent compared to the previous exam, currently measuring approximately 2.4 cm in size. This extends laterally to focal area of pleural thickening measuring 3.0 x 1.0 cm increased in size. (Series 2 #185). A irregular pleural-based opacity measuring 2.4 x 1.1 cm the lateral periphery of the right lung apex (series 2, image 105) is similar to prior.. A spiculated nodule in the lateral periphery of the right upper lobe measures 0.6 cm (series 2, image 201) This is smaller. A 0.4 cm nodule in the anterior aspect of the right lower lobe is unchanged (series 2, image 372). A 0.6 cm nodule in the right middle lobe is unchanged (image 299). There is increased consolidation and atelectasis in the right lower lobe posteriorly. On the left, a wedge-shaped area of parenchymal opacity containing air bronchograms extends from the suprahilar region to the pleural surface in the left upper lobe and is not significantly changed in appearance. Associated pleural thickening is unchanged. (Series 2, image 141 there is some increased atelectasis in the posterior aspect of the left lower lobe PLEURA: There is a moderate-sized right pleural effusion which is increased in size from 01/25/2016. There is a moderate sized left pleural effusion with lobulated contour at the lung base compressing portion of the left lower lobe. This has increased in size MEDIASTINUM: Normal heart size. No pericardial effusion. No hilar or mediastinal lymphadenopathy. No evidence of septal bowing or right heart strain. CHEST WALL/AXILLA: No axillary or internal mammary lymphadenopathy. OSSEOUS STRUCTURES: Multiple compression fractures are present in the thoracic and lumbar spine. There is a chronic severe compression fracture of the T6 vertebra increased compression fracture of the T9 vertebra and new compression fracture of the L1 vertebra since the 2016 study. Chronic compression fracture of the L2 vertebra unchanged. UPPER ABDOMEN: Unremarkable. No reflux of contrast into the hepatic veins to suggest elevated right heart pressures. IMPRESSION: 1. No evidence for pulmonary embolus. 2. A spiculated masslike opacity in the right upper lobe measures 2.4 cm, extending to a focal area of pleural thickening laterally. This is new or increased in size compared to the 2016 CT. Neoplastic lesion with pleural extension is suspected. Some adjacent pleural thickening in the apex is relatively unchanged. 3. Several additional pulmonary nodules on the right and a chronic pleural parenchymal opacity in the left upper lobe are stable. 4. There are new or increased bilateral pleural effusions, partially loculated at the left lung base. 5. There is increased atelectasis and consolidation at both lung bases. 6. Extensive emphysematous changes throughout as previously. VTE: negative
--- NOTE | 2018-01-12 17:42 | PN- Att Addend ---
Attending Addendum Attending Brief Note I reviewed the patient's chart for follow-up. The patient underwent CT angiogram which showed the followin. No evidence for pulmonary embolus. 2. A spiculated masslike opacity in the right upper lobe measures 2.4 cm, extending to a focal area of pleural thickening laterally. This is new or increased in size compared to the 2016 CT. Neoplastic lesion with pleural extension is suspected. Some adjacent pleural thickening in the apex is relatively unchanged. 3. Several additional pulmonary nodules on the right and a chronic pleural parenchymal opacity in the left upper lobe are stable. 4. There are new or increased bilateral pleural effusions, partially loculated at the left lung base. 5. There is increased atelectasis and consolidation at both lung bases. 6. Extensive emphysematous changes throughout as previously. VTE: negative Note: The findings are concerning for possible increasing malignancy. At this time, I would recommend an ultrasound-guided thoracentesis to be performed by interventional radiology. The effusion appears larger on the right side however she does have loculations appear on the left. I will defer to IR as to which side they are more comfortable performing thoracentesis on. The patient will have to have coags checked prior to the procedure. In addition to coags, please check a BNP and echocardiogram. We need to consider the possibility of volume overload in the setting of bilateral effusions as well.
[2018-01-12 22:14] VITALS: BP 108/60
[2018-01-13 06:32] VITALS: BP 150/90
--- NOTE | 2018-01-13 06:43 | PN- Housestaff ---
Phil Bennett 01/13/18 0643: Subjective Follow-up For: Lumbar fracture, acute on chronic hypoxemic and hypercarbic respiratory failure Complaints: no complaints Subjective: Patient was seen and examined at bedside. Patient has been transitioned to BiPAP following a desaturation yesterday and per pulmonary's recommendations. Patient's sister is at the bedside. Patient complains of a dry mouth and would like to be able to eat, but is remaining n.p.o. until after swallow eval. Review of Systems Constitutional: Reports: no symptoms. Objective Last 24 Hrs of Vital Signs/I&O Vital Signs Date Time Temp Pulse Resp B/P B/P Pulse O2 O2 Flow FiO2 Mean Ox Delivery Rate 01/13 1049 96 Nasal 35% Cannula 01/13 1016 94 Nasal 35% Cannula 01/13 0849 81 96 01/13 0632 97.5 74 20 150/90 96 BIPAP 01/13 0050 69 96 01/13 0000 BIPAP 01/12 2235 80 96 01/12 2214 97.8 80 17 108/60 88 Venti Mask 01/12 1915 95 Venti Mask 40% 01/12 1600 Venti Mask 40% 01/12 1507 Nasal 4.0L Cannula 01/12 1459 97.7 86 18 136/74 92 CPAP 01/12 1434 91 Venti Mask 40% 01/12 1403 90 Venti Mask 45% 01/12 1401 78 93 01/12 1200 86 94 01/12 1149 94 BIPAP Intake & Output 01/13 1600 01/13 0800 07 0000 Intake Total 250 420 Output Total Balance 250 420 Intake, IV 300 Intake, Oral 120 Intake, 250 TPN/PPN Physical Exam General Appearance: Cooperative, Mild Distress, lethargic, not entirely oriented , somewhat confused Skin: No Rashes, No Breakdown Skin Temp/Moisture Exam: Warm/Dry HEENT: Atraumatic, PERRLA, EOMI, mucus membranes dry Neck: Supple, No JVD, No thryomegaly Cardiovascular: Regular Rate, Normal S1, Normal S2, No Murmurs Lungs: minor wheezes Abdomen: Normal Bowel Sounds, Soft, No Tenderness, No Hepatospenomegaly Neurological: lethargy Assessment/Plan Assessment: Patient is an 82-year-old female, previous heavy smoker, with complicated past medical history including 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 Has desaturated over the past couple days, now on intermittent bipap. Chest CTA showed no PE but did show mass in R upper lobe suggestive of lung cancer. Following her stabilization at the hospital here, patient will be referred to her regular oncologist for followup. Problem list/plan: Acute on chronic hypoxemic and hypercarbic respiratory failure suggestive still retaining CO2 -convert to high flow oxygen as able Acute exacerbation of COPD Possible pneumonia -speech and swallow eval (possible aspiration pneumonia) suggest maintaining NPO Fracture of L1 vertebra breathing abnormalities; INR was initially refused by patient's family, but they are now considering Problem List: 1. Compression fracture of first lumbar vertebra 2. Pneumonia 3. COPD exacerbation Pain Ratin Pain Location: none Pain Goal: Remain pain free Pain Plan: none Tomorrow's Labs & Rationales: cbc and bep VeeHector magallonjuni 01/13/18 1222: Attending MD Review Statement Attending Statement Attending MD Statement: examined this patient, discuss w/resident/PA/WELDING MANAGER, agreed w/resident/PA/WELDING MANAGER, discussed with family, reviewed EMR data (avail), discussed with nursing, discussed with case mgmt, reviewed images, amended to note Attending Assessment/Plan: Patient seen/examined bedside. She is NPO for speech/swallow repeat evalaution. Patient received bipap overnight. She is off bipap now and on high flow oxygen. CTA chest no PE with suggestive of increased mass size as compared to 2016 with pulmonary nodules and bilateral pleural effusion. Obtain ECHO, Continue with intermittent bipap as needed. Frequent TRCs. Patient is on prednisone and empiric abx for likely aspiraiton pneumonia. Pulmoanry f/u. IR conuslted for possible pleural tap and recommend to hold IR guided tap until patient stabilises. Family initally declined vertebral augmentation. Patient does have oncologist at [place] and advised to follow up with her regarding CTA chest findings, She had PET scan recently with her oncologist. GI/dvt prophyalxis.
--- NOTE | 2018-01-13 07:17 | PN- Pulmonary ---
Subjective HPI/Critical Care Issues: The patient is awake and confused easily. She is on high flow oxygen to maintain her saturations. She is awaiting thoracentesis. Objective Current Medications: Current Medications Sig/Abhi Start time Last Medication Dose Route Stop Time Status Admin Albuterol Sulfate 3 ML Q4P PRN 01/12 1500 AC INH Albuterol Sulfate 2 PUF Q4-PRN PRN 01/06 2145 AC 01/12 INH 0614 Alprazolam 0.5 MG AT BEDTIME 01/06 2245 AC 01/12 PO 01/13 224 202 Amoxicillin/ 875 MG Q12 01/12 0900 DC Clavulanate Potassium PO Ampicillin Sodium/ 3,000 MG Q6 01/12 1800 AC 01/13 Sulbactam Sodium IV 0036 Sodium Chloride 100 ML Ampicillin Sodium/ 3,000 MG Q6 01/09 1200 DC 01/12 Sulbactam Sodium IV 0617 Sodium Chloride 100 ML Aspirin 81 MG QPM 01/07 2100 AC 01/12 PO 202 Citalopram 10 MG DAILY 01/07 09 AC 01/12 Hydrobromide PO 0754 Enoxaparin Sodium 40 MG DAILY 01/07 09 AC 01/12 SC 0754 Levothyroxine Sodium 0.05 MG DAILY 01/07 09 AC 01/12 PO 0754 Melatonin 5 MG AT BEDTIME 01/12 0100 AC 01/12 PO 202 Naproxen 500 MG .STK-MED ONE 01/12 191 DC PO 01/12 1920 Naproxen 500 MG Q6PRN PRN 01/08 1400 AC 01/12 PO 1923 Omeprazole 40 MG DAILY AC 01/07 07 AC 01/12 PO 0617 Polyethylene Glycol 17 GM DAILY 01/07 09 AC 01/12 PO 075 Prednisone 60 MG DAILY 01/12 900 AC PO Senna/Docusate Sodium 1 TAB QPM 01/07 2100 AC 01/12 PO 202 Sodium Chloride 1,000 ML Q13H 01/07 1415 DC 01/12 IV 1143 Vital Signs & I&O Last 24 Hrs of Vitals and I&O: Vital Signs Date Time Temp Pulse Resp B/P B/P Pulse O2 O2 Flow FiO2 Mean Ox Delivery Rate 01/13 0632 97.5 74 20 150/90 96 BIPAP 01/13 0050 69 96 01/12 2235 80 96 07/09 2214 97.8 80 17 108/60 88 Venti Mask 01/12 1915 95 Venti Mask 40% 01/12 1600 Venti Mask 40% 01/12 1507 Nasal 4.0L Cannula 01/12 1459 97.7 86 18 136/74 92 CPAP 01/12 1434 91 Venti Mask 40% 01/12 1403 90 Venti Mask 45% 01/12 1401 78 93 01/12 1200 86 94 01/12 1149 94 BIPAP 01/12 0930 94 Venti Mask Intake & Output 01/13 0800 01/13 0000 01/12 1600 Intake Total 420 900 Output Total Balance 420 900 Intake, IV 300 600 Intake, Oral 120 300 Number 2 Bowel Movements Exam General Appearance: no apparent distress, awake, comfortable, cachetic Head: atraumatic, normal appearance Neck: supple Respiratory: quiet respiration, decreased breath sounds Cardiovascular: regular rate/rhythm (S1 and S2 heard) Abdomen: normal bowel sounds, soft, non-tender Extremities: no edema Skin: normal color, warm/dry Results Last 24 Hrs of Lab Results: Laboratory Tests 01/12/18 1335: pH 7.38, pCO2 64 *H, pO2 66 L, HCO3 37 H, ABG O2 Sat (Measured) 93.0 L, P-50 (Temp Corrected) N, Carboxyhemoglobin 0.2 L, O2 Concentration % 35%, Respiration Rate 22, O2 Delivery Method BIPAP, Vent Mode ST, Expiratory Pressure 6, Inspiratory Pressure 18, Phlebotomy Draw Site LEFT RADIAL 01/12/18 1005: pH 7.28 *L, pCO2 80 *H, pO2 74 L, HCO3 37 H, ABG O2 Sat (Measured) 93.0 L, P- 50 (Temp Corrected) N, Carboxyhemoglobin 0.7 L, O2 Concentration % 55%, Temperature 98.0, O2 Delivery Method VENTI-MASK, Phlebotomy Draw Site LEFT RADIAL Impression/Plan Impression/Plan Impression/Plan: 1. Acute on chronic hypoxemic and hypercarbic respiratory failure. 2. AECOPD. 3. Possible pneumonia. 4. History of lung cancer, increasing right sided lesion, rule out recurrence. 5. Right greater than left pleural effusion - ? infectious, ? malignant Recommendations: * Continue BIPAP and high flow oxygen as tolerated/needed. * Follow up culture results. * Continue empiric antibiotic therapy. * Continue nebulizer treatments/TRC. * Continue all supportive care. * Avoid any sedating agents. * Will provide further recommendations based upon testing results. Continue care for now. * Discussed procedure with patient and friend - they are willing to proceed with thoracentesis.
[2018-01-13 09:09] LABS: ABSOLUTE BASOPHIL COUNT 0 /CUMM (0.0-0.2); ABSOLUTE EOSINOPHIL COUNT 0.6 /CUMM (0.0-0.7); ABSOLUTE GRANULOCYTE CT 3.8 /CUMM (1.4-6.5); ABSOLUTE LYMPH COUNT 0.6 /CUMM (1.2-3.4); ABSOLUTE MONOCYTE COUNT 0.5 /CUMM (0.10-0.60); BASOPHIL % 0.3 % (0.0-2.0); EOSINOPHIL % 10.7 % (0-5); GRANULOCYTE % 69.3 % (42.2-75.2); HEMATOCRIT 29.5 % (37-47); MEAN CORPUSCULAR HGB CONC 32.7 G/DL (33.0-37.0); MEAN CORPUSCULAR VOLUME 94.8 FL (81.0-99.0); MEAN PLATELET VOLUME 6.8 FL (7.4-10.4); PLATELET COUNT 264 /CUMM (130-400); RBC DISTRIBUTION WIDTH 17.9 % (11.5-14.5); RED BLOOD CELL CT 3.11 /CUMM (4.20-5.40); WHITE BLOOD CELL COUNT 5.6 /CUMM (4.8-10.8)
[2018-01-13 09:15] LABS: PT 11.4 SEC (9.4-12.5)
[2018-01-13 16:00] VITALS: BP 130/74
[2018-01-14 01:24] VITALS: BP 147/73
[2018-01-14 06:19] VITALS: BP 147/88
--- NOTE | 2018-01-14 06:58 | PN- Housestaff ---
Phil Bennett 01/14/18 0657: Subjective Follow-up For: Acute on chronic hypoxic and hypercapnic respiratory failure Complaints: wanted water, but patient was NPO Subjective: Patient was seen and examined at the bedside. Patient remains confused today, but mental status is improving. Patient has been weaned down off of BiPAP to 5 L nasal cannula. No complaints or overnight events reported. Review of Systems Constitutional: Reports: see HPI. Cardiovascular: Reports: no symptoms. Respiratory: Reports: no symptoms. Gastrointestinal: Reports: no symptoms. Objective Last 24 Hrs of Vital Signs/I&O Vital Signs Date Time Temp Pulse Resp B/P B/P Pulse O2 O2 Flow FiO2 Mean Ox Delivery Rate 01/14 1130 93 Nasal 35% Cannula 01/14 0920 94 Nasal 35% Cannula 01/14 0841 94 Nasal 35% Cannula 01/14 0800 Nasal 5.0L Cannula 01/14 0620 93 Nasal 35% Cannula 01/14 0619 97.4 82 18 147/88 94 01/14 0124 97.1 81 18 147/73 96 01/14 0016 97 01/14 0013 97 Nasal 35% Cannula 01/14 0000 Venti Mask 35% 01/13 2208 93 Nasal 35% Cannula 01/13 1910 94 Nasal 35% Cannula 01/13 1710 94 Nasal 35% Cannula 01/13 1600 98.2 90 18 130/74 94 Nasal 35% Cannula 01/13 1410 95 Nasal 35% Cannula Intake & Output 01/14 1600 01/14 0800 01/14 0000 Intake Total 30 Output Total Balance 30 Intake, IV 30 Intake, Oral 0 Number 1 Bowel Movements Physical Exam General Appearance: Alert, Oriented X3 (oriented but confused), Cooperative, Moderate Distress Skin: No Rashes, No Breakdown Skin Temp/Moisture Exam: Warm/Dry HEENT: Atraumatic, PERRLA, EOMI Neck: Supple, No JVD, No thryomegaly Cardiovascular: Regular Rate, Normal S1, Normal S2, No Murmurs Lungs: Clear to Auscultation, Normal Air Movement Abdomen: Normal Bowel Sounds, Soft, No Tenderness, No Hepatospenomegaly Extremities: edema/thrombophlebitis RUE Current Medications: Current Medications Sig/Abhi Start time Last Medication Dose Route Stop Time Status Admin Acetaminophen 650 MG Q6P PRN 01/14 0945 AC 01/14 PO 1103 Acetaminophen 650 MG Q6P PRN 01/14 0945 AC IV Acetaminophen 1,000 MG ONCE ONE 01/13 2115 DC 01/14 N/A 1 UNIT IV 01/13 2129 0637 Acetaminophen 1,000 MG ONCE ONE 01/13 1345 DC 01/13 N/A 1 UNIT IV 01/13 1359 1412 Albuterol Sulfate 3 ML Q4P PRN 01/12 1500 AC 01/14 INH 0841 Albuterol Sulfate 2 PUF Q4-PRN PRN 01/06 2145 AC 01/12 INH 0614 Alprazolam 0.5 MG ONCE ONE 01/13 1345 DC 01/13 PO 01/13 1346 1412 Alprazolam 0.5 MG AT BEDTIME 01/06 2245 DC 01/13 PO 01/13 2244 2055 Ampicillin Sodium/ 3,000 MG Q6 01/12 1800 AC 01/14 Sulbactam Sodium IV 1103 Sodium Chloride 100 ML Aspirin 81 MG QPM 01/07 2100 DC 01/13 PO 205 Citalopram 10 MG DAILY 01/07 900 AC 01/14 Hydrobromide PO 0801 Enoxaparin Sodium 40 MG DAILY 01/07 09 AC 01/14 SC 0801 Levothyroxine Sodium 0.05 MG DAILY 01/07 09 AC 01/14 PO 0801 Melatonin 5 MG AT BEDTIME 01/12 0100 AC 01/13 PO 205 Naproxen 500 MG Q6PRN PRN 01/08 1400 DC 01/13 PO 1839 Pantoprazole Sodium 40 MG DAILY 01/13 0927 AC 01/14 IV 0801 Patient Medication 1 ED ONE ONE 01/14 1230 DC 01/14 Teaching ED 01/14 1231 1225 Polyethylene Glycol 17 GM DAILY 01/07 09 AC 01/12 PO 0754 Prednisone 60 MG DAILY 01/12 09 AC 01/14 PO 0801 Senna/Docusate Sodium 1 TAB QPM 01/07 2100 AC 01/13 PO 205 Tramadol HCl 50 MG Q4 PRN 01/14 1315 AC 01/14 PO 1320 Last 24 Hrs of Lab/Jorge A Results Last 24 Hrs of Labs/Mics: Laboratory Tests 01/14/18 0703: Anion Gap 5, Estimated GFR > 60, BUN/Creatinine Ratio 16.0, CBC w Diff NO MAN DIFF REQ, RBC 3.24 L, MCV 93.9, MCH 30.6, MCHC 32.5 L, RDW 18.3 H, MPV 6.9 L , Gran % 68.9, Lymphocytes % 14.2 L, Monocytes % 13.6 H, Eosinophils % 2.9, Basophils % 0.4, Absolute Granulocytes 3.3, Absolute Lymphocytes 0.7 L, Absolute Monocytes 0.7 H, Absolute Eosinophils 0.1, Absolute Basophils 0 Orders Radiology Findings: Chest CTA showed no PE but did show mass in right upper lobe suggestive of lung cancer. Also demonstrated bilateral lower lobe pleural effusions, questionable for malignant process. Discussion continues regarding thoracentesis. Lines/Diet/Fluids Fluids/Infusions: Unasyn in 130mL per 6 hrs Assessment/Plan Assessment: Patient is an 82-year-old female, previous heavy smoker, with complicated past medical history including 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 Has desaturated over the past couple days, now on intermittent bipap. Chest CTA showed no PE but did show mass in R upper lobe suggestive of lung cancer. Following her stabilization at the hospital here, patient will be referred to her regular oncologist for followup. Problem list/plan: Acute on chronic hypoxemic and hypercarbic respiratory failure and family is discussing potential IR interventions to obtain a sample of the pleural fluid -Poor long-term prognosis, discuss idea of hospice with patient and family pending potential thoraco results Acute exacerbation of COPD Possible pneumonia -speech and swallow eval (possible aspiration pneumonia) suggest switching patient to nectar diet Fracture of L1 vertebra patient's family, but they are now considering DVT prophylaxis: Subcu heparin and ALPS; heparin to be DC'd if INR decides to perform thoracentesis Patient is DNR/DNI Problem List: 1. Compression fracture of first lumbar vertebra 2. COPD exacerbation 3. Lung cancer Pain Ratin Pain Location: none; later developed abdominal pain requiring tramadol Pain Goal: Remain pain free Pain Plan: Tramadol, Tylenol Tomorrow's Labs & Rationales: cbc, bep Adan Baxter 01/14/18 1129: Attending MD Review Statement Attending Statement Attending MD Statement: examined this patient, discuss w/resident/PA/SYSTEM SUPPORT DEVELOPER, agreed w/resident/PA/SYSTEM SUPPORT DEVELOPER, discussed with family, reviewed EMR data (avail), discussed with nursing, discussed with case mgmt, reviewed images, amended to note Attending Assessment/Plan: Patient seen/examined bedside. She is aaox 3 oriented. Speech/swallow repeat evalaution pending. She is off bipap now and on 5L oxygen supplementation. CTA chest no PE but suggestive of increased lung mass size as compared to 2016 with pulmonary nodules and bilateral pleural effusion. Pending ECHO, Continue with intermittent bipap as needed. Frequent TRCs. Patient is on prednisone and empiric abx for likely aspiraiton pneumonia. Pulmoanry on board. Blood cultures remain negaive so far. IR conuslted for possible pleural tap and planned daignostic tap. Follow pleural fluid results. Family initally declined vertebral augmentation. Patient does have oncologist at [place] and advised to follow up with her regarding CTA chest findings, She had PET scan recently with her oncologist. GI/dvt prophyalxis.
--- NOTE | 2018-01-14 07:50 | PN- Pulmonary ---
Subjective HPI/Critical Care Issues: The patient is awake and remains comfused. Her oxygen requirement has improved over the past 24 hours and she is now on nasal cannula. She did not undergo thoracentesis yesterday. She has ongoing shortness of breath however feels better overall. There were no overnight events reported. Objective Current Medications: Current Medications Sig/Abhi Start time Last Medication Dose Route Stop Time Status Admin Acetaminophen 1,000 MG ONCE ONE 01/13 2115 DC 01/14 N/A 1 UNIT IV 01/13 2129 0637 Acetaminophen 1,000 MG ONCE ONE 01/13 1345 DC 01/13 N/A 1 UNIT IV 01/13 1359 1412 Albuterol Sulfate 3 ML Q4P PRN 01/12 1500 AC 01/14 INH 0558 Albuterol Sulfate 2 PUF Q4-PRN PRN 01/06 2145 AC 01/12 INH 0614 Alprazolam 0.5 MG ONCE ONE 01/13 1345 DC 01/13 PO 01/13 1346 1412 Alprazolam 0.5 MG AT BEDTIME 01/06 2245 DC 01/13 PO 01/13 2244 2055 Ampicillin Sodium/ 3,000 MG Q6 01/12 1800 AC 01/14 Sulbactam Sodium IV 0537 Sodium Chloride 100 ML Aspirin 81 MG QPM 01/07 2100 AC 01/13 PO 2051 Citalopram 10 MG DAILY 01/07 900 AC 01/13 Hydrobromide PO 0950 Enoxaparin Sodium 40 MG DAILY 01/07 09 AC 01/13 SC 0950 Levothyroxine Sodium 0.05 MG DAILY 01/07 09 AC 01/13 PO 0950 Melatonin 5 MG AT BEDTIME 01/12 0100 AC 01/13 PO 205 Naproxen 500 MG Q6PRN PRN 01/08 1400 AC 01/13 PO 1839 Omeprazole 40 MG DAILY AC 01/07 07 DC 01/12 PO 0617 Pantoprazole Sodium 40 MG DAILY 01/13 09 AC 01/13 IV 1037 Polyethylene Glycol 17 GM DAILY 01/07 0900 AC 01/12 PO 0754 Prednisone 60 MG DAILY 01/12 0900 AC 01/13 PO 0950 Senna/Docusate Sodium 1 TAB QPM 01/07 2100 AC 01/13 PO 2051 Vital Signs & I&O Last 24 Hrs of Vitals and I&O: Vital Signs Date Time Temp Pulse Resp B/P B/P Pulse O2 O2 Flow FiO2 Mean Ox Delivery Rate 01/14 0620 93 Nasal 35% Cannula 01/14 0619 97.4 82 18 147/88 94 01/14 0124 97.1 81 18 147/73 96 01/14 0016 97 01/14 0013 97 Nasal 35% Cannula 01/14 0000 Venti Mask 35% 01/13 2208 93 Nasal 35% Cannula 01/13 1910 94 Nasal 35% Cannula 01/13 1710 94 Nasal 35% Cannula 01/13 1600 98.2 90 18 130/74 94 Nasal 35% Cannula 01/13 1410 95 Nasal 35% Cannula 01/13 1049 96 Nasal 35% Cannula 01/13 1016 94 Nasal 35% Cannula 01/13 0849 81 96 01/13 0800 94 Nasal 35% Cannula Intake & Output 01/14 0800 01/14 0000 01/13 1600 Intake Total 520 Output Total Balance 520 Intake, IV 280 Intake, Oral 240 Number 2 Bowel Movements Exam General Appearance: no apparent distress, awake, comfortable, cachetic Head: atraumatic, normal appearance Neck: supple Respiratory: quiet respiration, decreased breath sounds Cardiovascular: regular rate/rhythm (S1 and S2 heard) Abdomen: normal bowel sounds, soft, non-tender Extremities: no edema Skin: normal color, warm/dry Results Last 24 Hrs of Lab Results: Laboratory Tests 01/14/18 0703: Anion Gap 5, Estimated GFR > 60, BUN/Creatinine Ratio 16.0, CBC w Diff NO MAN DIFF REQ, RBC 3.24 L, MCV 93.9, MCH 30.6, MCHC 32.5 L, RDW 18.3 H, MPV 6.9 L , Gran % 68.9, Lymphocytes % 14.2 L, Monocytes % 13.6 H, Eosinophils % 2.9, Basophils % 0.4, Absolute Granulocytes 3.3, Absolute Lymphocytes 0.7 L, Absolute Monocytes 0.7 H, Absolute Eosinophils 0.1, Absolute Basophils 0 Impression/Plan Impression/Plan Impression/Plan: 1. Acute on chronic hypoxemic and hypercarbic respiratory failure. 2. AECOPD. 3. Possible pneumonia. 4. History of lung cancer, increasing right sided lesion, rule out recurrence. 5. Right greater than left pleural effusion - ? infectious, ? malignant Recommendations: * Continue oxygen for saturations greater than 92%. * Will give Diamox if bicarbonate levels continue to elevate. * Follow up culture results. * Continue IV Unasyn. * Continue nebulizer treatments/TRC. * Continue all supportive care. * Avoid any sedating agents. * I discussed the plan of care with the house staff in detail. I have made several attempts to contact interventional radiology regarding the possibility of a thoracentesis. I will attempt again later today. Thoracentesis would be helpful from a diagnostic point of view however it will not likely be therapeutic. We will need to consider the risks of the procedure versus the benefits and once again I will discuss this with radiology. * The patient is DNR/DNI. Unfortunately she has a long-term poor prognosis. We will need to consider palliative care consult for the future.
[2018-01-14 08:32] LABS: ABSOLUTE BASOPHIL COUNT 0 /CUMM (0.0-0.2); ABSOLUTE EOSINOPHIL COUNT 0.1 /CUMM (0.0-0.7); ABSOLUTE GRANULOCYTE CT 3.3 /CUMM (1.4-6.5); ABSOLUTE LYMPH COUNT 0.7 /CUMM (1.2-3.4); ABSOLUTE MONOCYTE COUNT 0.7 /CUMM (0.10-0.60); BASOPHIL % 0.4 % (0.0-2.0); EOSINOPHIL % 2.9 % (0-5); GRANULOCYTE % 68.9 % (42.2-75.2); HEMATOCRIT 30.5 % (37-47); MEAN CORPUSCULAR HGB 30.6 PG (27.0-31.0); MEAN CORPUSCULAR HGB CONC 32.5 G/DL (33.0-37.0); MEAN CORPUSCULAR VOLUME 93.9 FL (81.0-99.0); MEAN PLATELET VOLUME 6.9 FL (7.4-10.4); PLATELET COUNT 288 /CUMM (130-400); RBC DISTRIBUTION WIDTH 18.3 % (11.5-14.5); RED BLOOD CELL CT 3.24 /CUMM (4.20-5.40); WHITE BLOOD CELL COUNT 4.8 /CUMM (4.8-10.8)
[2018-01-14 14:16] VITALS: BP 140/80
--- NOTE | 2018-01-14 15:09 | ECHOCARDIOGRAM REPORT ---
RADHA ORTIZ Age: 82 : 1935 Gender: F Exam Date: 01/13/2018 15:46 Exam Location: [address] [place] [address] Ht (in): 63 Wt (lb): 99 BSA: 1.40 BP: 150 / 90 Ordering Physician: Oleg Patel MD Referring Physician: Wendi Ward MD Technologist: Kathie Montaño [facility] Room Number: 212 Indications: SHORTNESS OF BREATH Rhythm: Sinus Technical Quality: Technically difficult study FINDINGS Left Ventricle Normal size left ventricle. Moderate concentric left ventricular hypertrophy. Normal left ventricular ejection fraction visually estimated at >60%. Abnormal relaxation filling pattern of the left ventricle for age (stage 1 diastolic dysfunction). No obvious regional wall motion abnormalities. Right Ventricle Normal right ventricular size and function. Right Atrium Normal right atrial size. Left Atrium Normal left atrial size. Mitral Valve Mild mitral annular calcification. Mild mitral regurgitation. Aortic Valve Diffuse thickening (sclerosis) of the aortic valve cusps without reduced excursion. Mild aortic stenosis. Mild aortic regurgitation. Tricuspid Valve Tricuspid valve not well visualized, grossly normal. Trace tricuspid regurgitation. Pulmonic Valve Pulmonic valve not well visualized, grossly normal. Pericardium No pericardial effusion. Great Vessels 3.8 cm dilated aortic root CONCLUSIONS Normal size left ventricle. Moderate concentric left ventricular hypertrophy. Normal left ventricular ejection fraction visually estimated at > 60%. Abnormal relaxation filling pattern of the left ventricle for age (stage 1 diastolic dysfunction). Mild mitral regurgitation. Mild mitral annular calcification. Mild aortic stenosis. Mild aortic regurgitation. Trace tricuspid regurgitation. 3.8 cm dilated aortic root. Deondre Zepeda M.D. (Electronically Signed) Final Date: 14 January 2018 15:05 MEASUREMENTS (Male / Female) Normal Values 2D ECHO LV Diastolic Diameter PLAX 3.1 cm 4.2 - 5.9 / 3.9 - 5.3 cm LV Systolic Diameter PLAX 1.9 cm 2.1 - 4.0 cm LV Fractional Shortening PLAX 38.7 % 25 - 46 % LV Ejection Fraction 2D Teich 70.6 % IVS Diastolic Thickness 1.7 cm LVPW Diastolic Thickness 1.7 cm LV Relative Wall Thickness 1.1 RV Internal Dim ED PLAX 2.8 cm 1.9 - 3.8 cm LVOT Diameter 2.3 cm Aortic Root Diameter 3.8 cm LA Systolic Diameter LX 2.8 cm 3.0 - 4.0 / 2.7 - 3.8 cm LA Volume 19.0 cm 18 - 58 / 22 - 52 cm Ascending Aorta Diameter 3.3 cm DOPPLER AV Peak Velocity 214.0 cm/s AV Peak Gradient 18.3 mmHg AV Mean Velocity 131.0 cm/s AV Mean Gradient 9.0 mmHg AV Velocity Time Integral 41.5 cm LVOT Peak Velocity 112.0 cm/s LVOT Peak Gradient 5.0 mmHg LVOT Mean Velocity 73.0 cm/s LVOT Mean Gradient 3.0 mmHg LVOT Velocity Time Integral 20.1 cm LVOT Stroke Volume 83.5 cm AV Area Cont Eq vti 2.0 cm AV Area Cont Eq pk 2.2 cm MV Peak Velocity 152.0 cm/s MV Peak Gradient 9.2 mmHg MV Mean Velocity 93.1 cm/s MV Mean Gradient 4.0 mmHg Mitral E Point Velocity 87.9 cm/s Mitral A Point Velocity 99.2 cm/s Mitral E to A Ratio 0.9 MV PHT Velocity 143.0 cm/s MV Deceleration [place] 1942.0 cm/s MV Pressure Half Time 22.1 ms MV Area PHT 10.0 cm MV Deceleration Time 320.0 ms PV Peak Velocity 78.6 cm/s PV Peak Gradient 2.5 mmHg PV Mean Velocity 49.2 cm/s PV Mean Gradient 1.0 mmHg PV Velocity Time Integral 15.8 cm LV E' Lateral Velocity 3.0 cm/s Mitral E to LV E' Lateral Ratio 29.2 LV E' Septal Velocity 3.3 cm/s Mitral E to LV E' Septal Ratio 26.6
[2018-01-14 21:19] VITALS: BP 144/82
[2018-01-15 06:15] VITALS: BP 140/70
--- NOTE | 2018-01-15 06:51 | PN- Housestaff ---
Phil Bennett 01/15/18 0650: Subjective Follow-up For: Acute on chronic respiratory failure Complaints: pain scale (0-10) ("minor") Subjective: Patient seen and examined at the bedside. Patient was approached, she was asking for her remote which fallen off the bed. Patient now on high flow nasal cannula. Patient complains of slight abdominal pain, likely to her lumbar fracture. Discussed patient's case with Dr. Aguilar this morning, will discuss possiblity of hospice care/palliative care with patient's family later today. Review of Systems Constitutional: Reports: no symptoms. Musculoskeletal: Reports: back pain (interpreted as abd pain per pt). Objective Last 24 Hrs of Vital Signs/I&O Vital Signs Date Time Temp Pulse Resp B/P B/P Pulse O2 O2 Flow FiO2 Mean Ox Delivery Rate 01/15 0811 91 Nasal 35% Cannula 01/15 0615 98.1 79 20 140/70 98 Nasal 6.0L Cannula 01/15 0036 93 Nasal 35% Cannula 01/14 2119 98.5 83 18 144/82 93 01/14 1619 93 Nasal 35% Cannula 01/14 1600 Nasal 35% Cannula 01/14 1416 98.2 89 18 140/80 93 Nasal Cannula 01/14 1130 93 Nasal 35% Cannula 01/14 0920 94 Nasal 35% Cannula 01/14 0841 94 Nasal 35% Cannula Intake & Output 01/15 1600 01/15 0800 01/15 0000 Intake Total 500 480 Output Total Balance 500 480 Intake, IV 260 Intake, Oral 240 480 Physical Exam General Appearance: Alert, Cooperative, No Acute Distress, confused and disoriented to year; oriented to person and place Skin: No Rashes, No Breakdown Skin Temp/Moisture Exam: Warm/Dry HEENT: Atraumatic, PERRLA, EOMI Neck: Supple, No JVD, No thryomegaly Cardiovascular: Regular Rate, Normal S1, Normal S2, No Murmurs Lungs: Clear to Auscultation, Normal Air Movement Abdomen: Soft, No Tenderness, No Hepatospenomegaly Neurological: Normal Speech, Normal Tone Extremities: No Clubbing, No Cyanosis, resolving edema/thrombophlebitis of RUE Assessment/Plan Assessment: Patient is an 82-year-old female, previous heavy smoker, with complicated past medical history including 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 Has desaturated over the past couple days, now on intermittent bipap. Chest CTA showed no PE but did show mass in R upper lobe suggestive of lung cancer. Following her stabilization at the hospital here, patient will be referred to her regular oncologist for followup. Plan to discuss her case with palliative care following consult with Dr. Rutledge, with probable home hospice dispo. Problem list/plan: Acute on chronic hypoxemic and hypercarbic respiratory failure malignancy and family (Dr. Aguilar) -Poor long-term prognosis, discuss idea of hospice with patient and family, consult placed to Dr. Rutledge (palliative care) -Thoracentesis decided will not be performed per IR/pulm discussion, informal consult Acute exacerbation of COPD Possible pneumonia -Appreciate speech/swallow eval; have converted patient to nectar full liquid diet Fracture of L1 vertebra patient's family, but they are now considering DVT prophylaxis: Subcu heparin and ALPS; heparin to be DC'd if IR decides to perform thoracentesis Patient is DNR/DNI Problem List: 1. Compression fracture of first lumbar vertebra 2. Lung cancer 3. COPD exacerbation Pain Ratin Pain Location: midline/back Pain Goal: get to pain free Pain Plan: Tramadol and tylenol Tomorrow's Labs & Rationales: cbc, bep Adan Baxter 01/15/18 1120: Attending MD Review Statement Attending Statement Attending MD Statement: examined this patient, discuss w/resident/PA/PCAT INSTRUCTOR, agreed w/resident/PA/PCAT INSTRUCTOR, discussed with family, reviewed EMR data (avail), discussed with nursing, discussed with case mgmt, reviewed images, amended to note Attending Assessment/Plan: Patient seen/examined bedside. She is still on high flow oxygen. CTA chest no PE but suggestive of increased lung mass size as compared to 2016 with pulmonary nodules and bilateral pleural effusion. Pending ECHO, Continue with intermittent bipap as needed. Frequent TRCs. Patient is on prednisone and empiric abx for likely aspiraiton pneumonia. Pulmoanry on board. Blood cultures remain negaive so far. IR conuslted for possible pleural tap and planned diagnostic tap. Its very concerning her symptoms are from recurrence of cancer. Family initally declined vertebral augmentation. Patient does have oncologist at [place] and advised to follow up with her regarding CTA chest findings, She had PET scan recently with her oncologist. Consult palliative care for discussion goals of care. Possible hospice evaluation. GI/dvt prophyalxis.
[2018-01-15 08:48] LABS: ABSOLUTE BASOPHIL COUNT 0 /CUMM (0.0-0.2); ABSOLUTE EOSINOPHIL COUNT 0.2 /CUMM (0.0-0.7); ABSOLUTE LYMPH COUNT 0.8 /CUMM (1.2-3.4); HEMATOCRIT 32.5 % (37-47); MEAN PLATELET VOLUME 6.8 FL (7.4-10.4)
[2018-01-15 09:05] LABS: ABSOLUTE GRANULOCYTE CT 5.7 /CUMM (1.4-6.5); ABSOLUTE MONOCYTE COUNT 0.8 /CUMM (0.10-0.60); BASOPHIL % 0 % (0.0-2.0); GRANULOCYTE % 75.7 % (42.2-75.2); MEAN CORPUSCULAR HGB 30.8 PG (27.0-31.0); MEAN CORPUSCULAR HGB CONC 32.9 G/DL (33.0-37.0); MEAN CORPUSCULAR VOLUME 93.6 FL (81.0-99.0); PLATELET COUNT 332 /CUMM (130-400); RBC DISTRIBUTION WIDTH 18.5 % (11.5-14.5); RED BLOOD CELL CT 3.47 /CUMM (4.20-5.40)
[2018-01-15 09:09] LABS: WHITE BLOOD CELL COUNT 7.5 /CUMM (4.8-10.8)
--- NOTE | 2018-01-15 09:29 | PN- Pulmonary ---
Subjective HPI/Critical Care Issues: The patient continues on high flow oxygen. She has ongoing desaturations. She was unable to tolerate nasal cannula. She remains confused and very weak. She is not offering any complaints. Objective Current Medications: Current Medications Sig/Abhi Start time Last Medication Dose Route Stop Time Status Admin Acetaminophen 650 MG Q6P PRN 01/14 0945 AC 01/14 PO 1103 Acetaminophen 650 MG Q6P PRN 01/14 0945 AC IV Albuterol Sulfate 3 ML Q4P PRN 01/12 1500 AC 01/14 INH 0841 Albuterol Sulfate 2 PUF Q4-PRN PRN 01/06 2145 AC 01/12 INH 0614 Alprazolam 0.5 MG ONCE ONE 01/14 2045 DC 01/14 PO 01/14 Amoxicillin/ 500 MG Q12 01/15 2100 AC Clavulanate Potassium PO 01/17 09 Ampicillin Sodium/ 3,000 MG Q6 01/12 1800 DC 01/15 Sulbactam Sodium IV 0534 Sodium Chloride 100 ML Citalopram 10 MG DAILY 01/07 900 AC 01/15 Hydrobromide PO 906 Enoxaparin Sodium 40 MG DAILY 01/07 09 AC 01/15 SC 0908 Levothyroxine Sodium 0.05 MG DAILY 01/07 09 AC 01/15 PO 09 Melatonin 5 MG AT BEDTIME 01/12 0100 AC 01/14 PO 2010 Pantoprazole Sodium 40 MG DAILY 01/13 09 AC 01/15 IV 0909 Patient Medication 1 ED ONE ONE 01/14 1230 DC 01/14 Teaching ED 01/14 1231 1225 Polyethylene Glycol 17 GM DAILY 01/07 900 AC 01/12 PO 075 Prednisone 60 MG DAILY 01/12 09 AC 01/15 PO 09 Senna/Docusate Sodium 1 TAB QPM 01/07 2100 AC 01/14 PO 2010 Tramadol HCl 50 MG Q4 PRN 01/14 1315 AC 01/14 PO 1759 Vital Signs & I&O Last 24 Hrs of Vitals and I&O: Vital Signs Date Time Temp Pulse Resp B/P B/P Pulse O2 O2 Flow FiO2 Mean Ox Delivery Rate 01/15 0811 91 Nasal 35% Cannula 01/15 0615 98.1 79 20 140/70 98 Nasal 6.0L Cannula 01/15 0036 93 Nasal 35% Cannula 07/11 2119 98.5 83 18 144/82 93 01/14 1619 93 Nasal 35% Cannula 01/14 1600 Nasal 35% Cannula 01/14 1416 98.2 89 18 140/80 93 Nasal Cannula 01/14 1130 93 Nasal 35% Cannula Intake & Output 01/15 1600 01/15 0800 01/15 0000 Intake Total 500 480 Output Total Balance 500 480 Intake, IV 260 Intake, Oral 240 480 Number 1 Bowel Movements Physical Exam General Appearance: Alert, frail, confused, No Acute Distress, anxious about health Skin: eccyhmosis to BUE/BLE, chest Skin Temp/Moisture Exam: Warm/Dry HEENT: Atraumatic, PERRLA Neck: Supple Cardiovascular: Regular Rate, Normal S1, Normal S2, No Murmurs Lungs: Clear to Auscultation, Normal Air Movement Abdomen: Normal Bowel Sounds, Soft, No Tenderness Extremities: Normal Pulses, 1+ pitting edema BLE Results Last 24 Hrs of Lab Results: Laboratory Tests 01/15/18 0812: Anion Gap 8, Estimated GFR > 60, BUN/Creatinine Ratio 20.0, CBC w Diff Pending, WBC Pending, RBC Pending, Hgb Pending, Hct Pending, MCV Pending, MCH Pending, MCHC Pending, RDW Pending, Plt Count Pending, MPV Pending, Gran % Pending, Lymphocytes % Pending, Monocytes % Pending, Eosinophils % Pending, Basophils % Pending, Absolute Granulocytes Pending, Absolute Lymphocytes Pending, Absolute Monocytes Pending, Absolute Eosinophils Pending, Absolute Basophils Pending Impression/Plan Impression/Plan Impression/Plan: 1. Acute on chronic hypoxemic and hypercarbic respiratory failure. 2. AECOPD. 3. Possible pneumonia. 4. History of lung cancer, increasing right sided lesion, rule out recurrence. 5. Right greater than left pleural effusion - ? infectious, ? malignant Recommendations: * Continue oxygen for saturations greater than 92%. * Will give Diamox if bicarbonate levels continue to elevate. * Follow up culture results. * Continue Augmentin. * Continue nebulizer treatments/TRC. * Continue all supportive care. * Avoid any sedating agents. * The patient is DNR/DNI. Unfortunately, she has a long-term poor prognosis, noting she has deteriorated over the past several years. We will need to consider a palliative care/hospice consult for the future. I discussed this with the primary team and a hospice consult will be called. I will also be discussing this with the patient's partner once she is available later today.
--- NOTE | 2018-01-15 12:47 | Cons- Palliative Care ---
General Information and HPI Consulting Request Date of Consult: 01/15/18 Requested By: Adan Baxter MD Reason for Consult: care/transition planning Exam Limitations no limitations History of Present Illness: Ms. 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 Patient was recently hospitalized in November 2017 for acute on chronic hypoxic respiratory failure and was discharged to [facility] where she spent about a month and discharged home one week ago. Patient did not have any recent fall however was reported that she sat on the commode hardly and started to have low back pain afterwards, there is radiological finding of acute compression fracture of L1. Her hospital stay complicated with acute on chronic hypoxic and hypercapnic respiratory failure that required BiPAP, patient currently on high flow nasal cannula at 6 L. Dysphagia with possible aspiration pneumonia was on IV Unasyn. CTA chest revealed bilateral pleural effusion right greater than left. Patient is not candidate for thoracentesis given her respiratory situation. Patient declined vertebral augmentation of L1 at present time. Palliative care was consulted for discussion of goals of care. Allergies/Medications Allergies: Coded Allergies: STATINS (UNKNOWN PT DOES NOT REMEMBER 11/22/17) codeine (HEADACHES 05/24/17) Home Med List: Albuterol Sulfate (Proair Hfa) 90 MCG HFA.AER.AD 2 PUF INH Q4-6 PRN PRN Shortness of Breath Amoxicillin/Clavulanate Potass (Amox-Clav 875-125 MG Tablet) 875 MG-125 MG TABLET 875 MG PO Q12 Aspiration PNA Aspirin (Aspirin*) 81 MG TAB.CHEW 1 TAB PO QPM HEART HEALTH (Reported) Citalopram Hydrobromide (Citalopram HBr) 10 MG TABLET 1 TAB PO DAILY DEPRESSION (Reported) Levothyroxine Sodium (Levoxyl) 50 MCG TABLET 1 TAB PO DAILY THYROID (Reported ) Lorazepam 0.5 MG TABLET 1 TAB PO AT BEDTIME anxiety (Reported) Omeprazole 20 MG CAPSULE.DR 40 MG PO DAILY AC gastric protection Polyethylene Glycol 3350 (Miralax) 17 GRAM/DOSE POWDER 1 UNITS PO DAILY constipation Sennosides/Docusate Sodium (Senna S Tablet) 8.6 MG-50 MG TABLET 1 TAB PO QPM CONSTIPATION (Reported) Umeclidinium Elbert (Incruse Ellipta) 62.5 MCG BLST.W.DEV 1 PUFF PO DAILY COPD (Reported) Review of Systems Review of Systems Constitutional: Denies: chills, fever. EENTM: Denies: ear pain, throat pain. Respiratory: Reports: short of breath. Denies: cough. Cardiovascular: Denies: chest pain, palpitations. Gastrointestinal/Abdominal: Denies: abdominal pain, nausea, vomiting. Genitourinary: Denies: discharge, dysuria. Musculoskeletal: Reports: back pain. Skin: Denies: moles, rash. Neurological: Denies: anxiety, depressed. 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 Home Who Do You Live With? Sister Services at Home: Home Health Aide Primary Language: Guinean Smoking Status: Former Smoker ETOH Use: denies use Illicit Drug Use: denies illicit drug use Karnofsky Performance Scale: 20 Living Will? yes Power of Nurses Aide/HCP? yes Functional Ability ADLs Independent: dressing, eating, toileting, bathing. Ambulation: walker Exam & Diagnostic Data Last 24 Hrs of Vitals/I&Os: Vital Signs Date Time Temp Pulse Resp B/P B/P Pulse O2 O2 Flow FiO2 Mean Ox Delivery Rate 01/15 1514 98.4 85 18 134/74 90 6.0L 01/15 0811 91 Nasal 35% Cannula 01/15 0800 94 Nasal 35% Cannula 01/15 0615 98.1 79 20 140/70 98 Nasal 6.0L Cannula 01/15 0036 93 Nasal 35% Cannula 01/149 98.5 83 18 144/82 93 Intake & Output 01/15 1600 01/15 0800 01/15 0000 Intake Total 400 500 480 Output Total Balance 400 500 480 Intake, IV 260 Intake, Oral 400 240 480 Number 5 Bowel Movements Physical Exam General Appearance: no apparent distress, alert, awake, thin Head: atraumatic, normal appearance Eyes: Bilateral: normal appearance, PERRL. Ears, Nose, Throat: normal pharynx, normal ENT inspection Neck: normal inspection, supple Respiratory: normal breath sounds, chest non-tender, no respiratory distress Cardiovascular: regular rate/rhythm Gastrointestinal: normal bowel sounds, soft, non-tender Extremities: normal inspection, normal capillary refill, normal range of motion Diagnostic Data Lab/Micro/Pathology Results: Laboratory Tests 01/15/18 0812: Anion Gap 8, Estimated GFR > 60, BUN/Creatinine Ratio 20.0, CBC w Diff MAN DIFF ORDERED, RBC 3.47 L, MCV 93.6, MCH 30.8, MCHC 32.9 L, RDW 18.5 H, MPV 6.8 L, Gran % 75.7 H, Lymphocytes % 10.3 L, Monocytes % 11.0 H, Eosinophils % 3.0, Basophils % 0, Absolute Granulocytes 5.7, Absolute Lymphocytes 0.8 L, Absolute Monocytes 0.8 H, Absolute Eosinophils 0.2, Absolute Basophils 0, Platelet Estimate VERIFIED BY SMEAR, Hypochromic-Microcytic 1+, Poikilocytosis 1+, Anisocytosis 1+, Ovalocytes 1+ Assessment/Plan Assessment Ms. Salguero is 82 year old very pleasant lady with extensive past medical history including multiple malignancies and severe COPD on oxygen who presented to [facility] on 01/06[facility]18 for acute low back pain that turned to be acute compression fracture of L1. Patient had a complicated hospital course consist of hypoxic and hypercapnic acute on chronic respiratory failure was on BiPAP and currently on high flow nasal cannula at 6 liters with difficulty to titrate because of desaturation and patient active feeling of dyspnea. Patient has complicated pulmonary history, history of heavy smoking, COPD severe on home oxygen 1.5 nasal cannula, bilateral lung cancer with new discovered nodules on CTA in compared to 2016 images. Bilateral pleural effusion that is not amenable to thoracentesis given her current respiratory status being on high flow nasal cannula at 6 L with difficulty to titrate down. Patient is a candidate for palliative care given her significant distress from her lung cancer, pleural effusion mostly malignant, respiratory situation and low back pain. Patient's current performance status on ECOG score is mostly 4 out of 5 (score 5 denoting ). Recommendations: 1- For dyspnea we recommend morphine solution 2.5 mg 4 times a day in addition to as needed order every 2 hours 2- For anxiety Xanax 0.25 every 6 hours as needed 3- Titrate and taper oxygen as tolerated 4- Pastoral care 5-Case management to evaluate for home care 6-Hospice evaluation before discharge home 7-Consider in-hospital hospice if oxygen could not be titrated down HCA is Manuel Coy Thank you for consultation, please do not hesitate to reach out for any questions. Consult Acknowledgment - Thank you for your consult request. Attending MD Review Statement Attending Statement Attending MD Statement: examined this patient, discuss w/resident/PA/HEARING THERAPY TEACHER, agreed w/resident/PA/HEARING THERAPY TEACHER, discussed with family, reviewed EMR data (avail), discussed w/ nursing, discussed w/case mgmt, amended to note Attending Assessment/Plan: Extensive counseling session with Ms. Paez along with her [facility] - [facility]. They express understanding of the seriousness of her underlying condition and that her treating physicians do not recommend any further testing or interventions other than those to promote her comfort. Ms. Acosta expresses her desire to return home - to that end, all efforts should be focused on minimizing the need for hospital-level interventions currently in place. To the best extent possible, taper O2 to <5L/min - which is available via oxygen concentrator. Relative hypoxemia, may be tolerated as long as comfort is promoted. Low dose oral morphine (2.5mg - 5mg SL qid and q2h PRN) may be effective to reduce dyspnea and permit a comfortable transition to home. The patient and her H[facility] express understanding of the role of a home hospice program, along with the need for supplemental assistance.
[2018-01-15 15:14] VITALS: BP 134/74
[2018-01-15 22:37] VITALS: BP 133/79
[2018-01-16 07:01] VITALS: BP 146/89
--- NOTE | 2018-01-16 07:05 | PN- Housestaff ---
See Addendum Phil Bennett 01/16/18 0705: Subjective Follow-up For: acute on chronic respiratory failure Subjective: Patient was seen and examined at bedside. Other than mild pain in abdomen, patient has no complaints. Spoke with palliative care yesterday, plan is to wean patient from oxygen to <=5 L with planned discharge to home hospice. Review of Systems Constitutional: Reports: no symptoms. Gastrointestinal: Reports: abdominal pain (minimal). Objective Last 24 Hrs of Vital Signs/I&O Vital Signs Date Time Temp Pulse Resp B/P B/P Pulse O2 O2 Flow FiO2 Mean Ox Delivery Rate 01/16 0855 91 Nasal 35% Cannula 01/16 0701 97.9 75 18 146/89 91 01/16 0023 94 Nasal 35% Cannula 01/16 0000 Nasal 35% Cannula 01/15 2237 96.5 73 20 133/79 95 35% 01/15 2202 93 Nasal 35% Cannula 01/15 1935 93 Nasal 35% Cannula 01/15 1700 92 Nasal 35% Cannula 01/15 1600 Nasal 35% Cannula 01/15 1514 98.4 85 18 134/74 90 6.0L Intake & Output 01/16 1600 01/16 0800 01/16 0000 Intake Total 60 480 Output Total Balance 60 480 Intake, Oral 60 480 Number 1 Bowel Movements Physical Exam General Appearance: Alert, Cooperative, No Acute Distress, mildly confused Assessment/Plan Assessment: Patient is an 82-year-old female, previous heavy smoker, with complicated past medical history including 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 Has desaturated over the past couple days, now on intermittent bipap. Chest CTA showed no PE but did show mass in R upper lobe suggestive of lung cancer. Following her stabilization at the hospital here, patient will be referred to her regular oncologist for followup. Plan to discuss her case with palliative care following consult with Dr. Case, with planned home hospice dispo tomorrow. Problem list/plan: Acute on chronic hypoxemic and hypercarbic respiratory failure malignancy and family (Dr. Aguilar) -Poor long-term prognosis, discuss idea of hospice with patient and family, consult placed to Dr. Case (palliative care) -Thoracentesis decided will not be performed per IR/pulm discussion, informal consult Acute exacerbation of COPD Possible pneumonia resolved -Appreciate speech/swallow eval; have converted patient to nectar full liquid diet Fracture of L1 vertebra patient's family, but they are now considering DVT prophylaxis: Subcu heparin and ALPS Patient is DNR/DNI Problem List: 1. Compression fracture of first lumbar vertebra 2. COPD exacerbation 3. Lung cancer Pain Ratin Pain Location: abdomen Pain Goal: Remain pain free Pain Plan: Tramadol and tylenol Tomorrow's Labs & Rationales: cbc/bep Discharge Plan Discharge Disposition: home hospice Stable for Discharge? No Anticipated Discharge (Day): tomorrow VeeAdan magallon 01/16/18 1135: Attending MD Review Statement Attending Statement Attending MD Statement: examined this patient, discuss w/resident/PA/BROADCAST TRAFFIC COORDINATOR, agreed w/resident/PA/BROADCAST TRAFFIC COORDINATOR, discussed with family, reviewed EMR data (avail), discussed with nursing, discussed with case mgmt, reviewed images, amended to note Attending Assessment/Plan: Patient only c/o epigastric pain. She is still on high flow oxygen. Watching TV. Pallaitive care comnsulted and had length discussion with family regarding goals of care. Patient inclined to comfort measures and she is possible candiate for home discharge to hospice if we can wean off oxygen. Case management aware. Antcipate discharge to home hospice.
[2018-01-16 07:51] LABS: ABSOLUTE BASOPHIL COUNT 0 /CUMM (0.0-0.2); ABSOLUTE EOSINOPHIL COUNT 0.1 /CUMM (0.0-0.7); ABSOLUTE GRANULOCYTE CT 5.6 /CUMM (1.4-6.5); ABSOLUTE LYMPH COUNT 0.6 /CUMM (1.2-3.4); ABSOLUTE MONOCYTE COUNT 1.1 /CUMM (0.10-0.60); BASOPHIL % 0 % (0.0-2.0); GRANULOCYTE % 76.2 % (42.2-75.2); HEMATOCRIT 31.7 % (37-47); MEAN CORPUSCULAR HGB 30.4 PG (27.0-31.0); MEAN CORPUSCULAR HGB CONC 32.5 G/DL (33.0-37.0); MEAN CORPUSCULAR VOLUME 93.6 FL (81.0-99.0); MEAN PLATELET VOLUME 6.8 FL (7.4-10.4); PLATELET COUNT 296 /CUMM (130-400); RBC DISTRIBUTION WIDTH 18.4 % (11.5-14.5); RED BLOOD CELL CT 3.39 /CUMM (4.20-5.40); WHITE BLOOD CELL COUNT 7.4 /CUMM (4.8-10.8)
--- NOTE | 2018-01-16 08:37 | PN- Pulmonary ---
Subjective HPI/Critical Care Issues: 24 hour events noted. The patient has been evaluated by palliative care and is considered a candidate given her significant distress, lung cancer, pleural effusions, and chronic respiratory failure. She remains on high flow oxygen at this time. There were no overnight events reported per Objective Current Medications: Current Medications Sig/Abhi Start time Last Medication Dose Route Stop Time Status Admin Acetaminophen 650 MG Q6P PRN 01/14 0945 AC 01/14 PO 1103 Acetaminophen 650 MG Q6P PRN 01/14 0945 AC IV Albuterol Sulfate 3 ML Q4P PRN 01/12 1500 AC 01/14 INH 0841 Albuterol Sulfate 2 PUF Q4-PRN PRN 01/06 2145 AC 01/12 INH 0614 Alprazolam 0.5 MG AT BEDTIME PRN 01/15 2000 AC 01/15 PO 2005 Amoxicillin/ 500 MG Q12 01/15 2100 CAN Clavulanate Potassium PO 01/17 09 Ampicillin Sodium/ 3,000 MG Q6 01/12 1800 DC 01/15 Sulbactam Sodium IV 0534 Sodium Chloride 100 ML Citalopram 10 MG DAILY 01/07 09 AC 01/15 Hydrobromide PO 09 Enoxaparin Sodium 40 MG DAILY 01/07 09 AC 01/15 SC 0908 Levothyroxine Sodium 0.05 MG DAILY 01/07 09 AC 01/15 PO 09 Melatonin 5 MG AT BEDTIME 01/12 0100 AC 01/15 PO 2004 Morphine Sulfate 2 MG ONCE ONE 01/15 1445 DC 01/15 IV 01/15 1446 1513 Pantoprazole Sodium 40 MG DAILY 01/13 0927 AC 01/15 IV 0909 Polyethylene Glycol 17 GM DAILY 01/07 900 AC 01/12 PO 075 Prednisone 60 MG DAILY 01/12 09 AC 01/15 PO 09 Senna/Docusate Sodium 1 TAB QPM 01/07 2100 AC 01/15 PO 2004 Tramadol HCl 50 MG Q4 PRN 01/14 1315 AC 01/16 PO 0507 Vital Signs & I&O Last 24 Hrs of Vitals and I&O: Vital Signs Date Time Temp Pulse Resp B/P B/P Pulse O2 O2 Flow FiO2 Mean Ox Delivery Rate 01/16 701 97.9 75 18 146/89 91 01/16 0023 94 Nasal 35% Cannula 01/16 0000 Nasal 35% Cannula 01/15 2237 96.5 73 20 133/79 95 35% 01/15 2202 93 Nasal 35% Cannula 01/15 1935 93 Nasal 35% Cannula 01/15 1700 92 Nasal 35% Cannula 01/15 1600 Nasal 35% Cannula 01/15 1514 98.4 85 18 134/74 90 6.0L Intake & Output 01/16 1600 01/16 0800 01/16 0000 Intake Total 60 480 Output Total Balance 60 480 Intake, Oral 60 480 Number 1 Bowel Movements Physical Exam General Appearance: Alert, frail, confused, No Acute Distress, anxious about health Skin: eccyhmosis to BUE/BLE, chest Skin Temp/Moisture Exam: Warm/Dry HEENT: Atraumatic, PERRLA Neck: Supple Cardiovascular: Regular Rate, Normal S1, Normal S2, No Murmurs Lungs: Clear to Auscultation, Normal Air Movement Abdomen: Normal Bowel Sounds, Soft, No Tenderness Extremities: Normal Pulses, 1+ pitting edema BLE Results Last 24 Hrs of Lab Results: Laboratory Tests 01/16/18 0630: Anion Gap 5, Estimated GFR > 60, BUN/Creatinine Ratio 24.0, CBC w Diff NO MAN DIFF REQ, RBC 3.39 L, MCV 93.6, MCH 30.4, MCHC 32.5 L, RDW 18.4 H, MPV 6.8 L , Gran % 76.2 H, Lymphocytes % 8.1 L, Monocytes % 14.7 H, Eosinophils % 1.0, Basophils % 0, Absolute Granulocytes 5.6, Absolute Lymphocytes 0.6 L, Absolute Monocytes 1.1 H, Absolute Eosinophils 0.1, Absolute Basophils 0 Impression/Plan Impression/Plan Impression/Plan: 1. Severe end stage acute on chronic hypoxemic and hypercarbic respiratory failure. 2. End stage COPD. 3. Possible pneumonia. 4. History of lung cancer, increasing right sided lesion, suggestive of recurrence. 5. Right greater than left pleural effusion - ? infectious, ? malignant Recommendations: * Continue oxygen for saturations greater than 92%. * Give Diamox 250 mg p.o. 1 today. * Follow up culture results. * Continue prednisone taper. * Continue nebulizer treatments/TRC. * The patient is DNR/DNI. Unfortunately, she has a long-term poor prognosis. * I agree with transferring the level of care to palliative care/hospice.
[2018-01-16] MEDS ORDERED: TRAMADOL HCL50 M1 PO (11:40)
[2018-01-16 14:30] VITALS: BP 107/62
[2018-01-16 21:55] VITALS: BP 102/54
[2018-01-17 07:19] VITALS: BP 102/58
--- NOTE | 2018-01-17 08:25 | PN- Housestaff ---
See Addendum Subjective Follow-up For: Lung cancer, L1 fracture Subjective: Patient seen and examined at bedside. Patient sleepy, exhibited 1 or 2 word answers. Patient denied complaints, no acute events overnight. No desats noted. Patient denied fever/chills/night//chest pain/abdominal pain/urinary symptoms/lower extremity edema. Review of Systems Constitutional: Reports: see HPI. Objective Last 24 Hrs of Vital Signs/I&O Vital Signs Date Time Temp Pulse Resp B/P B/P Pulse O2 O2 Flow FiO2 Mean Ox Delivery Rate 01/17 719 97.7 66 20 102/58 93 01/17 0000 Nasal 4.0L Cannula 01/16 2155 97.4 71 20 102/54 100 Nasal 4.0L Cannula 01/17 2024 93 Nasal 4.0L Cannula 01/16 1600 100 Nasal 4.0L Cannula Intake & Output 01/17 1600 01/17 0800 01/17 0000 Intake Total 0 70 110 Output Total Balance 0 70 110 Intake, IV 0 20 10 Intake, Oral 50 100 Number 0 Bowel Movements Physical Exam General Appearance: Alert, Oriented X3, Cooperative, No Acute Distress Skin: No Rashes Skin Temp/Moisture Exam: Warm/Dry Cardiovascular: Regular Rate, Normal S1, Normal S2 Lungs: Clear to Auscultation, Normal Air Movement Abdomen: Soft, No Tenderness Neurological: Sensation Intact Extremities: Normal Pulses, 1+ edema BLE Current Medications: Current Medications Sig/Abhi Start time Last Medication Dose Route Stop Time Status Admin Acetaminophen 650 MG .STK-MED ONE 01/16 2054 DC PO 01/16 2055 Acetaminophen 650 MG Q6P PRN 01/14 945 AC 01/16 PO 2055 Acetaminophen 650 MG Q6P PRN 01/14 945 AC 01/16 IV 0947 Al Hydroxide/Mg 30 ML Q4-6 PRN PRN 01/16 0930 AC Hydroxide PO Albuterol Sulfate 3 ML Q4P PRN 01/12 1500 AC 01/14 INH 0841 Albuterol Sulfate 2 PUF Q4-PRN PRN 01/06 214 AC 01/12 INH 0614 Alprazolam 0.5 MG AT BEDTIME PRN 01/16 2000 AC 01/16 PO 2051 Citalopram 10 MG DAILY 01/07 900 AC 01/16 Hydrobromide PO 947 Enoxaparin Sodium 40 MG DAILY 01/07 09 AC 01/17 SC 0822 Levothyroxine Sodium 0.05 MG DAILY 01/07 0900 AC 01/16 PO 0948 Melatonin 5 MG AT BEDTIME 01/12 0100 AC 01/16 PO 2051 Morphine Sulfate 2 MG Q2P PRN 01/16 1330 AC PO Morphine Sulfate 2.5 MG Q6 01/16 1322 AC 01/17 PO 06 Omeprazole 40 MG DAILY AC 01/17 07 AC 01/17 PO 613 Pantoprazole Sodium 40 MG DAILY 01/13 09 AC 01/17 IV 0822 Polyethylene Glycol 17 GM DAILY 01/07 09 AC 01/12 PO 0754 Prednisone 50 MG DAILY 01/17 09 AC PO Senna/Docusate Sodium 1 TAB QPM 01/07 2100 AC 01/16 PO 2051 Tramadol HCl 50 MG Q4 PRN 01/14 1315 AC 01/16 PO 1207 Assessment/Plan Assessment: Patient is an 82-year-old female, previous heavy smoker, with complicated past medical history including 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 Has desaturated over the past couple days, now on intermittent bipap. Chest CTA showed no PE but did show mass in R upper lobe suggestive of lung cancer. Following her stabilization at the hospital here, patient will be referred to her regular oncologist for followup. Potential discharge to home hospice today Problem list/plan: #Acute on chronic hypoxemic and hypercarbic respiratory failure malignancy and family (Dr. Aguilar) -D/w palliative care doctor -Thoracentesis decided will not be performed per IR/pulm discussion, informal consult #Acute exacerbation of COPD #Pneumonia - resolved -Appreciate speech/swallow eval; have converted patient to nectar full liquid diet #Fracture of L1 vertebra performed per family wishes DVT prophylaxis: Subcu heparin and ALPS Patient is DNR/DNI Dispo - to home hospice, potentially today Problem List: 1. Lung cancer 2. Compression fracture of first lumbar vertebra Pain Ratin Pain Location: na Pain Goal: Pain 4 or less Pain Plan: Pain pathway + Hospice meds Tomorrow's Labs & Rationales: na
--- NOTE | 2018-01-17 14:24 | PN- Pulmonary ---
Subjective HPI/Critical Care Issues: The patient is sleeping comfortably then arousable. She remains confused. She is very forgetful but pleasant and follows commands. She is moving all extremities independently. She remains on nasal cannula at 4 L/min. Objective Current Medications: Current Medications Sig/Abhi Start time Last Medication Dose Route Stop Time Status Admin Acetaminophen 650 MG .STK-MED ONE 01/16 2054 DC PO 01/16 2055 Acetaminophen 650 MG Q6P PRN 01/14 945 AC 01/16 PO 2055 Acetaminophen 650 MG Q6P PRN 01/14 0945 AC 01/16 IV 0947 Al Hydroxide/Mg 30 ML Q4-6 PRN PRN 01/16 0930 AC Hydroxide PO Albuterol Sulfate 3 ML Q4P PRN 01/12 1500 AC 01/14 INH 0841 Albuterol Sulfate 2 PUF Q4-PRN PRN 01/06 2145 AC 01/12 INH 0614 Alprazolam 0.5 MG AT BEDTIME PRN 01/15 2000 AC 01/16 PO 2051 Citalopram 10 MG DAILY 01/07 09 AC 01/16 Hydrobromide PO 0948 Enoxaparin Sodium 40 MG DAILY 01/07 0900 AC 01/17 SC 0822 Levothyroxine Sodium 0.05 MG DAILY 01/07 0900 AC 01/16 PO 0948 Melatonin 5 MG AT BEDTIME 01/12 0100 AC 01/16 PO 2051 Morphine Sulfate 2 MG Q2P PRN 01/16 1330 AC PO Morphine Sulfate 2.5 MG Q6 01/16 1322 AC 01/17 PO 0614 Omeprazole 40 MG DAILY AC 01/17 07 AC 01/17 PO 0614 Pantoprazole Sodium 40 MG DAILY 01/13 0927 AC 01/17 IV 0822 Polyethylene Glycol 17 GM DAILY 01/07 0900 AC 01/12 PO 0754 Prednisone 50 MG DAILY 01/17 0900 AC PO Senna/Docusate Sodium 1 TAB QPM 01/07 2100 AC 01/16 PO 2051 Tramadol HCl 50 MG Q4 PRN 01/14 1315 AC 01/16 PO 1207 Vital Signs & I&O Last 24 Hrs of Vitals and I&O: Vital Signs Date Time Temp Pulse Resp B/P B/P Pulse O2 O2 Flow FiO2 Mean Ox Delivery Rate 01/17 719 97.7 66 20 102/58 93 01/17 0000 Nasal 4.0L Cannula 01/16 2155 97.4 71 20 102/54 100 Nasal 4.0L Cannula 01/16 2024 93 Nasal 4.0L Cannula 01/16 1600 100 Nasal 4.0L Cannula 01/16 1430 96.7 77 20 107/62 100 Nasal 5.0L Cannula Intake & Output 01/17 1600 01/17 0800 01/17 0000 Intake Total 70 110 Output Total Balance 70 110 Intake, IV 20 10 Intake, Oral 50 100 Physical Exam General Appearance: Alert, frail, confused, No Acute Distress Skin: eccyhmosis to BUE/BLE, chest Skin Temp/Moisture Exam: Warm/Dry HEENT: Atraumatic, PERRLA Neck: Supple Cardiovascular: Regular Rate, Normal S1, Normal S2, No Murmurs Lungs: Clear to Auscultation, Normal Air Movement Abdomen: Normal Bowel Sounds, Soft, No Tenderness Extremities: Normal Pulses, 1+ pitting edema BLE Impression/Plan Impression/Plan Impression/Plan: 1. Acute on chronic hypoxemic and hypercarbic respiratory failure. 2. AECOPD. 3. Possible pneumonia. 4. History of lung cancer, increasing right sided lesion, rule out recurrence/ progression of malignancy. 5. Right greater than left pleural effusion - ? infectious, ? malignant Recommendations: * Continue oxygen for saturations greater than 92%. Taper down if able. * Continue prednisone taper. * Continue nebulizer treatments/TRC. * The patient is DNR/DNI. Unfortunately, she has a long-term poor prognosis. * I agree with transferring the level of care to palliative care/hospice. * Will follow on an as-needed basis. Please call with any questions.
[2018-01-17 15:39] VITALS: BP 90/50
[2018-01-17 21:00] VITALS: BP 122/62
[2018-01-18 06:31] VITALS: BP 128/66
--- NOTE | 2018-01-18 10:25 | PN- Housestaff ---
See Addendum Subjective Follow-up For: Lung cancer, L1 fracture Subjective: Patient seen and examined at bedside. Patient was more awake today, denied complaints. Patient states that she did not have any fever/chills/night sweats/ chest pain/abdominal pain/urinary symptoms. Review of Systems Constitutional: Reports: see HPI. Objective Last 24 Hrs of Vital Signs/I&O Vital Signs Date Time Temp Pulse Resp B/P B/P Pulse O2 O2 Flow FiO2 Mean Ox Delivery Rate 01/18 0952 92 Nasal 5.0L Cannula 01/18 0800 Nasal 5.0L Cannula 01/18 0631 97.8 76 20 128/66 96 07 0000 96 Nasal 5.0L Cannula 01/17 2110 91 Nasal 5.0L Cannula 01/17 2100 98.1 82 19 122/62 90 Nasal 4.0L Cannula 01/17 1953 95 Nasal 4.0L Cannula 01/17 1600 Nasal 4.0L Cannula 01/17 1539 97.9 18 90/50 88 Nasal 4.0L Cannula Intake & Output 01/18 1600 01/18 0800 01/18 0000 Intake Total 90 480 Output Total Balance 90 480 Intake, IV 10 Intake, Oral 80 480 Number 1 Bowel Movements Physical Exam General Appearance: Alert, Oriented X3, Cooperative, No Acute Distress Skin: No Rashes Skin Temp/Moisture Exam: Warm/Dry Cardiovascular: Regular Rate, Normal S1, Normal S2 Lungs: Clear to Auscultation, Normal Air Movement Abdomen: Soft, No Tenderness Neurological: Sensation Intact Extremities: No Edema Current Medications: Current Medications Sig/Abhi Start time Last Medication Dose Route Stop Time Status Admin Acetaminophen 650 MG Q6P PRN 01/14 0945 AC 01/18 PO 0819 Acetaminophen 650 MG Q6P PRN 01/14 0945 AC 01/16 IV 0947 Al Hydroxide/Mg 30 ML Q4-6 PRN PRN 01/16 0930 AC Hydroxide PO Albuterol Sulfate 3 ML Q4P PRN 01/12 1500 AC 01/17 INH 211 Albuterol Sulfate 2 PUF Q4-PRN PRN 01/06 214 AC 01/12 INH 0614 Alprazolam 0.5 MG AT BEDTIME PRN 01/16 2000 AC 01/16 PO 205 Benzocaine 1 ROEL Q4-6 PRN PRN 01/17 2045 AC 01/18 TOP 0819 Citalopram 10 MG DAILY 01/07 09 AC 01/18 Hydrobromide PO 08 Enoxaparin Sodium 40 MG DAILY 01/07 09 AC 01/18 SC 0819 Levothyroxine Sodium 0.05 MG DAILY 01/07 0900 AC 01/18 PO 0820 Melatonin 5 MG AT BEDTIME 01/12 0100 AC 01/17 PO 204 Morphine Sulfate 2 MG Q2P PRN 01/16 1330 AC PO Morphine Sulfate 2.5 MG Q6 01/16 1322 AC 01/18 PO 0519 Omeprazole 40 MG DAILY AC 01/17 07 AC 01/18 PO 0519 Pantoprazole Sodium 40 MG DAILY 01/13 0927 AC 01/18 IV 0819 Polyethylene Glycol 17 GM DAILY 01/07 09 AC 01/12 PO 0754 Prednisone 50 MG DAILY 01/17 09 AC 01/18 PO 0820 Senna/Docusate Sodium 1 TAB QPM 01/07 2100 AC 01/17 PO 204 Tramadol HCl 50 MG Q4 PRN 01/14 1315 AC 01/17 PO 204 Assessment/Plan Assessment: Patient is an 82-year-old female, previous heavy smoker, with complicated past medical history including 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 Has desaturated over the past couple days, now on intermittent bipap. Chest CTA showed no PE but did show mass in R upper lobe suggestive of lung cancer. Following her stabilization at the hospital here, patient will be referred to her regular oncologist for followup. Potential discharge to home hospice today Problem list/plan: #Acute on chronic hypoxemic and hypercarbic respiratory failure malignancy and family (Dr. Aguilar) -D/w palliative care doctor -Thoracentesis decided will not be performed per IR/pulm discussion, informal consult #Acute exacerbation of COPD #Pneumonia - resolved -Appreciate speech/swallow eval; have converted patient to nectar full liquid diet #Fracture of L1 vertebra performed per family wishes DVT prophylaxis: Subcu heparin and ALPS Patient is DNR/DNI Dispo - to home hospice, TODAY 01/18 Problem List: 1. Lung cancer 2. Compression fracture of first lumbar vertebra Pain Ratin Pain Location: Back Pain Goal: Pain 7 or less Pain Plan: Hospice meds Tomorrow's Labs & Rationales: na Discharge Plan Anticipated Discharge (Day): today
[2018-01-18] MEDS ORDERED: SENNA PLUS TAB1 EACH PO (12:53)
[2018-01-18] MEDS ORDERED: MELATONIN5 M7 PO (12:53)
[2018-01-18] MEDS ORDERED: MIRALAX119 GM PO (12:53)
[2018-01-18] MEDS ORDERED: MORPHINE S10 MG/5 M2 PO ×4 (12:53→14:42)
[2018-01-18] MEDS ORDERED: ALPRAZOLAM0.5 M4 PO (12:55)
[2018-01-18] MEDS ORDERED: LORAZEPAM0.5 M1 PO (14:42)
== END 2018-01-18 13:05 | disposition home or self-care (01) | DRG 189 ==
LOC: ERH 12:06 → 2NB 15:32 → ERHI 15:32 → ENRESERV 16:16 → ENTRNSPT 16:55 → 2NB 17:04 → EDTRNSPTSTS 17:04 → EDTRNSPT 17:04 → 2NB 17:08 → CMPTRNSPT 17:23 → 2NB 01-08 07:45 → ENPENDDIS 01-18 11:10 → 2NB 01-18 13:05
PROVIDERS: General Practice; Physician Assistant Medical
PROC: 5A09457 Assistance with Respiratory Ventilation, 24-96 Consecutive Hours, Continuous Positive Airway Pressure (ICD-10-PCS; principal; 2018-01-12)
DX: J96.21 Acute and chronic respiratory failure with hypoxia (principal); M80.88XA Other osteoporosis with current pathological fracture, vertebra(e), initial encounter for fracture; E87.1 Hypo-osmolality and hyponatremia; J44.1 Chronic obstructive pulmonary disease with (acute) exacerbation; C34.90 Malignant neoplasm of unspecified part of unspecified bronchus or lung; J96.22 Acute and chronic respiratory failure with hypercapnia; Z51.5 Encounter for palliative care; Z99.81 Dependence on supplemental oxygen; E03.9 Hypothyroidism, unspecified; H54.40 Blindness, one eye, unspecified eye; F41.9 Anxiety disorder, unspecified; Z85.72 Personal history of non-Hodgkin lymphomas; Z88.5 Allergy status to narcotic agent; Z88.8 Allergy status to other drugs, medicaments and biological substances; E78.5 Hyperlipidemia, unspecified; I10 Essential (primary) hypertension; Z90.710 Acquired absence of both cervix and uterus; Z90.49 Acquired absence of other specified parts of digestive tract; F32.9 Major depressive disorder, single episode, unspecified; Z79.82 Long term (current) use of aspirin; Z79.51 Long term (current) use of inhaled steroids; R91.8 Other nonspecific abnormal finding of lung field; Z66 Do not resuscitate
CPT/HCPCS: 2NBP; 2NBSP; 36415; 36592; 71045; 74176; 81001; 82436; 87040; 87070; 87086; 93306; 96361; 96374; 97161-GP; 97530-GO; J0131; J0630; J0696; J1650; J2270; J2920; J3490; J7512